=== PATIENT | female | born 1955 | race Caucasian/White ===

== ENCOUNTER 2016-11-02 17:33 | Emergency (ER) | payer MEDICARE, OTHER ==
[2016-11-02 17:46] VITALS: BP 154/72
[2016-11-02] MEDS ORDERED: Fluorescein Sodium TOPICAL* 1 MG TEST ONE (17:49)
[2016-11-02] MEDS ORDERED: BSS OPTH.SOL* BTL ONE (17:50)
[2016-11-02] MEDS ORDERED: Proparacaine 0.5% OPHTH.SOL* 15 ML BTL ONE (17:50)
--- NOTE | 2016-11-02 18:05 | UC ---
Eye Complaint HPI - HPI Summary HPI Summary: patient rolled out of bed and hit her nightstand with left eye and nose. nose bledd profusely at the time. eye pain started throughout the day. increased in blurred vision and pain. - History of Current Complaint Chief Complaint: UCHeadInjury Stated Complaint: LEFT EYE/FACIAL INJURY Time Seen by Provider: 11/02/16 18:00 Hx Obtained From: Patient Hx Last Menstrual Period: n/a ?: No Onset/Duration: Sudden Onset, Lasting Hours Timing: Constant Severity Initially: Moderate Severity Currently: Moderate Pain Intensity: 6 Pain Scale Used: 0-10 Numeric Location of Injury: Eye Lid (lower), Eye Lid (upper), Periorbital, Sclera Character: Dull Aggravating Factor(s): Nothing Alleviating Factor(s): Nothing Associated Signs And Symptoms: Positive: Vision Impairment Left Related History: Trauma - Risk Factors Penetrating Injury Risk Factor: Negative, Hammering Acute Glaucoma Risk Factors: Negative Optic Artery Occlusion Risk Factors: Negative - Allergies/Home Medications Allergies/Adverse Reactions: Allergies Allergy/AdvReac Type Severity Reaction Status Date / Time Buspirone [From Buspar] Allergy Unknown Verified 11/02/16 17:46 Reaction Details Cephalexin [From Keflex] Allergy Unknown Verified 11/02/16 17:46 Reaction Details Lidocaine Allergy Unknown Verified 11/02/16 17:46 Reaction Details Tetanus Toxoid Allergy Swelling Verified 11/02/16 17:46 Procaine [From Novocain] AdvReac Intermediate Shortness Verified 11/02/16 17:46 of Breath Epinephrine AdvReac Shortness Verified 11/02/16 17:46 of Breath antihistamines Allergy See Comment Uncoded 11/02/16 17:46 PMH/Surg Hx/FS Hx/Imm Hx Previously Healthy: Yes Endocrine History Of: Reports: Thyroid Disease - hypothyroid Denies: Diabetes Cardiovascular History Of: Reports: Hypertension - stable now without medications Denies: Cardiac Disorders Respiratory History Of: Denies: COPD, Asthma GI/ History Of: Reports: Ulcer - Surgical History Surgical History: Yes Surgery Procedure, Year, and Place: LENORE KNEE REPLACEMENT, TONSILLECTOMY. D&C. L carpal tunnel surgery. cataracts - Family History Known Family History: Positive: Cardiac Disease, Hypertension - Social History Alcohol Use: None Substance Use Type: None Smoking Status (MU): Former Smoker Type: Cigarettes, Cigars Amount Used/How Often: 1 PPD Length of Time of Smoking/Using Tobacco: 35+ years Have You Smoked in the Last Year: Yes Household Exposure Type: Cigarettes - Immunization History Most Recent Influenza Vaccination: 2012 Review of Systems Constitutional: Negative Skin: Other - bruising and abrasions Eyes: Blurred Vision ENT: Negative Respiratory: Negative Cardiovascular: Negative Gastrointestinal: Negative Genitourinary: Negative Motor: Negative Neurovascular: Negative Musculoskeletal: Negative Neurological: Negative Psychological: Negative All Other Systems Reviewed And Are Negative: Yes Physical Exam Triage Information Reviewed: Yes Appearance: Well-Appearing, Well-Nourished, Pain Distress Vital Signs: Initial Vital Signs Temp 96.0 F 11/02/16 17:44 Pulse 74 11/02/16 17:44 Resp 14 11/02/16 17:44 BP 154/72 11/02/16 17:44 Pulse Ox 99 11/02/16 17:44 Vital Signs Reviewed: Yes Eye Exam: Normal Eyes: Positive: Conjunctiva Clear, Other: - a line of brusing over both eyelids , abraision under the left eye. flurescene revealed no corneal abraisions blurred vision continues EMOI, PERRLA, denies double vision, peripheral vision intact, can differentiate colors. no conjunctival hemmorage or hyphema ENT Exam: Normal ENT: Positive: Hearing grossly normal, Pharyngeal erythema, TMs normal Dental Exam: Normal Neck exam: Normal Neck: Positive: Supple, Nontender, No Lymphadenopathy Respiratory Exam: Normal Respiratory: Positive: Chest non-tender, Lungs clear, Normal breath sounds Cardiovascular Exam: Normal Cardiovascular: Positive: RRR, No Murmur, Pulses Normal Abdominal Exam: Normal Abdomen Description: Positive: Nontender, No Organomegaly, Soft Bowel Sounds: Positive: Present Musculoskeletal Exam: Normal Musculoskeletal: Positive: Strength Intact, ROM Intact, No Edema Neurological Exam: Normal Neurological: Positive: Alert, Muscle Tone Normal Psychological Exam: Normal Skin Exam: Normal Eye Complaint Course/Dx - Course Course Of Treatment: history obtianed, medications reviewed, exam performed, Eye sxam performed no medications given, referred to Dr Johnson, to follow up friday. - Differential Dx/Diagnosis Differential Diagnosis/HQI/PQRI: Conjunctivitis, Corneal Abrasion, Detached Retina, Foreign Body, Hyphema, Penetrating Injury, Periorbital Cellulitis, Orbital Cellulitis, Other - orbital fracture Provider Diagnoses: blurred vision. bruise over left eye, from blunt trauma. abraision to nose and face Discharge - Discharge Plan Condition: Stable Disposition: HOME Patient Education Materials: Blurred Vision (ED) Additional Instructions: Continue to ice the nose and eye, Ibuprofen or tylenol for pain relief. Follow up with Dr Johnson on Friday, if vision changes get worse, pain increases follow up in ER immediately
== END 2016-11-02 18:12 | disposition home or self-care (01) ==
LOC: UCCORT 17:33
DX: S00.31XA Abrasion of nose, initial encounter (principal); S00.212A Abrasion of left eyelid and periocular area, initial encounter; W01.190A Fall on same level from slipping, tripping and stumbling with subsequent striking against furniture, initial encounter; H53.8 Other visual disturbances; E03.9 Hypothyroidism, unspecified; K28.9 Gastrojejunal ulcer, unspecified as acute or chronic, without hemorrhage or perforation; F17.210 Nicotine dependence, cigarettes, uncomplicated; Z77.22 Contact with and (suspected) exposure to environmental tobacco smoke (acute) (chronic); Z57.31 Occupational exposure to environmental tobacco smoke; Z96.653 Presence of artificial knee joint, bilateral; Z88.7 Allergy status to serum and vaccine; Z88.8 Allergy status to other drugs, medicaments and biological substances; Z88.1 Allergy status to other antibiotic agents; Z88.4 Allergy status to anesthetic agent
CPT/HCPCS: 99212; A9270-GY; G0463

== ENCOUNTER 2017-06-06 14:21 | Emergency (ER) | payer MEDICARE, OTHER ==
[2017-06-06 14:40] VITALS: BP 133/80
--- NOTE | 2017-06-06 14:56 | UC ---
Skin Complaint HPI - HPI Summary HPI Summary: itching in a patch in the center of her back---has tried some topical benadryl and topical cortaid with out relief cool compress seem to help - History of Current Complaint Chief Complaint: UCSkin Time Seen by Provider: 06/06/17 14:47 Stated Complaint: LOWER NECK/LEFT SHOULDER PAIN ITCHING Hx Obtained From: Patient Hx Last Menstrual Period: n/a ?: No Onset/Duration: Gradual Onset, Lasting Weeks - 1, Still Present Timing: Constant Onset Severity: Mild Current Severity: Mild Location: Discrete - 15 cm by 15 cm raised patch of erythema on center of back Character: Redness - itching, Raised Aggravating: Nothing Alleviating: Nothing Associated Signs & Symptoms: Positive: Negative, Rash - Allergy/Home Medications Allergies/Adverse Reactions: Allergies Allergy/AdvReac Type Severity Reaction Status Date / Time Buspirone [From Buspar] Allergy Unknown Verified 06/06/17 14:41 Reaction Details Cephalexin [From Keflex] Allergy Unknown Verified 06/06/17 14:41 Reaction Details Lidocaine Allergy Unknown Verified 06/06/17 14:41 Reaction Details Tetanus Toxoid Allergy Swelling Verified 06/06/17 14:41 Procaine [From Novocain] AdvReac Intermediate Shortness Verified 06/06/17 14:41 of Breath Epinephrine AdvReac Shortness Verified 06/06/17 14:41 of Breath antihistamines Allergy See Comment Uncoded 06/06/17 14:41 Review of Systems Constitutional: Negative Skin: Rash, Other - itchy Eyes: Negative ENT: Negative Respiratory: Negative Cardiovascular: Negative Gastrointestinal: Negative Genitourinary: Negative Motor: Negative Neurovascular: Negative Musculoskeletal: Negative Neurological: Negative Psychological: Negative All Other Systems Reviewed And Are Negative: Yes PMH/Surg Hx/FS Hx/Imm Hx Previously Healthy: No Endocrine History: Hypothyroidism, Dyslipidemia Cardiovascular History: Hypertension GI/ History: Gastroesophageal Reflux Psychological History: Bipolar Disorder - Surgical History Surgical History: Yes Surgery Procedure, Year, and Place: LENORE KNEE REPLACEMENT, TONSILLECTOMY. D&C. L carpal tunnel surgery. cataracts - Family History Known Family History: Positive: Cardiac Disease, Hypertension - Social History Occupation: Unemployed Lives: With Family Alcohol Use: None Substance Use Type: None Smoking Status (MU): Former Smoker Type: Cigarettes, Cigars Amount Used/How Often: 1 PPD Length of Time of Smoking/Using Tobacco: 35+ years Have You Smoked in the Last Year: Yes Household Exposure Type: Cigarettes Cessation Counseling: Patient Advised to Stop - Immunization History Most Recent Influenza Vaccination: 2012 Physical Exam Triage Information Reviewed: Yes Appearance: Well-Appearing, No Pain Distress, Obese Vital Signs: Initial Vital Signs Temp 98.4 F 06/06/17 14:34 Pulse 74 06/06/17 14:34 Resp 14 06/06/17 14:34 BP 133/80 06/06/17 14:34 Pulse Ox 98 06/06/17 14:34 Vital Signs Reviewed: Yes Eye Exam: Normal Eyes: Positive: Conjunctiva Clear ENT Exam: Normal ENT: Positive: Normal ENT inspection, Hearing grossly normal, TMs normal. Negative: Nasal congestion, Nasal drainage, Trismus Dental Exam: Normal Neck exam: Normal Neck: Positive: Supple, Nontender Respiratory Exam: Normal Respiratory: Positive: Chest non-tender, Lungs clear, Normal breath sounds, No respiratory distress, No accessory muscle use Cardiovascular Exam: Normal Cardiovascular: Positive: RRR, No Murmur, Pulses Normal, Brisk Capillary Refill Musculoskeletal Exam: Normal Musculoskeletal: Positive: Strength Intact, ROM Intact Neurological Exam: Normal Neurological: Positive: Alert, Muscle Tone Normal Psychological Exam: Normal Psychological: Positive: Normal Response To Family Skin Exam: Other Skin: Positive: rashes - red slight raised itchy patch Course/Dx - Course Course Of Treatment: prednisone , (no Benadryl pt, states she cannot vale the med ) cool compress follow with pcp - Differential Diagnoses - Skin Complaint Differential Diagnoses: Contact Dermatitis, Impetigo, Local Allergic Reaction, Scabies - Diagnoses Provider Diagnoses: contact dermatitis Discharge - Discharge Plan Condition: Stable Disposition: HOME Prescriptions: predniSONE TAB* [Deltasone TAB*] 10 mg PO DAILY #20 tab Patient Education Materials: Contact Dermatitis (ED), Cold Compress or Soak (ED ) Referrals: Shruthi Zimmerman MD [Primary Care Provider] - 1 Week
== END 2017-06-06 15:10 | disposition home or self-care (01) ==
LOC: UCCORT 14:21
DX: L25.9 Unspecified contact dermatitis, unspecified cause (principal); Z72.0 Tobacco use
CPT/HCPCS: 99212; G0463

== ENCOUNTER 2017-09-10 14:22 | Emergency (ER) | payer MEDICARE, OTHER ==
--- NOTE | 2017-09-10 15:23 | UC ---
Complaint Female HPI - HPI Summary HPI Summary: 62 year old female presents with severe llq pain. - History Of Current Complaint Chief Complaint: UCGeneralIllness Stated Complaint: NAUSEA,HIP,STOMACH Time Seen by Provider: 09/10/17 15:21 Hx Obtained From: Patient Hx Last Menstrual Period: n/a Onset/Duration: Sudden Onset Severity Initially: Moderate Severity Currently: Moderate - Allergies/Home Medications Allergies/Adverse Reactions: Allergies Allergy/AdvReac Type Severity Reaction Status Date / Time Buspirone [From Buspar] Allergy Unknown Verified 09/10/17 15:24 Reaction Details Cephalexin [From Keflex] Allergy Unknown Verified 09/10/17 15:24 Reaction Details Lidocaine Allergy Unknown Verified 09/10/17 15:24 Reaction Details Tetanus Toxoid Allergy Swelling Verified 09/10/17 15:24 Procaine [From Novocain] AdvReac Intermediate Shortness Verified 09/10/17 15:24 of Breath Epinephrine AdvReac Shortness Verified 09/10/17 15:24 of Breath antihistamines Allergy See Comment Uncoded 09/10/17 15:24 Home Medications: Home Medications Sucralfate TAB* [Carafate*] 1 gm QID 09/10/17 [History Confirmed 09/10/17] PMH/Surg Hx/FS Hx/Imm Hx Previously Healthy: Yes - Surgical History Surgical History: Yes Surgery Procedure, Year, and Place: LENORE KNEE REPLACEMENT, TONSILLECTOMY. D&C. L carpal tunnel surgery. cataracts - Family History Known Family History: Positive: Cardiac Disease, Hypertension - Social History Alcohol Use: None Substance Use Type: None Smoking Status (MU): Former Smoker Type: Cigarettes, Cigars Amount Used/How Often: 1 PPD Length of Time of Smoking/Using Tobacco: 35+ years Have You Smoked in the Last Year: Yes Household Exposure Type: Cigarettes - Immunization History Most Recent Influenza Vaccination: 2012 Review of Systems Constitutional: Negative Skin: Negative Eyes: Negative ENT: Negative Respiratory: Negative Cardiovascular: Negative Gastrointestinal: Abdominal Pain - llq pain Genitourinary: Negative Motor: Negative Neurovascular: Negative Musculoskeletal: Negative Neurological: Negative Psychological: Negative All Other Systems Reviewed And Are Negative: Yes Physical Exam Triage Information Reviewed: Yes Vital Signs Reviewed: Yes Eye Exam: Normal ENT Exam: Normal Dental Exam: Normal Neck exam: Normal Neck: Positive: 1 Respiratory Exam: Normal Cardiovascular Exam: Normal Abdominal Exam: Normal Musculoskeletal Exam: Normal Neurological Exam: Normal Psychological Exam: Normal Skin Exam: Normal Complaint Female Dx - Differential Dx/Diagnosis Provider Diagnoses: left lower quadrant pain Discharge - Discharge Plan Condition: Stable Disposition: OTHER Discharge Disposition Comment: patient suggested to go to the er. Patient Education Materials: Diverticulitis (ED) Referrals: Shruthi Zimmerman MD [Primary Care Provider] - Additional Instructions: patient suggested to go to the er for severe rlq pain.
[2017-09-10 15:34] VITALS: BP 132/75
== END 2017-09-10 16:12 ==
LOC: UCCORT 14:22
DX: R10.32 Left lower quadrant pain (principal); Z96.653 Presence of artificial knee joint, bilateral; Z98.49 Cataract extraction status, unspecified eye; Z88.4 Allergy status to anesthetic agent; Z88.1 Allergy status to other antibiotic agents; Z88.7 Allergy status to serum and vaccine; Z87.891 Personal history of nicotine dependence
CPT/HCPCS: 99212; G0463

== ENCOUNTER 2017-10-01 20:22 | Emergency (ER) | payer MEDICARE, OTHER ==
[2017-10-01 21:42] VITALS: BP 149/74
[2017-10-01] MEDS ORDERED: Sulfamethox/Trimethoprim DS 800/160* TAB PO ONE (22:04)
--- NOTE | 2017-10-01 22:11 | ED ---
Skin Complaint - HPI Summary HPI Summary: 62 yr old female with the compalint of cut left hand on a clean steak knife a week ago. She has localized redness over the cut with some pain, 4/10. No pain up arm. No fever or chills No other complaints. - History of Current Complaint Chief Complaint: UCUpperExtremity Time Seen by Provider: 10/01/17 21:43 Stated Complaint: LEFT HAND INJURY Hx Last Menstrual Period: n/a - Allergy/Home Medications Allergies/Adverse Reactions: Allergies Allergy/AdvReac Type Severity Reaction Status Date / Time Buspirone [From Buspar] Allergy Unknown Verified 10/01/17 21:43 Reaction Details Cephalexin [From Keflex] Allergy Unknown Verified 10/01/17 21:43 Reaction Details Lidocaine Allergy Unknown Verified 10/01/17 21:43 Reaction Details Tetanus Toxoid Allergy Swelling Verified 10/01/17 21:43 Procaine [From Novocain] AdvReac Intermediate Shortness Verified 10/01/17 21:43 of Breath Epinephrine AdvReac Shortness Verified 10/01/17 21:43 of Breath antihistamines Allergy See Comment Uncoded 10/01/17 21:43 Home Medications: Home Medications Ondansetron TAB* [Zofran 4 MG Tab*] 4 mg PO Q8H PRN 10/01/17 [History Confirmed 10/01/17] PMH/Surg Hx/FS Hx/Imm Hx Endocrine/Hematology History: Reports: Hx Thyroid Disease - hypothyroid Denies: Hx Diabetes Cardiovascular History: Reports: Hx Hypertension Respiratory History: Denies: Hx Asthma, Hx Chronic Obstructive Pulmonary Disease (COPD) GI History: Reports: Hx Ulcer - Surgical History Surgery Procedure, Year, and Place: LENORE KNEE REPLACEMENT, TONSILLECTOMY. D&C. L carpal tunnel surgery. cataracts Infectious Disease History: No Infectious Disease History: Denies: Hx Clostridium Difficile, Hx Hepatitis, Hx Human Immunodeficiency Virus (HIV), Hx of Known/Suspected MRSA, Hx Shingles, Hx Tuberculosis, Hx Known/ Suspected VRE, Hx Known/Suspected VRSA, History Other Infectious Disease, Traveled Outside the [place] in Last 30 Days - Family History Known Family History: Positive: Cardiac Disease, Hypertension - Social History Alcohol Use: None Substance Use Type: Reports: None Smoking Status (MU): Former Smoker Type: Cigarettes, Cigars Amount Used/How Often: 1 PPD Length of Time of Smoking/Using Tobacco: 35+ years Have You Smoked in the Last Year: Yes Review of Systems Positive: Other - redness left hand over cut from week ago. All Other Systems Reviewed And Are Negative: Yes Physical Exam Triage Information Reviewed: Yes Vital Signs On Initial Exam: Initial Vitals Temp Pulse Resp BP Pulse Ox 96.7 F 69 17 149/74 100 10/01/17 21:38 10/01/17 21:38 10/01/17 21:38 10/01/17 21:38 10/01/17 21:38 Vital Signs Reviewed: Yes Appearance: Positive: Well-Appearing, No Pain Distress Skin: Positive: Other - redness to the left hand 2 cm in diameter over a 1 cm cut that is well approximated. No abscess and no drainage or fluctuance. no tenosynovitis. Location is over the 1st metacarpal area. no joint involvement. Eyes: Positive: EOMI ENT: Positive: Normal ENT inspection Respiratory/Lung Sounds: Positive: Clear to Auscultation, Breath Sounds Present Cardiovascular: Positive: RRR. Negative: Murmur Abdomen Description: Positive: Nontender Musculoskeletal: Positive: Strength/ROM Intact Neurological: Positive: Sensory/Motor Intact, Alert, Oriented to Person Place, Time, CN Intact II-III - Johnathon Coma Scale Best Eye Response: 4 - Spontaneous Best Motor Response: 6 - Obeys Commands Best Verbal Response: 5 - Oriented Diagnostics - Vital Signs Vital Signs Temp Pulse Resp BP Pulse Ox 10/01/17 21:38 96.7 F 69 17 149/74 100 - Laboratory Lab Statement: Any lab studies that have been ordered have been reviewed, and results considered in the medical decision making process. Course/Dx - Course Course Of Treatment: 62 yr old female who cannot get tetanus shots due to severe allergies. She has a one week old cut with localized cellulitis and plan to DC home on bactrim DS. FU with PMD - Diagnoses Provider Diagnoses: Laceration of hand with infection, Hypertension Discharge - Discharge Plan Condition: Good Disposition: HOME Prescriptions: Sulfamethox/Trimethoprim DS* [Bactrim DS 800/160 TAB*] 1 tab PO BID #20 tab Patient Education Materials: Cellulitis (ED), Hypertension (ED) Referrals: Shruthi Zimmerman MD [Primary Care Provider] - 2 Days
== END 2017-10-01 22:27 | disposition home or self-care (01) ==
LOC: UCCORT 20:22
DX: S61.412A Laceration without foreign body of left hand, initial encounter (principal); L08.9 Local infection of the skin and subcutaneous tissue, unspecified; W26.0XXA Contact with knife, initial encounter; Y93.9 Activity, unspecified; Y92.9 Unspecified place or not applicable; I10 Essential (primary) hypertension; E03.9 Hypothyroidism, unspecified; Z96.653 Presence of artificial knee joint, bilateral; Z88.4 Allergy status to anesthetic agent; Z88.1 Allergy status to other antibiotic agents; Z88.7 Allergy status to serum and vaccine; Z88.8 Allergy status to other drugs, medicaments and biological substances; Z87.891 Personal history of nicotine dependence
CPT/HCPCS: 99212; A9270-GY; G0463

== ENCOUNTER 2017-10-03 20:17 | Emergency (ER) | payer MEDICARE, OTHER ==
--- NOTE | 2017-10-03 20:25 | UC ---
Hand/Wrist HPI - HPI Summary HPI Summary: 62 year old female presents with complains of worsening left hand erythema/ swelling after puncture wound secondary to a steak knife. Patient was placed on Bactrim/Bactroban from the previous visit. - History Of Current Complaint Stated Complaint: RE-CK LEFT HAND COMPLAINT Time Seen by Provider: 10/03/17 20:25 Hx Obtained From: Patient Hx Last Menstrual Period: n/a Onset/Duration: Lasting Days Severity Initially: Moderate Severity Currently: Moderate - Allergies/Home Medications Allergies/Adverse Reactions: Allergies Allergy/AdvReac Type Severity Reaction Status Date / Time Buspirone [From Buspar] Allergy Unknown Verified 10/03/17 20:31 Reaction Details Cephalexin [From Keflex] Allergy Unknown Verified 10/03/17 20:31 Reaction Details Lidocaine Allergy Unknown Verified 10/03/17 20:31 Reaction Details Tetanus Toxoid Allergy Swelling Verified 10/03/17 20:31 Procaine [From Novocain] AdvReac Intermediate Shortness Verified 10/03/17 20:31 of Breath Epinephrine AdvReac Shortness Verified 10/03/17 20:31 of Breath antihistamines Allergy See Comment Uncoded 10/03/17 20:31 PMH/Surg Hx/FS Hx/Imm Hx Previously Healthy: Yes - Surgical History Surgical History: Yes Surgery Procedure, Year, and Place: LENORE KNEE REPLACEMENT, TONSILLECTOMY. D&C. L carpal tunnel surgery. cataracts - Family History Known Family History: Positive: Cardiac Disease, Hypertension - Social History Alcohol Use: None Substance Use Type: None Smoking Status (MU): Former Smoker Type: Cigarettes, Cigars Amount Used/How Often: 1 PPD Length of Time of Smoking/Using Tobacco: 35+ years Have You Smoked in the Last Year: Yes Household Exposure Type: Cigarettes - Immunization History Most Recent Influenza Vaccination: 2012 Review of Systems Constitutional: Negative Skin: Other - left hand abscess Eyes: Negative ENT: Negative Respiratory: Negative Cardiovascular: Negative Gastrointestinal: Negative Genitourinary: Negative Motor: Negative Neurovascular: Negative Musculoskeletal: Negative Neurological: Negative Psychological: Negative All Other Systems Reviewed And Are Negative: Yes Physical Exam Triage Information Reviewed: Yes Vital Signs Reviewed: Yes Eye Exam: Normal ENT Exam: Normal Dental Exam: Normal Neck exam: Normal Neck: Positive: 1 Respiratory Exam: Normal Cardiovascular Exam: Normal Abdominal Exam: Normal Musculoskeletal Exam: Normal Neurological Exam: Normal Psychological Exam: Normal Skin: Positive: Other - left hand abscess Procedures - Incision and Drainage Site: base of left thumb Anesthesia: Local, Lidocaine Instrument(s): Scalpel Packing: Other - no packing, steri strips , telfa and kerlix Hand/Wrist Course/Dx - Differential Dx/Diagnosis Provider Diagnoses: left hand abscess Discharge - Discharge Plan Condition: Stable Disposition: HOME Prescriptions: Amoxicillin/Clavulanate TAB* [Augmentin TAB 875*] 875 mg PO BID #20 tab Metronidazole [Flagyl 500 MG TAB] 500 mg PO BID #14 tab Patient Education Materials: Abscess Follow-up (ED) Referrals: Shruthi Zimmerman MD [Primary Care Provider] -
[2017-10-03 20:31] VITALS: BP 124/44
[2017-10-03] MEDS ORDERED: Lidocaine 1% MPF* 2 ML VIAL INJ ONE (20:54)
--- NOTE | 2017-10-03 20:55 | RAD ---
INDICATION: Left hand foreign body COMPARISON: September 07, 2010 TECHNIQUE: AP, lateral, and oblique views were obtained. FINDINGS: There is no acute bony change. 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 There is a corticated ossific density near the trapezium consistent with post traumatic or degenerative change. A small ossific or calcific fragment was also described previously. There is mild soft tissue swelling base of the thumb IMPRESSION: NO ACUTE FRACTURE OR FOREIGN BODY. SOFT TISSUE SWELLING AT THE BASE OF THE THUMB.
[2017-10-03] MEDS ORDERED: metroNIDAZOLE TAB* 250 MG PO ONE (21:24)
[2017-10-03] MEDS ORDERED: Amoxicillin/Clavulanate TAB* 875 MG PO ONE (21:24)
== END 2017-10-03 21:31 | disposition home or self-care (01) ==
LOC: UCCORT 20:17
DX: L02.512 Cutaneous abscess of left hand (principal); Z88.4 Allergy status to anesthetic agent; Z88.3 Allergy status to other anti-infective agents; Z87.891 Personal history of nicotine dependence; Z96.653 Presence of artificial knee joint, bilateral
CPT/HCPCS: 10060; 87070; 87205; 99212; A9270-GY; G0463

== ENCOUNTER 2017-10-04 15:29 | Emergency (ER) | payer MEDICARE, OTHER ==
--- NOTE | 2017-10-04 15:47 | UC ---
HPI Wound/Suture Re-check - HPI Summary HPI Summary: 62 year old female presents for right hand wound recheck. - History Of Current Complaint Stated Complaint: RECHECK LEFT HAND WOUND Time Seen by Provider: 10/04/17 15:47 Hx Obtained From: Patient Hx Last Menstrual Period: n/a Onset/Duration: Lasting Days Severity: Moderate - Allergies/Home Medications Allergies/Adverse Reactions: Allergies Allergy/AdvReac Type Severity Reaction Status Date / Time Buspirone [From Buspar] Allergy Unknown Verified 10/03/17 20:31 Reaction Details Cephalexin [From Keflex] Allergy Unknown Verified 10/03/17 20:31 Reaction Details Lidocaine Allergy Unknown Verified 10/03/17 20:31 Reaction Details Tetanus Toxoid Allergy Swelling Verified 10/03/17 20:31 Procaine [From Novocain] AdvReac Intermediate Shortness Verified 10/03/17 20:31 of Breath Epinephrine AdvReac Shortness Verified 10/03/17 20:31 of Breath antihistamines Allergy See Comment Uncoded 10/03/17 20:31 PMH/Surg Hx/FS Hx/Imm Hx Previously Healthy: Yes - Surgical History Surgical History: Yes Surgery Procedure, Year, and Place: LENORE KNEE REPLACEMENT, TONSILLECTOMY. D&C. L carpal tunnel surgery. cataracts - Family History Known Family History: Positive: Cardiac Disease, Hypertension - Social History Alcohol Use: None Substance Use Type: None Smoking Status (MU): Former Smoker Type: Cigarettes, Cigars Amount Used/How Often: 1 PPD Length of Time of Smoking/Using Tobacco: 35+ years Have You Smoked in the Last Year: Yes Household Exposure Type: Cigarettes - Immunization History Most Recent Influenza Vaccination: 2012 Review of Systems Constitutional: Negative Skin: Negative Eyes: Negative ENT: Negative Respiratory: Negative Cardiovascular: Negative Gastrointestinal: Negative Genitourinary: Negative Motor: Negative Neurovascular: Negative Musculoskeletal: Other: - right hand wound recheck Neurological: Negative Psychological: Negative All Other Systems Reviewed And Are Negative: Yes Physical Exam Triage Information Reviewed: Yes Vital Signs Reviewed: Yes Eye Exam: Normal ENT Exam: Normal Dental Exam: Normal Neck exam: Normal Neck: Positive: 1 Respiratory Exam: Normal Cardiovascular Exam: Normal Abdominal Exam: Normal Musculoskeletal Exam: Normal Neurological Exam: Normal Psychological Exam: Normal Skin: Positive: Other - right hand wound check decreased erythema/swelling Course/Dx - Differential Dx - Laceration/Wound Provider Diagnoses: right base of thumb wound recheck post I/D 10/03/17 Discharge - Discharge Plan Condition: Stable Disposition: HOME Patient Education Materials: Acute Wound Care (ED) Referrals: Shruthi Zimmerman MD [Primary Care Provider] -
[2017-10-04 15:54] VITALS: BP 133/79
== END 2017-10-04 16:09 | disposition home or self-care (01) ==
LOC: UCCORT 15:29
DX: Z48.00 Encounter for change or removal of nonsurgical wound dressing (principal); Z87.891 Personal history of nicotine dependence
CPT/HCPCS: 99212; G0463

== ENCOUNTER 2017-10-05 14:20 | Emergency (ER) | payer MEDICARE, OTHER ==
--- NOTE | 2017-10-05 14:31 | UC ---
HPI Wound/Suture Re-check - HPI Summary HPI Summary: 62 year old female presents with left hand wound check. - History Of Current Complaint Stated Complaint: LFT HAND-RECHECK Time Seen by Provider: 10/05/17 14:31 Hx Obtained From: Patient Hx Last Menstrual Period: n/a Onset/Duration: Sudden Onset Severity: Moderate Pain Scale Used: 0-10 Numeric - 0 - Allergies/Home Medications Allergies/Adverse Reactions: Allergies Allergy/AdvReac Type Severity Reaction Status Date / Time Buspirone [From Buspar] Allergy Unknown Verified 10/05/17 14:54 Reaction Details Cephalexin [From Keflex] Allergy Unknown Verified 10/05/17 14:54 Reaction Details Tetanus Toxoid Allergy Swelling Verified 10/05/17 14:54 Procaine [From Novocain] AdvReac Intermediate Shortness Verified 10/05/17 14:54 of Breath Epinephrine AdvReac Shortness Verified 10/05/17 14:54 of Breath antihistamines Allergy See Comment Uncoded 10/05/17 14:54 Home Medications: Home Medications Pantoprazole Sodium [Protonix] 20 mg PO DAILY 10/05/17 [History Confirmed ] PMH/Surg Hx/FS Hx/Imm Hx Previously Healthy: Yes - Surgical History Surgical History: Yes Surgery Procedure, Year, and Place: LENORE KNEE REPLACEMENT, TONSILLECTOMY. D&C. L carpal tunnel surgery. cataracts - Family History Known Family History: Positive: Cardiac Disease, Hypertension - Social History Alcohol Use: None Substance Use Type: None Smoking Status (MU): Former Smoker Type: Cigarettes, Cigars Amount Used/How Often: 1 PPD Length of Time of Smoking/Using Tobacco: 35+ years Have You Smoked in the Last Year: Yes Household Exposure Type: Cigarettes - Immunization History Most Recent Influenza Vaccination: 2012 Review of Systems Constitutional: Negative Skin: Other - left hand wound check Eyes: Negative ENT: Negative Respiratory: Negative Cardiovascular: Negative Gastrointestinal: Negative Genitourinary: Negative Motor: Negative Neurovascular: Negative Musculoskeletal: Negative Neurological: Negative Psychological: Negative All Other Systems Reviewed And Are Negative: Yes Physical Exam Triage Information Reviewed: Yes Appearance: Well-Appearing Vital Signs Reviewed: Yes Eye Exam: Normal ENT Exam: Normal Dental Exam: Normal Neck exam: Normal Neck: Positive: 1 Respiratory Exam: Normal Cardiovascular Exam: Normal Abdominal Exam: Normal Musculoskeletal Exam: Normal Neurological Exam: Normal Psychological Exam: Normal Skin: Positive: Other - left hand wound recheck (healing, < erythema, < pain) Course/Dx - Differential Dx - Laceration/Wound Provider Diagnoses: left hand wound recheck Discharge - Discharge Plan Condition: Stable Disposition: HOME Patient Education Materials: Acute Wound Care (ED) Referrals: Shruthi Zimmerman MD [Primary Care Provider] -
[2017-10-05 15:05] VITALS: BP 132/56
== END 2017-10-05 15:19 | disposition home or self-care (01) ==
LOC: UCCORT 14:20
DX: Z48.00 Encounter for change or removal of nonsurgical wound dressing (principal); Z87.891 Personal history of nicotine dependence
CPT/HCPCS: 99212; G0463

== ENCOUNTER 2018-01-11 14:08 | Emergency (ER) | payer MEDICARE, OTHER ==
--- NOTE | 2018-01-11 14:23 | UC ---
Skin Complaint HPI - HPI Summary HPI Summary: Pt presents with redness and swelling in left axilla that began 3 days ago. Pt says that she gets skin abscesses often and this feels the same. Gets them often under her arms. Denies fever, chills, or recent illness. - History of Current Complaint Hx Obtained From: Patient Hx Last Menstrual Period: n/a Onset/Duration: Gradual Onset Skin Exposure Onset/Duration: Days Ago Timing: Constant Onset Severity: Moderate Current Severity: Moderate Pain Intensity: 7 Pain Scale Used: 0-10 Numeric <Alexis Robert - Last Filed: 01/11/18 15:04> <Autumn Urena - Last Filed: 01/12/18 08:31> - History of Current Complaint Time Seen by Provider: 01/11/18 14:22 Stated Complaint: ABCESS UNDER LEFT ARM - Allergy/Home Medications Allergies/Adverse Reactions: Allergies Allergy/AdvReac Type Severity Reaction Status Date / Time buspirone [From BuSpar] Allergy Unknown Verified 01/11/18 14:30 Reaction Details cephalexin Allergy Unknown Verified 01/11/18 14:30 Reaction Details epinephrine Allergy Shortness Verified 01/11/18 14:30 of Breath procaine Allergy Shortness Verified 01/11/18 14:30 of Breath Tetanus Vaccines and Toxoid Allergy Swelling Verified 01/11/18 14:30 antihistamines Allergy See Comment Uncoded 01/11/18 14:30 Home Medications: Home Medications Aspirin [Aspir-Low] 81 mg PO DAILY 01/11/18 [History Confirmed 01/11/18] Gabapentin 300 mg PO SEE INSTRUCTIONS 01/11/18 [History Confirmed 01/11/18] Krill Oil 500 mg PO DAILY 01/11/18 [History Confirmed 01/11/18] Rosuvastatin Calcium [Crestor] 20 mg PO QPM 01/11/18 [History Confirmed 01/11/18 ] clonazePAM TAB(*) [KlonoPIN TAB(*)] 1 mg PO TID PRN 01/11/18 [History Confirmed 01/11/18] Review of Systems Constitutional: Negative Skin: Other - Skin abscess left axilla Respiratory: Negative Cardiovascular: Negative Neurovascular: Negative Musculoskeletal: Negative Neurological: Negative Psychological: Negative All Other Systems Reviewed And Are Negative: Yes <Alexis Robert - Last Filed: 01/11/18 15:04> PMH/Surg Hx/FS Hx/Imm Hx Endocrine History: Dyslipidemia Cardiovascular History: Hypertension GI/ History: Gastroesophageal Reflux Psychological History: Anxiety, Depression, Bipolar Disorder - Surgical History Surgical History: Yes Surgery Procedure, Year, and Place: LENORE KNEE REPLACEMENT, TONSILLECTOMY. D&C. L carpal tunnel surgery. cataracts - Family History Known Family History: Positive: Cardiac Disease, Hypertension - Social History Lives: With Family Alcohol Use: None Substance Use Type: None Smoking Status (MU): Former Smoker Type: Cigarettes, Cigars Amount Used/How Often: 1 PPD Length of Time of Smoking/Using Tobacco: 35+ years Have You Smoked in the Last Year: Yes Household Exposure Type: Cigarettes - Immunization History Most Recent Influenza Vaccination: 2012 Most Recent Tetanus Shot: ALLERGIC <Alexis Robert - Last Filed: 01/11/18 15:04> Physical Exam - Summary Physical Exam Summary: GENERAL: NAD. WDWN. No pain distress. SKIN: Left axilla: 1.5cm area of erythema, tenderness, and induration. No discharge, bleeding, or streaking. NECK: Supple. Nontender. No lymphadenopathy. CHEST: CTAB. No r/r/w. No accessory muscle use. Breathing comfortably and in no distress. CV: RRR. Without m/r/g. Pulses intact. Brisk cap refill. NEURO: Alert. CN II-XII grossly intact. PSYCH: Age appropriate behavior. Triage Information Reviewed: Yes <Alexis Robert - Last Filed: 01/11/18 15:04> Vital Signs: Initial Vital Signs Temp 98.5 F 01/11/18 14:45 Pulse 79 01/11/18 14:45 Resp 20 01/11/18 14:45 BP 129/62 01/11/18 14:45 Pulse Ox 97 01/11/18 14:45 <Autumn Urena - Last Filed: 01/12/18 08:31> Course/Dx - Course Course Of Treatment: A time out was performed, witnessed, and signed. 2mL of 2% lidocaine without epi was administered and good anesthetization was achieved. The abscess was lanced with a #11 blade. Copious purulent material was able to be expressed. Scant bleeding stopped with direct pressure. Pt tolerated procedure well. - Diagnoses Provider Diagnoses: Left axillary abscess <Alexis Robert - Last Filed: 01/11/18 15:04> Discharge - Sign-Out/Discharge Documenting (check all that apply): Discharge - Billing Disposition and Condition Condition: STABLE Disposition: HOME <Alexis Robert - Last Filed: 01/11/18 15:04> - Billing Disposition and Condition Condition: STABLE Disposition: HOME <Autumn Urena - Last Filed: 01/12/18 08:31> - Discharge Plan Condition: Stable Disposition: HOME Prescriptions: Sulfamethox/Trimethoprim DS* [Bactrim DS 800/160 TAB*] 1 tab PO BID #14 tab Patient Education Materials: Abscess (ED) Referrals: Shruthi Zimmerman MD [Primary Care Provider] - Additional Instructions: If you develop a fever, shortness of breath, chest pain, new or worsening symptoms - please call your PCP or go to the ED. Attestation Statement User Type: Provider - I was available for consult. This patient was seen by the [facility]. The patient was not presented to, seen by, or examined by me. -Eladia <Autumn Urena - Last Filed: 01/12/18 08:31>
[2018-01-11] MEDS ORDERED: Lidocaine 2% PF * 5 ML VIAL INJ ONE (14:26)
[2018-01-11 14:49] VITALS: BP 129/62
== END 2018-01-11 15:08 | disposition home or self-care (01) ==
LOC: UCCORT 14:08
DX: L02.412 Cutaneous abscess of left axilla (principal); F17.210 Nicotine dependence, cigarettes, uncomplicated; F17.290 Nicotine dependence, other tobacco product, uncomplicated; Z88.3 Allergy status to other anti-infective agents; Z88.8 Allergy status to other drugs, medicaments and biological substances; Z88.4 Allergy status to anesthetic agent; Z88.7 Allergy status to serum and vaccine
CPT/HCPCS: 10060; 99212; G0463

== ENCOUNTER 2018-10-01 10:24 | Emergency (ER) | payer MEDICARE, OTHER ==
--- OUTSIDE RECORDS SUMMARY | 2018-10-01 10:48 | XMS REPORT | Continuity of Care Document ---
:1955 External Reference #:[id number] Author Name Kristi Alaniz Care Team Providers Name Role Phone Shruthi Zimmerman M.D. Care Team Information Notary Public Unavailable Shruthi Zimmerman M.D. Primary Care Physician Unavailable Payers Type Date Identification Numbers Payment Provider Subscriber Policy Number: [id number] Medicare Marbella Fraga PayID: [id number] [address] [place] [address] Effective: 2016 Policy Number: [id number] Lifetime Benefits Eddie Fraga Group Number: [id number] [address] [address] [facility]: [facility] [place] [id number] Advance Directives Description No Information Available Problems Date Description Provider Status Onset: 12/15/2013 Microscopic hematuria Brandee Lau NP/PA Active Onset: 08/31/2018 Delay when starting to pass urine Andrew Robertson MD Active Onset: 06/22/2018 Urgent desire to urinate Andrew Robertson MD Active Onset: 12/18/2017 [place] hematuria Andrew Robertson MD Active Family History Date Family Member(s) Problem(s) Comments Father due to Heart Disease () Mother Alzheimer's Disease Mother Parkinson's Disease Mother Charcot david tooth disease First Brother due to Heart Disease () First Sister Kidney Disease First Sister Celiac Social History Type Date Description Comments Sex Unknown Marital Status Patient is Occupation Disabled Cigarette Use 08/30/2018 Patient smokes E-Cigarettes Tobacco Use Start: Unknown End: Unknown Former Cigarette Smoker Smoking Status Reviewed: 09/24/18 Former Cigarette Smoker Tobacco Use Start: Unknown Never Smoked Cigars Tobacco Use Start: Unknown Never Smoked A Pipe ETOH Use Patient denies alcohol use Allergies, Adverse Reactions, Alerts Date Description Reaction Status Severity Comments 12/10/2013 Epinephrine Urticaria Active Moderate 12/10/2013 Antihistamines unknown Active Severe Medications Medication Date Status Form Strength Qnty SIG Indications Ordering Provider Clonazepam Active Tablets 1mg Lamotrigine Active Tablets 100mg Cymbalta Active Caps DR 30mg 30cap 1 po qd Part s [place] Carbonate Active Tablets 300mg Hydrochlorothiazide Active Tablets 25mg 30tab 1 po qd s Gabapentin Active Capsules 300mg Omeprazole Active Capsules 40mg DR Levothyroxine Sodium Active Tablets 125mcg Aspirin Active Tablets 81mg daily Probiotic Active Capsules 1 x a day Krill Oil Active Capsules 300mg Potassium Citrate ER Active Tablets 10Meq ER (1080 mg) Primidone Active Tablets 50mg 1 by mouth daily Rosuvastatin Calcium Active Tablets 20mg Take One Tablet By Mouth Daily Sucralfate Active Tablets 1gm Take One Tablet By Mouth Four Times Daily Before Meals And Nightly Pyridium / Hx Tablets 100mg 10tab 1 by Andrew Robertson MD - twice a Pyridium / Hx Tablets 100mg 10tab 1 by Andrew Vyas Paul Robertson MD - twice a Macrobid 06/22 Hx Capsules 100mg 10cap 1 by Andrew Vyas Paul Robertson MD - twice a Ciprofloxacin HCL 11/27 Hx Tablets 500mg 6tabs 1 by Andrew Vyas Paul Robertson MD - twice a Ciprofloxacin HCL 03/27 Hx Tablets 500mg 6tabs 1 po bid Deepthi Og Matthews M.D. 03/30 Irbesartan Hx Tablets 300mg 1 po qd - 10/29 Immunizations Description No Information Available Vital Signs Date Vital Result Comment 09/24/2018 10:55am Post Void Residual ml 208 08/31/2018 2:26pm Height 67 inches 5'7" Weight 210.00 lb Weight 95.256 kg BMI (Body Mass Index) 32.9 kg/m2 Post Void Residual ml 15 ml 06/22/2018 11:14am Height 67 inches 5'7" Weight 213.00 lb Weight 96.617 kg BMI (Body Mass Index) 33.4 kg/m2 Post Void Residual ml 118 bladder scanner 11/27/2017 11:03am Height 67 inches 5'7" Weight 211.00 lb Weight 95.710 kg BMI (Body Mass Index) 33.0 kg/m2 BP Systolic 142 mmHg BP Diastolic 80 mmHg Heart Rate 76 /min Respiratory Rate 20 /min 10/30/2017 2:24pm Height 67 inches 5'7" Weight 211.00 lb Weight 95.710 kg BMI (Body Mass Index) 33.0 kg/m2 BP Systolic 150 mmHg BP Diastolic 82 mmHg Heart Rate 76 /min 03/18/2017 10:28am Height 67 inches 5'7" Weight 218.00 lb Weight 98.885 kg BMI (Body Mass Index) 34.1 kg/m2 BP Systolic 166 mmHg BP Diastolic 82 mmHg Heart Rate 79 /min Respiratory Rate 20 /min Body Temperature 98.8 F 12/10/2013 9:52am Height 66 inches 5'6" Weight 225.00 lb Weight 102.060 kg BMI (Body Mass Index) 36.3 kg/m2 BP Systolic 117 mmHg left wrist audio BP Diastolic 73 mmHg left wrist audio Heart Rate 79 /min Body Temperature 98.3 F Results Test Date Facility Test Result H/L Range Note Urine Microscopy 09/01/2018 [facility] Urine WBC 6- 10 /HPF + 0 - 5 [address] [place] [address] [phone] Urine RBC 3-5 /HPF + 0-2 Bacteria RARE /HPF Neg Crystals NEG /HPF Neg Epithelial Cells 2+ /HPF Neg Sperm NEG /HPF Neg Yeast NEG /HPF Neg UACast NEG /LPF Neg Urine Culture 09/01/2018 [facility] Urine Culture URETHRAL CIPRIANO [address] [place] [address] [phone] Quantity 10,000 - 50,000 <SEE NOTE> 2 230 Ua Routine 06/22/2018 [facility] Ua Glucose Negative REF TO DR ADDRESS ON ORDER FOR (742)- - Ua Protein Negative Ua Nitrite Negative Ua Leuko Negative Ua Blood 1+ * Ua Color Yellow Ua Ketones Negative Ua Clarity Clear Ua Specific Lorimor 1.010 1.003-1.030 Ua PH 6.0 5.0-7.5 Ua Bilirubin Negative Ua Urobilinogen 0.2 E.U./dL 0.0-1.0 Urine Cytology 06/22/2018 [facility] History R39.15 N [address] [place] [address] [phone] Specimen Adequacy Satisfactory for <SEE NOTE> N 3 BodySite Voided - Clean C <SEE NOTE> N 4 Gross Description Received in a sp <SEE NOTE> N 5 Microscopic Description None. N Final Diagnosis NEGATIVE FOR HIG <SEE NOTE> N 6 CPTCode 42642 N PDF Report SEE IMAGE Urine Culture 06/22/2018 [facility] Urine Culture NO GROWTH: 7, [address] <[place] [address] NOTE> [phone] Urine Microscopy 06/22/2018 [facility] Urine WBC 3-5 /HPF 0 - [address] [place] [id number] [phone] Urine RBC 3-5 /HPF + 0-2 Bacteria 1+ /HPF Neg Crystals NEG /HPF Neg Epithelial Cells 1+ /HPF Neg Sperm NEG /HPF Neg Yeast NEG /HPF Neg UACast NEG /LPF Neg CBC W/Diff 12/11/2017 Outside Facility Hemoglobin 14.1 (315)- - Hematocrit 40.8 BMP 12/11/2017 Outside Facility BUN - Urea Nitrogen 10 (315)- - Creatinine 1.1 Calcium 9.5 Potassium 3.8 230 Ua Routine 11/27/2017 [facility] Ua Glucose Negative REF TO DR ADDRESS ON ORDER FOR (245)- - Ua Protein Negative Ua Nitrite Negative Ua Leuko 1+ * Ua Blood 1+ * Ua Color Yellow Ua Ketones Negative Ua Clarity Clear Ua Specific Lorimor 1.015 1.003-1.030 Ua PH 6.0 5.0-7.5 Ua Bilirubin Negative Ua Urobilinogen 0.2 E.U./dL 0.0-1.0 Basic Metabolic 10/30/2017 [facility] Creatinine 1.09 mg/dL 0.57-1.[address] [place] [address] [phone] Glucose 111.0 mg/dL Abnormal 70.0-99.0 Co2 28.0 mmol/L 22.0-31.0 Calcium 10.1 mg/dL 8.4-10.2 BUN 12.0 mg/dL 7.0-24.0 BUN/Creat Ratio 11.0 Na 142.0 mmol/L 136.0-145.0 K 3.6 mmol/L 3.6-5.2 Cl 104.0 mmol/L 98.0-108.0 Anion Gap 13.6 eGFR - Descent 60.3 >60.0 eGFR -- Non- Descent 49.7 Low >60.0 230 Ua Routine 10/30/2017 [facility] Ua Glucose Negative REF TO DR ADDRESS ON ORDER FOR (440)- - Ua Protein Negative Ua Nitrite Negative Ua Leuko 1+ * Ua Blood 2+ * Ua Color Yellow Ua Ketones Negative Ua Clarity Clear Ua Specific Lorimor 1.015 1.003-1.030 Ua PH 7.5 5.0-7.5 Ua Bilirubin Negative Ua Urobilinogen 0.2 E.U./dL 0.0-1.0 Urine Microscopy 10/30/2017 [facility] Urine WBC 6- 10 /HPF + 0 - 5 [address] [place] [address] [phone] Urine RBC 3-5 /HPF + 0-2 Bacteria RARE /HPF Neg Crystals NEG /HPF Neg Epithelial Cells 2+ /HPF Neg Sperm NEG /HPF Neg Yeast NEG /HPF Neg UACast NEG /LPF Neg Urine Culture 10/30/2017 [facility] Urine Culture NO GROWTH: 9, [address] [place] [address] NOTE> [phone] Urine Cytology 10/30/2017 [facility] R31.29 N [address] [place] [address] [phone] Specimen Adequacy Satisfactory for <SEE NOTE> N 11 BodySite Voided - Clean C <SEE NOTE> N 12 Gross Description Received in a sp <SEE NOTE> N 13 Microscopic Description Rare neutrophils <SEE NOTE> N 14 Final Diagnosis NEGATIVE FOR HIG <SEE NOTE> N 15 CPTCode 68446 N PDF Report SEE IMAGE 230 Ua Routine 03/18/2017 [facility] Ua Glucose Negative REF TO DR ADDRESS ON ORDER FOR (315)- - Ua Protein Trace * Ua Nitrite Negative Ua Leuko 3+ * Ua Blood 1+ * Ua Color yellow Ua Ketones Negative Ua Clarity clear Ua Specifici Lorimor 1.010 1.003-1.030 Ua PH 6.0 5.0-7.5 Ua Bilirubin Negative Ua Urobilinogen 0.2 E.U./dL 0.0-1.0 Urine Cytology 03/18/2017 [facility] Clinical History R31.29 [address] [place], [place] [id number] [phone] Specimen Adequacy Satisfactory for <SEE NOTE> N 16 BodySite Voided - Clean C <SEE NOTE> N 17 Gross Description Received in a sp <SEE NOTE> N 18 Microscopic Description None. N Final Diagnosis NEGATIVE FOR HIG <SEE NOTE> N 19 CPTCode 67912 N PDF Report SEE IMAGE Laboratory test finding 12/26/2016 Outside Facility Urine Culture No Growth (315)- - Ua Glucose Neg Neg Ua Bilirubin Neg Neg Ua Specific Lorimor 1.005 1.005-1.030 Ua Blood Small High Neg Ua PH 6.5 5.0-8.0 Ua Protein Neg Neg Ua Urobilinogen 0.2 0.2-1.0 Ua Nitrite Neg Neg Ua Leuko Moderate High Neg Laboratory test 05/23/2016 Outside Facility Urine Culture No Growth finding (315)- - BUN & Creatinine 02/16/2014 [facility] BUN - Urea 17 5-23 ([facility]) [address] [place] [address] [phone] Creatinine Serum 1.1 0.5-1.4 #Ua Routine 02/10/2014 [facility] Ua Glucose Negative REF TO DR ADDRESS ON ORDER FOR (315)- - Ua Protein Negative Ua Nitrite Negative Ua Leuko Negative Ua Blood 1+ * Ua Color yellow Ua Ketones Negative Ua Clarity clear Ua Specific Lorimor 1.010 1.003-1.030 Ua PH 6.0 5.0-7.5 Ua Bilirubin Negative Ua Urobilinogen 0.2 E.U./dL 0.2-1 Urine Microscopic 12/10/2013 [facility] Urine WBC 0- 2 /HPF 0 - 5 [address] [place] [address] [phone] Urine RBC 0-2 /HPF 0-5 Bacteria NEG /HPF Neg Crystals NEG /HPF Neg Epithelial Cells 2+ /HPF Neg Sperm NEG /HPF Neg Yeast NEG /HPF Neg #Ua Routine 12/10/2013 [facility] Ua Glucose Negative REF TO DR ADDRESS ON ORDER FOR (315)- - Ua Protein Negative Ua Nitrite Negative Ua Leuko Negative Ua Blood Trace-lysed * Ua Color yellow Ua Ketones Negative Ua Clarity clear Ua Specific Lorimor 1.010 1.003-1.030 Ua PH 7.0 5.0-7.5 Ua Bilirubin Negative Ua Urobilinogen 0.2 E.U./dL 0.2-1 BUN & Creatinine 06/25/2013 Outside Facility BUN - Urea Nitrogen 15 7- 17 ([facility]) (315)- - Creatinine Serum 1.0 0.6-1.3 1 R39.15 R39.11 2 10,000 - 50,000 CFU/mL 3 Satisfactory for evaluation. 4 Voided - Clean Catch 5 Received in a specimen container, labeled with the patients name and , is Clear Yellow fluid consistent with urine, measuring approximately 60 ml. 6 NEGATIVE FOR HIGH-GRADE UROTHELIAL CARCINOMA. 7 R39.15 8 NO GROWTH: FINAL REPORT 9 R31.29 10 NO GROWTH: FINAL REPORT 11 Satisfactory for evaluation. 12 Voided - Clean Catch 13 Received in a specimen container, labeled with the patients name and , is Clear Yellow fluid consistent with urine, measuring approximately 60 ml. 14 Rare neutrophils present. 15 NEGATIVE FOR HIGH-GRADE UROTHELIAL CARCINOMA. 16 Satisfactory for evaluation. 17 Voided - Clean Catch 18 Received in a specimen container, labeled with the patients name and , is Cloudy Yellow fluid consistent with urine, measuring approximately 40 ml. 19 NEGATIVE FOR HIGH-GRADE UROTHELIAL CARCINOMA. Procedures Date Code Description Status 09/24/2018 47812 Bladder Scan, Post Voiding Residual Urine Completed 08/31/2018 52753 Bladder Scan, Post Voiding Residual Urine Completed 06/22/2018 43974 Catheterization, Single Spec Collection - Medicare Only Completed 12/12/2017 71344 Cystourethroscopy, With Biopsy Completed 12/11/2017 [id number] Colonoscopy Completed 11/27/2017 20112 Cystourethroscopy, Separate Procedure Completed 03/27/2017 97461 Cystourethroscopy, Separate Procedure Completed 10/13/2016 [id number] Mammogram Completed 12/27/2013 38961 Ultrasound Pelvic With Image Documentation Completed Encounters Type Date Location Provider Dx Diagnosis Office Visit 09/24/2018 [facility] Nic Thompson MD N39.41 Urge incontinence 11:00a [place] R35.1 Nocturia R33.9 Retention of urine, unspecified M62.838 Other muscle spasm N81.11 Cystocele, midline Office Visit 08/31/2018 2:15p [place]/[facility]ela.M.Kathi Morales P R39.15 [facility] MD Marcelo urination R39.11 Hesitancy of micturition Office Visit 06/22/2018 [place]/Marcela.MTabithaPTabitha Morales P R39.15 U[facility]ency of 11:05a Marcus Robertson MD urination Office Visit 12/18/2017 [place]/MikiMJoey Morales P R31.0 Gross hematuria 4:10p Marcus Robertson MD Office Visit 10/30/2017 [place]/Sarahi Vyas R31.29 Other microscopic 2:00p Marcus Robertson MD hematuria Office Visit 03/18/2017 [place]/MikiMJoey Lacey, R31.29 Other microscopic 10:00a Urology Betsey Del Rosario M.D. hematuria R93.41 Abn radlgc find on dx imaging renal pelv, ureter, or blddr R39.11 Hesitancy of micturition Office Visit 05/26/2014 [place]/Betsey Ge 599.72 Microscopic 11:50a Marcus Del Rosario M.D. Hematuria 591 Hydronephrosis Office Visit 02/10/2014 [facility]/Betsey Ge 599.72 Microscopic 11:20a Marcus Del Rosario M.D. Hematuria 591 Hydronephrosis Office Visit 12/10/2013 [facility]/Brandee Mejia, 599.72 Microscopic 9:30a Urology [employer]CHITECT/PA Hematuria Plan of Treatment Future Appointment(s):03/26/2019 1:15 pm - Nic Thompson MD at [facility] Gyctsbt08/13/2018 - Nic Thompson MDN39.41 Urge eadyyvxnstksX69.1 AytifxbjE69.9 Retention of urine, jejgmfdidasI46.838 Other muscle etypiO34.11 Cystocele, midlineAllComments:Marbella is intermittently straining to empty, which I suspect is due to pelvic floor dysfunction. It might also be due to her cystocele, although she denies any sensation of a vaginal bulge. I would favor treating her pelvic floor dysfunction rather than subjecting her to surgery. We could also trial a pessary and see if this improves her emptying. She would like to try physical therapy if she is able to afford it. We will refer to [facility] for physical therapy to start in the spring when the weather improves.I did not demonstrate any leakage on exam. If she wished to proceed with a sling, I would needto perform urodynamics first.Approximately 25 minutes were spent in rklj-vb-[id number] time, greater than 50 % counseling and coordinating careFollow up:Refer to [facility] PT, start in December or January Follow-up with me in 6 months
[2018-10-01 11:18] VITALS: BP 116/65
--- NOTE | 2018-10-01 12:05 | UC ---
Complaint Female HPI - HPI Summary HPI Summary: 63-year-old female presents with onset of dysuria, frequency, and urgency this morning. Denies fever, chills, abdominal pain, back or flank pain, nausea, vomiting, or hematuria. - History Of Current Complaint Chief Complaint: UCGU Stated Complaint: URINARY Time Seen by Provider: 10/01/18 11:31 Hx Obtained From: Patient Hx Last Menstrual Period: n/a Pain Intensity: 8 - Allergies/Home Medications Allergies/Adverse Reactions: Allergies Allergy/AdvReac Type Severity Reaction Status Date / Time buspirone [From BuSpar] Allergy Unknown Verified 10/01/18 11:10 Reaction Details cephalexin Allergy Unknown Verified 10/01/18 11:10 Reaction Details epinephrine Allergy Shortness Verified 10/01/18 11:10 of Breath procaine Allergy Shortness Verified 10/01/18 11:10 of Breath Tetanus Vaccines and Toxoid Allergy Swelling Verified 10/01/18 11:10 antihistamines Allergy See Comment Uncoded 10/01/18 11:10 Home Medications: Home Medications Potassium 99 mg PO DAILY 10/01/18 [History Confirmed 10/01/18] Primidone TAB(*) [Mysoline TAB(*)] 50 mg PO BEDTIME 10/01/18 [History Confirmed 10/01/18] PMH/Surg Hx/FS Hx/Imm Hx Previously Healthy: Yes Endocrine History: Hypothyroidism Cardiovascular History: Hypertension Psychological History: Anxiety, Bipolar Disorder - Surgical History Surgical History: Yes Surgery Procedure, Year, and Place: LENORE KNEE REPLACEMENT, TONSILLECTOMY. D&C. L carpal tunnel surgery. cataracts - Family History Known Family History: Positive: Cardiac Disease, Hypertension - Social History Occupation: Works From/At Home Lives: With Family Alcohol Use: None Substance Use Type: None Smoking Status (MU): Current Every Day Smoker Type: eCigarettes Amount Used/How Often: daily Length of Time of Smoking/Using Tobacco: 35+ years Have You Smoked in the Last Year: Yes Household Exposure Type: Cigarettes - Immunization History Most Recent Influenza Vaccination: 2012 Most Recent Tetanus Shot: ALLERGIC Review of Systems All Other Systems Reviewed And Are Negative: Yes Constitutional: Negative: Fever, Chills Gastrointestinal: Negative: Abdominal Pain, Vomiting, Nausea Genitourinary: Positive: Dysuria, Frequency, Urgency. Negative: Hematuria Is Patient Immunocompromised?: No Physical Exam - Summary Physical Exam Summary: GENERAL APPEARANCE: Well developed, well nourished, alert and cooperative, and appears to be in no acute distress. CARDIAC: Normal S1 and S2. No S3, S4 or murmurs. Rhythm is regular. There is no peripheral edema, cyanosis or pallor. Extremities are warm and well perfused. Capillary refill is less than 2 seconds. LUNGS: Clear to auscultation and percussion without rales, rhonchi, wheezing or diminished breath sounds. ABDOMEN: Positive bowel sounds. Soft, nondistended. Mild suprapubic tenderness without guarding or rebound. No masses or hepatosplenomegally. No CVA tenderness. MUSKULOSKELETAL: ROM intact to all extremities. No joint erythema or tenderness. Normal muscular development. Normal gait. SKIN: Skin normal color, texture and turgor with no lesions or eruptions. Triage Information Reviewed: Yes Vital Signs: Initial Vital Signs Temp 98.7 F 10/01/18 11:14 Pulse 64 10/01/18 11:14 Resp 18 10/01/18 11:14 BP 116/65 10/01/18 11:14 Pulse Ox 98 10/01/18 11:14 Vital Signs Reviewed: Yes Diagnostics - Laboratory Diagnostic Studies Completed/Ordered: POC UA 1+ protein, 2+ blood, positive nitrite, 3+ leukocyte esterase. Complaint Female Dx - Course Course Of Treatment: 63-year-old female presents with onset of dysuria, frequency, and urgency this morning. Denies fever, chills, abdominal pain, back or flank pain, nausea, vomiting, or hematuria. Afebrile. Vital signs stable. Exam unremarkable except for some mild suprapubic tenderness. POC UA showed 1+ protein, 2+ blood, positive nitrite, and 3+ leukocyte esterase. Will treat for acute urinary tract infection with Macrobid twice a day 5 days as well as Pyridium 1 tab every 8 hours for the next 2 days for discomfort. She is to follow-up with her primary care provider in 3 days if symptoms persist. Warning symptoms were reviewed with the patient. Verbalizes understanding and agrees with plan of care. - Differential Dx/Diagnosis Provider Diagnosis: UTI (urinary tract infection) Discharge - Sign-Out/Discharge Documenting (check all that apply): Patient Departure All imaging exams completed and their final reports reviewed: No Studies - Discharge Plan Condition: Stable Disposition: HOME Prescriptions: Nitrofurantoin Monohyd/M-Cryst [Macrobid 100 mg Capsule] 100 mg PO BID #10 cap Phenazopyridine TAB* [Pyridium 100 mg TAB*] 100 mg PO TID #6 tab Patient Education Materials: Urinary Tract Infection in Women (ED) Referrals: Shruthi Zimmerman MD [Primary Care Provider] - 3 Days (If no improvement in symptoms.) Additional Instructions: Your urine test in the clinic today was suggestive of a urinary tract infection. We will send the urine for culture to see what bacteria grow out and to make sure that the antibiotic you were prescribed is effective against the bacteria. It typically takes 48-72 hours to get these results. Start Macrobid 1 tab twice a day for 5 days. Take Pyridium 1 tablet every 8 hours for the next 2 days to help with the discomfort. Be aware that this medication will cause her urine to turn and orange color. Make sure you're drinking plenty of fluids. Make sure you are using the bathroom frequently and emptying her bladder completely each time. Wipe from front to back to avoid introducing bacteria into the urinary tract. Follow-up with your primary care provider in 3 days if your symptoms persist. Seek immediate medical attention in the emergency room if you develop a fever greater than 100.5 F, have severe abdominal pain, persistent vomiting, or any worsening of symptoms. - Billing Disposition and Condition Condition: STABLE Disposition: Home
--- NOTE | 2018-10-04 07:34 | UC ---
- Progress Note Progress Note: RN to call pt. Cx + E. Coli, details in [facility]. Encourage f/u PCP in the next couple weeks to ensure sx resolved and hematuria resolved. Seek medical attention for worse or new problems in the meantime. Course/Dx - Diagnoses Provider Diagnoses: UTI (urinary tract infection) Discharge - Sign-Out/Discharge Documenting (check all that apply): Post-Discharge Follow Up All imaging exams completed and their final reports reviewed: No Studies - Discharge Plan Condition: Stable Disposition: HOME Prescriptions: Nitrofurantoin Monohyd/M-Cryst [Macrobid 100 mg Capsule] 100 mg PO BID #10 cap Phenazopyridine TAB* [Pyridium 100 mg TAB*] 100 mg PO TID #6 tab Patient Education Materials: Urinary Tract Infection in Women (ED) Referrals: Shruthi Zimmerman MD [Primary Care Provider] - 3 Days (If no improvement in symptoms.) Additional Instructions: Your urine test in the clinic today was suggestive of a urinary tract infection. We will send the urine for culture to see what bacteria grow out and to make sure that the antibiotic you were prescribed is effective against the bacteria. It typically takes 48-72 hours to get these results. Start Macrobid 1 tab twice a day for 5 days. Take Pyridium 1 tablet every 8 hours for the next 2 days to help with the discomfort. Be aware that this medication will cause her urine to turn and orange color. Make sure you're drinking plenty of fluids. Make sure you are using the bathroom frequently and emptying her bladder completely each time. Wipe from front to back to avoid introducing bacteria into the urinary tract. Follow-up with your primary care provider in 3 days if your symptoms persist. Seek immediate medical attention in the emergency room if you develop a fever greater than 100.5 F, have severe abdominal pain, persistent vomiting, or any worsening of symptoms. - Billing Disposition and Condition Condition: STABLE Disposition: Home
== END 2018-10-01 12:15 | disposition home or self-care (01) ==
LOC: UCCORT 10:24
DX: N39.0 Urinary tract infection, site not specified (principal); B96.20 Unspecified Escherichia coli [E. coli] as the cause of diseases classified elsewhere; Z88.1 Allergy status to other antibiotic agents; Z88.8 Allergy status to other drugs, medicaments and biological substances; Z88.7 Allergy status to serum and vaccine; I10 Essential (primary) hypertension; F17.210 Nicotine dependence, cigarettes, uncomplicated
CPT/HCPCS: 81003; 87077; 87086; 87186; 99212; G0463

== ENCOUNTER 2019-02-04 14:08 | Emergency (ER) | payer MEDICARE, OTHER ==
--- OUTSIDE RECORDS SUMMARY | 2019-02-04 14:21 | XMS REPORT | Continuity of Care Document ---
:1955 External Reference #:[id number] Author Name Zaira Mike Care Team Providers Name Role Phone Corrie Johnson M.D. Care Team Information Rn Telephonic Unavailable Shruthi Zimmerman MD Primary Care Physician Unavailable Payers Date Identification Numbers Payment Provider Subscriber Policy Number: [id number] Medicare Marbella Fraga PayID: [id number] [address] [place] [address] Policy Number: [id number] Lifetime Benefits [facility] Eddie Fraga PayID: [id number] [address] [address] [place] [address] Advance Directives Description No Information Available Problems Description No Information Family History Date Family Member(s) Observation Comments Father Heart Disease Mother Alzheimer's Disease First Brother Heart Disease Social History Type Date Description Comments Sex Female Cigarette Use E-Cigarette ETOH Use Denies alcohol use Recreational Drug Use Denies Drug Use Allergies, Adverse Reactions, Alerts Date Description Reaction Status Severity Comments 04/25/2016 Epinephrine Active 04/25/2016 Antihistamines Active Medications Medication Date Status Form Strength Qnty SIG Indications Ordering Provider Clonazepam 00/00/ Active Tablets Unknown 0000 Lamictal / Active Tablets Unknown 0000 Cymbalta / Active Caps DR by mouth Unknown 0000 Part twice a day [place] 00/00/ Active Capsules Unknown Carbonate 0000 Omeprazole 0000/ Active Capsules 40mg [address] mouth every day Gabapentin 00/00/ Active Capsules 1 by Unknown 0000 mouth three times a day Krill Oil 00/00/ Active Capsules Unknown 0000 Aspirin 00/00/ Active Tablets DR 81mg 1 by Unknown 0000 mouth every day Multivitamins 00/00/ Active Capsules Unknown 0000 Crestor 00/ Active Tablets 1 by Unknown 0000 mouth every day Nortriptyline 00/ Active Capsules Unknown HCL 0000 Primidone / Active Tablets Unknown 0000 Rosuvastatin / Active Tablets 20mg every Unknown Calcium 0000 evening Sucralfate / Active Tablets 1gm Unknown 0000 Azithromycin 10/17/ Hx Tablets 250mg 6tabs 2 pills x [place], 2017 - 1 day [place], 11/03/ 1 M.D. 2019 every day for 4 days Immunizations Description No Information Available Vital Signs Date Vital Result Comment 01/05/2019 2:35pm Weight 208.00 lb Height 66.5 inches 5'6.50" BMI (Body Mass Index) 33.1 kg/m2 BP Systolic 132 mmHg BP Diastolic 79 mmHg Heart Rate 83 /min O2 % BldC Oximetry 98 % Body Temperature 97.9 F Pain Level 0 11/03/2018 2:03pm Weight 214.00 lb Height 66.5 inches 5'6.50" BMI (Body Mass Index) 34.0 kg/m2 BP Systolic 110 mmHg BP Diastolic 73 mmHg Heart Rate 73 /min O2 % BldC Oximetry 97 % Body Temperature 98.0 F [place] Score 18 Neck Circumference in inches 16 Pain Level 0 10/17/2016 11:39am Weight 220.00 lb Height 66.5 inches 5'6.50" BMI (Body Mass Index) 35.0 kg/m2 BP Systolic 138 mmHg BP Diastolic 80 mmHg Heart Rate 84 /min O2 % BldC Oximetry 97 % Body Temperature 97.3 F [place] Score 12 Pain Level 0 05/28/2016 10:45am Weight 216.00 lb Height 66.5 inches 5'6.50" BMI (Body Mass Index) 34.3 kg/m2 Body Temperature 96.3 F 04/25/2016 5:30pm Weight 217.00 lb Height 66.5 inches 5'6.50" BMI (Body Mass Index) 34.5 kg/m2 BP Systolic 150 mmHg BP Diastolic 88 mmHg Heart Rate 81 /min O2 % BldC Oximetry 94 % Body Temperature 98.3 F Neck Circumference in inches 16 Results Description No Information Available Procedures Date Code Description Status 06/30/2016 72561 Sleep Stage 4 Or More Cpap Titra Completed 05/12/2016 22657 Sleep Staging 4Or More Para Completed 04/25/2016 82687 Fiberoptic Laryngoscopy,Diag. Completed Encounters Type Date Location Provider Dx Diagnosis Office Visit 11/03/2018 Main Office Bev Garnett G47.33 Obstructive sleep 2:00p [employer] apnea (adult) (pediatric) R06.83 Snoring G47.9 Sleep disorder, unspecified Office Visit 10/17/2016 11:30a Main Office Bev Medrano G47.33 Obstructive sleep LUIS FELIPE Garnett apnea (adult) (pediatric) J01.90 Acute sinusitis, unspecified Office Visit 05/28/2016 10:45a Main Office [place] G47.33 Obstructive sleep M.D. apnea (adult) (pediatric) K21.9 Gastro-esophageal reflux disease without esophagitis E66.9 Obesity, unspecified Office Visit 04/25/2016 5:15p Main Office [place], K21.9 Gastro- esophageal reflux M.D. disease without esophagitis J34.2 Deviated nasal septum E66.9 Obesity, unspecified R06.83 Snoring G47.9 Sleep disorder, unspecified R51 Headache Plan of Treatment No Information Available
--- OUTSIDE RECORDS SUMMARY | 2019-02-04 14:21 | XMS REPORT | Continuity of Care Document ---
:1955 External Reference #:[id number] Author Name Bev Garnett NP Address [address] [place] [address] Care Team Providers Name Role Phone Corrie Johnson M.D. Care Team Information Hub Cutter Unavailable Shruthi Zimmerman MD Primary Care Physician Unavailable Payers Date Identification Numbers Payment Provider Subscriber Policy Number: [id number] Medicare Marbella Fraga PayID: [id number] [address] [place] [address] Policy Number: [id number] Lifetime Benefits [place] Eddie Fraga PayID: [id number] [address] [address] [place] [address] Advance Directives Description No Information Available Problems [...] Strength Qnty SIG Indications Ordering Provider Clonazepam / Active Tablets Unknown 0000 Lamictal / Active Tablets Unknown 0000 Cymbalta / Active Caps DR by mouth Unknown 0000 Part twice a day [place] / Active Capsules Unknown Carbonate 0000 Omeprazole / Active Capsules 40mg [address] mouth every day Gabapentin 00/00/ Active Capsules 1 by Unknown 0000 mouth three times a day Krill Oil / Active Capsules Unknown 0000 Aspirin / Active Tablets DR 81mg 1 by Unknown 0000 mouth every day Multivitamins 00/00/ Active Capsules Unknown 0000 Crestor 0000/ Active Tablets 1 by Unknown 0000 mouth every day Nortriptyline 0000/ Active Capsules Unknown HCL 0000 Primidone 00/ Active Tablets Unknown 0000 Rosuvastatin 00/ Active Tablets 20mg every Unknown Calcium 0000 evening Sucralfate 0000/ Active Tablets 1gm Unknown 0000 Azithromycin 10/17/ [...] Oximetry 97 % Body Temperature 98.0 F [place] Score 18 Neck Circumference in inches 16 Pain Level 0 10/17/2016 11:39am Weight 220.00 lb Height 66.5 inches 5'6.50" BMI (Body Mass Index) 35.0 kg/m2 BP Systolic 138 mmHg BP Diastolic 80 mmHg Heart Rate 84 /min O2 % BldC Oximetry 97 % Body Temperature 97.3 F [place] Score 12 Pain Level 0 05/28/2016 10:45am [...] Information Available Procedures Date Code Description Status 01/05/2019 38008 Nasal Endoscopy, Diag. Completed 12/20/2018 74686 Sleep Staging 4Or More Para Completed 06/30/2016 50299 Sleep Stage 4 Or More Cpap Titra Completed 05/12/2016 96561 Sleep Staging 4Or More Para Completed 04/25/2016 23553 Fiberoptic Laryngoscopy,Diag. Completed Encounters Type Date Location Provider Dx Diagnosis Office Visit 01/05/2019 Main Office Bev Garnett G47.33 Obstructive sleep 2:30p [employer] apnea (adult) (pediatric) Office Visit 11/03/2018 Main Office Bev Garnett G47.33 Obstructive sleep 2:00p [employer] apnea (adult) (pediatric) R06.83 Snoring G47.9 Sleep [...] disorder, unspecified R51 Headache Plan of Treatment Future Appointment(s):01/17/2019 7:45 pm - Sleep Lab - Marcio Gilman MD at [facility]11/03/2018 - Bev Garnett NPG47.33 Obstructive sleep apnea (adult ) (pediatric)R06.83 SvghfacN93.9 Sleep disorder, unspecified
--- OUTSIDE RECORDS SUMMARY | 2019-02-04 14:21 | XMS REPORT | Continuity of Care Document ---
:1955 External Reference #:[id number] Author Name Waqar Prieto M.D., [facility] Address [address] [place] [address] Care Team Providers Name Role Phone Shruthi Zimmerman MD Care Team Information Internet Marketing Strategist Unavailable Shruthi Zimmerman MD Primary Care Physician Unavailable Payers Date Identification Numbers Payment Provider Subscriber Policy Number: [id number] Medicare Marbella Fraga PayID: [id number] [address] [place] [address] Policy Number: [id number] Lifetime Benefit Solution Eddie Fraga PayID: [id number] [address] [address] [place] [address] Advance Directives Description No Information Available Problems Date Description Provider Status Onset: 12/29/2013 Mixed hyperlipidemia Gisselle White, [facility] Active Family History Date Family Member(s) Observation Comments General Heart Disease General Kidney Disease General Fibromyalgia General Cancer General Parkinson's Disease Onset: (age 61 Years) Father CAD Mother Pacemaker First Sister Atrial Fibrillation Onset: (age 69 Years) First Sister Heart Attack Social History Type Date Description Comments Sex Unknown Lives With Diet Patient follows no dietary restrictions Occupation Disabled ADL's/IADL's Independent with all ADL's Tobacco Use Start: Unknown End: Quit but uses the E cig Unknown Smoking Status Reviewed: 11/24/18 Quit but uses the E cig ETOH Use Denies alcohol use Recreational Drug Use Denies Drug Use Allergies, Adverse Reactions, Alerts Date Description Reaction Status Severity Comments 12/29/2013 Epinephrine Active sob, feeling of impending doom Medications Medication Date Status Form Strength Qnty SIG Indications Ordering Provider Gabapentin Active Capsules 300mg 42cap 1 in am , Unknown 00 s 1 in afternoon and 2 at night Levothyroxine Active Tablets 125mcg 1 po qd Unknown Sodium 00 Hydrochlorothiazi Active Tablets 12.5mg 90tab 1 po qd Unknown de 00 s Omeprazole Active Capsules 40mg 90cap 1 po in Unknown 00 DR s am , 1po in pm Lamotrigine Active Tablets 100mg 2 po qd Unknown [address] 30mg 2 po qd Unknown 00 Part [place] Carbonate Active Capsules 300mg 1 po in Unknown 00 am , 1 po in pm Clonazepam Active Tablets 1mg 1 in am , Unknown 00 1 in pm Aspir-Low Active Tablets 81mg daily Unknown 00 DR Primidone Active Tablets 50mg 1 by Unknown 00 mouth every day Potassium Active Tablets 20Meq 1 by Unknown Chloride Simi ER 00 ER mouth every day Sucralfate Active Tablets 1gm 4 times Unknown 00 daily Rosuvastatin Active Tablets 10mg take 1 Unknown Calcium 00 tablet by mouth every evening Tramadol HCL 06/30/20 Hx Tablets 50mg 40tab 1- tablet [place], 14 - s q hrs Eddie Santana, Unknown prn for LASHAWN NESBITT pain Baclofen 06/30/20 Hx Tablets 10mg 30tab 1 po q 8 [place], 14 - s hrs as Eddie Santana, Unknown needed LASHAWN NESBITT muscle spasms Meloxicam 12/30/19 Hx Tablets 15mg 30tab 1 po q [place], 14 - s day c Eddie Santana, 12/30/19 food LASHAWN NESBITT 14 Nabumetone 12/30/19 Hx Tablets 750mg 60tab take 1 [place], 14 - s tablet by Eddie Santana, Unknown mouth 2 , LASHAWN times a day with food Tramadol HCL 12/30/19 Hx Tablets 50mg 50tab 1-2 [place], 14 - s tablets q Eddie Santana, 06/29/20 4 hrs prn LASHAWN NESBITT 14 for pain Baclofen 12/30/19 Hx Tablets 10mg 30tab 1 po q 8 [place], 14 - s hrs as Eddie Santana, 06/29/20 needed , FACS 14 muscle spasms Ibuprofen Hx Tablets 200mg 50tab prn Unknown 00 - s 12/30/19 14 Calcium 600 + D Hx Tablets 600-400mg daily Unknown 00 - -Unit Unknown Medications Administered in Office Medication Date Status Form Strength Qnty SIG Indications Ordering Provider Methylprednisolone 02/14 Administered Injection Cindy Gisselle (Depomedrol) 80mg S., RPA injection Immunizations Description No Information Available Vital Signs Date Vital Result Comment 01/13/2019 1:56pm BP Systolic Sitting Left Arm 118 mmHg BP Diastolic Sitting Left Arm 76 mmHg Heart Rate 69 /min Respiratory Rate 18 /min Height 66 inches 5'6" Weight 211.00 lb BMI (Body Mass Index) 34.1 kg/m2 BSA (Body Surface Area) 2.05 m2 [place] body weight in kilograms 59 kg O2 % BldC Oximetry 98 % [place] 11/24/2018 10:00am BP Systolic Sitting Left Arm 130 mmHg BP Diastolic Sitting Left Arm 76 mmHg Heart Rate 67 /min Respiratory Rate 16 /min Height 66 inches 5'6" Weight 207.00 lb BMI (Body Mass Index) 33.4 kg/m2 BSA (Body Surface Area) 2.03 m2 [place] body weight in kilograms 59 kg O2 Saturation Level with Exercise 95 % 12/29/2013 1:32pm BP Systolic Sitting Right Arm 124 mmHg BP Diastolic Sitting Right Arm 80 mmHg Height 66 inches 5'6" Weight 230.00 lb BMI (Body Mass Index) 37.1 kg/m2 BSA (Body Surface Area) 2.12 m2 Results Test Date Facility Test Result H/L Range Note Estimated N2N/CCD Import Estimated 49 >60 glomerular 019 glomerular filtration rate filtration rate (GFR) non-Afr (GFR) non- GFR/Bsa pred.black N2N/CCD Import GFR/Bsa pred.black 59 >60 SerPl MDRD-ArVRat 019 SerPl MDRD-ArVRat Hct VFr Bld Auto N2N/CCD Import Hct VFr Bld Auto 33.2 #L 36.0- 46.1 019 Serum or plasma N2N/CCD Import Serum or plasma 6 Low 8-16 anion gap 019 anion gap Serum or plasma N2N/CCD Import Serum or plasma 8.6 8.5-10.1 calcium measurement 019 calcium (mass/volume) measurement (mass/volume) Serum or plasma N2N/CCD Import Serum or plasma 107 98-107 chloride 019 chloride measurement measurement Serum or plasma N2N/CCD Import Serum or plasma 1.2 0.6-1.3 creatinine 019 creatinine measurement measurement (mass/volum (mass/volume) Serum or plasma N2N/CCD Import Serum or plasma 0.74 Low 0.76- 1.46 free thyroxine 019 free thyroxine (FT4) measurement ( (FT4) measurement (mass/volume) Serum or plasma N2N/CCD Import Serum or plasma 1.66 Low 2.18- 3.98 free 019 free triiodothyronine triiodothyronine (T3) measure (T3) measurement (mass/volume) Serum or plasma N2N/CCD Import Serum or plasma 101 74-106 glucose measurement 019 glucose (mass/volume) measurement (mass/volume) Serum or plasma N2N/CCD Import Serum or plasma 3.4 Low 3.5-5.1 potassium 019 potassium measurement measurement Serum or plasma N2N/CCD Import Serum or plasma 8.94 High 0.30- 4.20 thyrotropin 019 thyrotropin measurement measurement (units/vol (units/volume) Serum or plasma N2N/CCD Import Serum or plasma 12 7-18 urea nitrogen 019 urea nitrogen measurement measurement (mass/vo (mass/volume) Serum or plasma N2N/CCD Import Serum or plasma 10.0 urea 019 urea nitrogen/creatinine nitrogen/creatinin mass rati e mass ratio Sodium SerPl-sCnc N2N/CCD Import Sodium SerPl-sCnc 141 136-145 019 Absolute neutrophil N2N/CCD Import Absolute 3.26 1.8-7.0 count 019 neutrophil count Automated basophil N2N/CCD Import Automated basophil 1.1 0.0- 1.1 % 019 % Automated blood N2N/CCD Import Automated blood 0.09 0.0-0.1 basophil count 019 basophil count (number/volume) (number/volume) Automated blood N2N/CCD Import Automated blood 0.37 0.0-0.5 eosinophil count 019 eosinophil count Automated blood N2N/CCD Import Automated blood 8.0 3.1-10.7 leukocyte count 019 leukocyte count (number/volume) (number/volume) Automated blood N2N/CCD Import Automated blood 3.65 1.0-4.0 lymphocyte count 019 lymphocyte count (number/volume) (number/volume) Automated blood N2N/CCD Import Automated blood 45.7 High 20.0- 42.0 lymphocytes/100 019 lymphocytes/100 leukocytes leukocytes Automated blood N2N/CCD Import Automated blood 41.0 40.4-72.8 neutrophils/100 019 neutrophils/100 leukocytes leukocytes Automated blood N2N/CCD Import Automated blood 288 155-360 platelet count 019 platelet count Automated blood N2N/CCD Import Automated blood 10.1 8.9-12.4 platelet mean 019 platelet mean volume measurement volume measurement Co2 SerPl-sCnc N2N/CCD Import Co2 SerPl-sCnc 28 21-32 019 Blood monocytes N2N/CCD Import Blood monocytes 0.61 0.3-0.9 automated count 019 automated count (number/volume) (number/volume) Blood hemoglobin N2N/CCD Import Blood hemoglobin 11.1 Low 11.6- 15.8 measurement 019 measurement (mass/volume) (mass/volume) Blood erythrocytes N2N/CCD Import Blood erythrocytes 3.71 Low 3.90-5.40 automated count 019 automated count (number/volume) (number/volume) Automated monocyte N2N/CCD Import Automated monocyte 7.6 4.3- 13.2 % 019 % Automated N2N/CCD Import Automated 4.6 0.0-6.6 eosinophil % 019 eosinophil % Automated N2N/CCD Import Automated 41.6 36-47 erythrocyte 019 erythrocyte distribution width distribution width Automated N2N/CCD Import Automated 13.1 11.7-14.4 erythrocyte 019 erythrocyte distribution width distribution width ratio ratio Automated N2N/CCD Import Automated 29.9 25.9-32.7 erythrocyte mean 019 erythrocyte mean corpuscular corpuscular hemoglobin hemoglobin (mass per erythrocyte) Automated N2N/CCD Import Automated 33.4 30.8-34.3 erythrocyte mean 019 erythrocyte mean corpuscular corpuscular hemoglobin hemoglobin concentration measurement (mass/volume) Automated N2N/CCD Import Automated 89.5 80.9-99.0 erythrocyte mean 019 erythrocyte mean corpuscular volume corpuscular volume (MCV (MCV) measurement Bacteria detection N2N/CCD Import Bacteria detection Very Few None Seen in urine sediment 019 in urine sediment by light micr by light microscopy Epithelial cells N2N/CCD Import Epithelial cells Moderate None Seen detection in urine 019 detection in urine sediment by li sediment by light microscopy Specific gravity of N2N/CCD Import Specific gravity 1.010 1.010- 1.03 Urine by Automated 019 of Urine by 0 test strip Automated test strip Urine appearance N2N/CCD Import Urine appearance Clear Clear determination 019 determination Unloinc N2N/CCD Import Unloinc Diff 019 Ordered Serum or plasma N2N/CCD Import Serum or plasma 0.65 0.60-1.20 lithium measurement 019 lithium (moles/volume) measurement (moles/volume) Manual blood N2N/CCD Import Manual blood 76 High 33-73 segmented 019 segmented neutrophils/100 neutrophils/100 leukocytes leukocytes Manual blood N2N/CCD Import Manual blood 4 0-10 monocytes/100 019 monocytes/100 leukocytes leukocytes Manual blood N2N/CCD Import Manual blood 15 Low 20-42 lymphocytes/100 019 lymphocytes/100 leukocytes leukocytes Manual blood band N2N/CCD Import Manual blood band 4 0-8 neutrophils 019 neutrophils form/100 leukocytes form/100 leukocytes Eosinophil % N2N/CCD Import Eosinophil % 1 0-5 019 Urine color N2N/CCD Import Urine color Yellow Yellow determination 019 determination Urine glucose N2N/CCD Import Urine glucose Negative Negative measurement by 019 measurement by automated test automated test strip strip (mass/volume) Urine hemoglobin N2N/CCD Import Urine hemoglobin Small High Negative detection by 019 detection by automated test automated test strip strip Urine ketones N2N/CCD Import Urine ketones Negative Negative measurement by 019 measurement by automated test automated test strip strip (mass/volume) Urine leukocyte N2N/CCD Import Urine leukocyte Small High Negative esterase detection 019 esterase detection by automated te by automated test strip Urine nitrite N2N/CCD Import Urine nitrite Negative Negative detection by 019 detection by automated test automated test strip strip Urine pH N2N/CCD Import Urine pH 7.0 6.5-7.5 measurement by 019 measurement by automated test automated test strip strip Urine protein N2N/CCD Import Urine protein Negative Negative measurement by 019 measurement by automated test automated test strip strip (mass/volume) Urine total N2N/CCD Import Urine total Negative Negative bilirubin detection 019 bilirubin by automated test detection by automated test strip Urine urobilinogen N2N/CCD Import Urine urobilinogen 0.2 0.2- 1.0 measurement 019 measurement (units/volume) by t (units/volume) by test strip * Miscellaneous N2N/CCD Import * Miscellaneous Test(s) studies (set) 019 studies (set) added Blood platelet N2N/CCD Import Blood platelet Normal adequacy detection 019 adequacy detection by light microsc by light microscopy Blood total cell N2N/CCD Import Blood total cell 100 count 019 count Serum or plasma N2N/CCD Import Serum or plasma 5.9 Low 30.0- 100.0 25-hydroxyvitamin D 019 25-hydroxyvitamin measurement (m D measurement (mass/volume) Serum or plasma N2N/CCD Import Serum or plasma 65 15-65 intact parathyroid 019 intact parathyroid hormone measure hormone measurement (mass/volume) Serum or plasma N2N/CCD Import Serum or plasma 5.4 4.5-5.6 ionized calcium 019 ionized calcium measurement by ion measurement by ion-selective membrane electrode ([place]) (mass/volume) Bacterial urine N2N/CCD Import Bacterial urine Organism: culture 018 culture Urethral Adenike Procedures Date Code Description Status 01/01/2019 98318 Event Monitor Inter/Review Only Completed 12/08/2018 64500 Stress Test Interpre And Report Only Completed 12/08/2018 34504 Stress Test Physician Super Only Completed 12/08/2018 88134 Myocardial Imaging Tomographic Multiple Study AT Rest Or Completed Stress 11/24/2018 68530 EKG-Tracing And Report Completed 11/09/2018 43226 Echocardiogram Complete Completed 02/14/2014 60469 Radiology, Shoulder: Two Views (Sso) Completed 02/14/2014 93104 Radiology, Shoulder: Two Views (Sso) Completed 02/14/2014 77044 xray spine cervical min 4 views Completed 02/14/2014 55899 xray spine cervical min 4 views Completed 02/14/2014 86004 Asp./Injection major joint Completed 12/29/2013 33472 Radiology, L-S Spine Complete Completed 12/29/2013 02832 Radiology, L-S Spine Complete Completed Encounters Type Date Location Provider Dx Diagnosis Office Visit 01/13/2019 Cardiology Office Marium Foley R06.02 Shortness of 2:00p B., PA breath R94.31 Abnormal electrocardiogram [ECG] [EKG] R55 Syncope and collapse E78.5 Hyperlipidemia, unspecified Office Visit 11/24/2018 10:00a Cardiology Office Marium Foley R55 Syncope and B., PA collapse R94.31 Abnormal electrocardiogram [ECG] [EKG] R06.02 Shortness of breath E78.5 Hyperlipidemia, unspecified Office Visit 02/27/2015 [place], 578.9 Hemorrhage 11:35a Buck Gandhi M.D. [facility] Tract Unspec 569.3 Hemorrhage Rectum & Anus Office Visit 08/10/2014 9:15a Orthopaedic Office Gisselle White 719.41 Pain Joint S., RPAC Shoulder Region 726.10 Bursae & Tendon Disorders Shoulder Region Unspec 723.1 Cervicalgia Office Visit 06/30/2014 9:00a Orthopaedic Office Gisselle White 719.41 Pain Joint S., RPAC Shoulder Region 726.10 Bursae & Tendon Disorders Shoulder Region Unspec 723.1 Cervicalgia Office Visit 03/23/2014 10:45a Orthopaedic Office Gisselle White 719.41 Pain Joint S., RPAC Shoulder Region 726.10 Bursae & Tendon Disorders Shoulder Region Unspec 723.1 Cervicalgia Office Visit 02/14/2014 10:15a Orthopaedic Office Gisselle White 719.41 Pain Joint S., RPAC Shoulder Region 726.10 Bursae & Tendon Disorders Shoulder Region Unspec 723.1 Cervicalgia Office Visit 02/03/2014 10:30a Orthopaedic Office Gisselle White 719.45 Pain Joint S., RPAC Pelvic Region & Thigh 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 Recommend regular physical activity and gradual weight loss.R94.31 Abnormal electrocardiogram [ECG] [EKG]Comments:Monitor.R55 Syncope and collapseComments:No further cardiac testing indicated at this time. She will call with reoccurrence of symptoms.E78.5 Hyperlipidemia, unspecifiedComments:Followed by PCP.AllFollow up:6 months
[2019-02-04] MEDS ORDERED: Tetan/Diph/Pertus SYR(Tdap)* 0.5 ML SYR(BOOSTRIX) use SYR IM ONE (14:50)
--- NOTE | 2019-02-04 14:56 | UC ---
Skin Complaint HPI - HPI Summary HPI Summary: patient stepped on a nail. small puncture to the right great toe, not deep. - History of Current Complaint Chief Complaint: UCLowerExtremity Time Seen by Provider: 02/04/19 14:35 Stated Complaint: STEPPED ON NAIL Hx Obtained From: Patient Hx Last Menstrual Period: n/a ?: No Onset/Duration: Sudden Onset, Lasting Hours Skin Exposure Onset/Duration: Hours Ago Timing: Constant Onset Severity: Mild Current Severity: None Pain Intensity: 0 Location: Discrete - Allergy/Home Medications Allergies/Adverse Reactions: Allergies Allergy/AdvReac Type Severity Reaction Status Date / Time buspirone [From BuSpar] Allergy Unknown Verified 11/16/18 13:06 Reaction Details cephalexin Allergy Unknown Verified 11/16/18 13:06 Reaction Details epinephrine Allergy Shortness Verified 11/16/18 13:06 of Breath procaine Allergy Shortness Verified 11/16/18 13:06 of Breath Tetanus Vaccines and Toxoid AdvReac Intermediate localized Verified 02/04/19 14: 29 swelling and redness of injection site antihistamines Allergy See Comment Uncoded 11/16/18 13:06 PMH/Surg Hx/FS Hx/Imm Hx Previously Healthy: Yes - Surgical History Surgical History: Yes Surgery Procedure, Year, and Place: LENORE KNEE REPLACEMENT, TONSILLECTOMY. D&C. L carpal tunnel surgery. cataracts - Family History Known Family History: Positive: Cardiac Disease, Hypertension - Social History Alcohol Use: None Substance Use Type: None Smoking Status (MU): Current Every Day Smoker Type: eCigarettes Amount Used/How Often: daily Length of Time of Smoking/Using Tobacco: 35+ years Have You Smoked in the Last Year: Yes Household Exposure Type: Cigarettes - Immunization History Most Recent Influenza Vaccination: 2012 Most Recent Tetanus Shot: ALLERGIC- SEE COMENT IN ALLERGIES Review of Systems All Other Systems Reviewed And Are Negative: Yes Skin: Positive: Other - small puncture Is Patient Immunocompromised?: No Physical Exam Triage Information Reviewed: Yes Appearance: Well-Appearing, Well-Nourished, Pain Distress Vital Signs: Initial Vital Signs Temp 97.6 F 02/04/19 14:33 Pulse 72 02/04/19 14:33 Resp 17 02/04/19 14:33 BP 124/65 02/04/19 14:33 Pulse Ox 99 02/04/19 14:33 Vital Signs Reviewed: Yes Eye Exam: Normal ENT Exam: Normal Dental Exam: Normal Neck exam: Normal Respiratory Exam: Normal Cardiovascular Exam: Normal Abdominal Exam: Normal Bowel Sounds: Positive: Present Musculoskeletal Exam: Normal Neurological Exam: Normal Psychological Exam: Normal Skin: Positive: Other - small superficial puncture of the bottom of great toe Course/Dx - Course Course Of Treatment: hx obtained, exam performed, meds reviewed, given boostrix, aware of localized reaction last time she received one, states it was many years ago. no further treatment - Differential Diagnoses - Skin Complaint Differential Diagnoses: Other - puncture wound - Diagnoses Provider Diagnosis: Puncture wound Discharge - Sign-Out/Discharge Documenting (check all that apply): Patient Departure All imaging exams completed and their final reports reviewed: No Studies - Discharge Plan Condition: Stable Disposition: HOME Patient Education Materials: Puncture Wound (DC) Referrals: Shruthi Zimmerman MD [Primary Care Provider] - Additional Instructions: 1. you were givena Tdap today 2. Soak foot in warm epsom salt water for a few days. 3. Follow up as needed. - Billing Disposition and Condition Condition: STABLE Disposition: Home
[2019-02-04 15:17] VITALS: BP 122/65
== END 2019-02-04 15:17 | disposition home or self-care (01) ==
LOC: UCCORT 14:08
DX: S91.131A Puncture wound without foreign body of right great toe without damage to nail, initial encounter (principal); F17.290 Nicotine dependence, other tobacco product, uncomplicated; Z88.8 Allergy status to other drugs, medicaments and biological substances; Z88.1 Allergy status to other antibiotic agents; Z88.7 Allergy status to serum and vaccine; W45.0XXA Nail entering through skin, initial encounter; Y92.9 Unspecified place or not applicable
CPT/HCPCS: 90471; 90715; 99211; G0463

== ENCOUNTER 2019-03-23 12:54 | Emergency (ER) | payer MEDICARE, OTHER ==
[2019-03-23] MEDS ORDERED: NS 0.9% 1000 ML** 1,000 ML IV ONE (13:20)
[2019-03-23] MEDS ORDERED: Meclizine TAB* 12.5 MG PO ONE (13:20)
--- NOTE | 2019-03-23 13:22 | ED ---
Dizziness - HPI Summary HPI Summary: This pt is a 63 y/o female presenting to [facility] c/o dizziness since 4 days ago. Pt reports she sustained a severe concussion in October 2018 when she fell in her house. Pt had an MRI in 2018. She notes that since then she has felt intermittent dizziness but this became more constant 4 days ago. Pt states Friday night (4 days ago) she was in bed when she turned her head to the left and felt like she "was in a tornado" subsequently falling out of her bed. Denies associated nausea and vomiting with dizziness. She reports that 3 days ago she also had dizziness. 2 days ago pt went to the ED in [place] and was prescribed Meclizine, which seemed to help. Yesterday she started to feel well until the night when her dizziness began again. This morning pt felt dizzy again and went straight to Dr. Daniel's office. Per , pt was off balanced and had an unsteady gait. Additionally notes pt had "no attention span" and was drowsy "falling asleep" when speaking with the doctor. Pt denies fever, chills, chest pain, SOB, nausea, vomiting. Pt is followed up by Dr. Daniel, neurologist, for tremors and recurrent falls s /p concussion. Pt has an upcoming shoulder surgery on 03/31/19 and was advised to follow up with Dr. Daniel before surgery. She has a follow up appointment tomorrow at Dr. Daniel's office for her dizziness. 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 Negative: Nausea, Vomiting, Chest Pain, SOB, Fever, Chills - Allergies/Home Medications Allergies/Adverse Reactions: Allergies Allergy/AdvReac Type Severity Reaction Status Date / Time buspirone [From BuSpar] Allergy Unknown Verified 03/23/19 13:05 Reaction Details cephalexin Allergy Unknown Verified 03/23/19 13:05 Reaction Details epinephrine Allergy Shortness Verified 03/23/19 13:05 of Breath antihistamines Allergy See Comment Uncoded 11/16/18 13:06 Home Medications: Home Medications Acetaminophen TAB* [Tylenol TAB*] 650 mg PO Q4H PRN 03/23/19 [History Confirmed 03/23/19] Aspirin EC TAB* [Ecotrin EC Low Dose 81 MG*] 81 mg PO DAILY 03/23/19 [History Confirmed 03/23/19] Gabapentin CAP(*) [Neurontin 300 CAP(*)] 300 mg PO BID 03/23/19 [History Confirmed 03/23/19] Gabapentin CAP(*) [Neurontin 300 CAP(*)] 900 mg PO BEDTIME 03/23/19 [History Confirmed 03/23/19] Hydrocortisone 2.5% CREAM(NF) 1 applic TOPICAL BID 03/23/19 [History Confirmed 03/23/19] L. Rhamnosus GG/Inulin [Culturelle Probiotics Capsule] 1 cap PO DAILY 03/23/19 [ History Confirmed 03/23/19] Levothyroxine TAB* [Synthroid TAB*] 125 mcg PO QAM 03/23/19 [History Confirmed 03/23/19] Meclizine TAB* [Antivert 12.5 TAB*] 25 mg PO TID PRN 03/23/19 [History Confirmed 03/23/19] Omeprazole (Nf) [Prilosec (NF)] 40 mg PO BID 03/23/19 [History Confirmed ] Potassium Chlor TAB* [Klor Con ER TAB*] 20 meq PO DAILY 03/23/19 [History Confirmed 03/23/19] Primidone TAB(*) [Mysoline TAB(*)] 50 mg PO BEDTIME 03/23/19 [History Confirmed 03/23/19] Rosuvastatin (NF) [Crestor] 20 mg PO DAILY 03/23/19 [History Confirmed 03/23/19] Sucralfate TAB* [Carafate*] 1 gm PO ACHS 03/23/19 [History Confirmed 03/23/19] lamoTRIgine TAB(*) [LaMICtal TAB(*)] 200 mg PO DAILY 03/23/19 [History Confirmed 03/23/19] oxyCODONE/Acetamin 5/325 MG* [Percocet 5/325 TAB*] 1 tab PO Q4H PRN 03/23/19 [ History Confirmed 03/23/19] PMH/Surg Hx/FS Hx/Imm Hx Endocrine/Hematology History: Reports: Hx Thyroid Disease Denies: Hx Diabetes Cardiovascular History: Reports: Hx Hypertension - MEDICATION Denies: Hx Pacemaker/ICD Respiratory History: Denies: Hx Asthma, Hx Chronic Obstructive Pulmonary Disease (COPD) GI History: Reports: Hx Ulcer History: Denies: Hx Renal Disease Sensory History: Denies: Hx Hearing Aid Psychiatric History: Denies: Hx Panic Disorder - Surgical History Surgery Procedure, Year, and Place: [facility] KNEE REPLACEMENT, TONSILLECTOMY. D&C. L carpal tunnel surgery. cataracts Infectious Disease History: No Infectious Disease History: Denies: Hx Clostridium Difficile, Hx Hepatitis, Hx Human Immunodeficiency Virus (HIV), Hx of Known/Suspected MRSA, Hx Shingles, Hx Tuberculosis, Hx Known/ Suspected VRE, Hx Known/Suspected VRSA, History Other Infectious Disease, Traveled Outside the [place] in Last 30 Days - Family History Known Family History: Positive: Cardiac Disease, Hypertension - Social History Alcohol Use: None Substance Use Type: Reports: None Smoking Status (MU): Current Every Day Smoker Type: eCigarettes Amount Used/How Often: daily Length of Time of Smoking/Using Tobacco: 35+ years Have You Smoked in the Last Year: Yes Review of Systems Negative: Fever Negative: Chest Pain Negative: Shortness Of Breath Negative: Vomiting, Nausea Neurological: Other - POSITIVE: dizziness, drowsy All Other Systems Reviewed And Are Negative: Yes Physical Exam - Summary Physical Exam Summary: VITAL SIGNS: Reviewed. GENERAL: Patient is a well-developed and nourished female who is lying comfortable in the stretcher. Patient is not in any acute respiratory distress. HEAD AND FACE: No signs of trauma. No ecchymosis, hematomas or skull depressions. No sinus tenderness. EYES: PERRLA, EOMI x 2, No injected conjunctiva, no nystagmus. No photophobia. EARS: Hearing grossly intact. Ear canals and tympanic membranes are within normal limits. MOUTH: Oropharynx within normal limits. NECK: Supple, trachea is midline, no adenopathy, no JVD, no carotid bruit, no c- spine tenderness, neck with full ROM. No meningeal signs, no Kernig's or brudzinskis signs. CHEST: Symmetric, no tenderness at palpation LUNGS: Clear to auscultation bilaterally. No wheezing or crackles. CVS: Regular rate and rhythm, S1 and S2 present, no murmurs or gallops appreciated. ABDOMEN: Soft, non-tender. No signs of distention. No rebound no guarding, and no masses palpated. Bowel sounds are normal. EXTREMITIES: FROM in all major joints, no edema, no cyanosis or clubbing. NEURO: Alert and oriented x 3. No acute neurological deficits. Speech is normal and follows commands. SKIN: Dry and warm. GCS: 15 Triage Information Reviewed: Yes Vital Signs On Initial Exam: Initial Vitals Temp Pulse Resp BP Pulse Ox 97.6 F 74 16 135/87 97 03/23/19 12:57 03/23/19 12:57 03/23/19 12:57 03/23/19 12:57 03/23/19 12:57 Vital Signs Reviewed: Yes Diagnostics - Vital Signs Vital Signs Temp Pulse Resp BP Pulse Ox 03/23/19 12:57 97.6 F 74 16 135/87 97 - Laboratory Result Diagrams: 03/23/19 13:58 03/23/19 13:58 Lab Statement: Any lab studies that have been ordered have been reviewed, and results considered in the medical decision making process. - Radiology Chest XR Radiology Interpretation Completed By: Radiologist Summary of Radiographic Findings: IMPRESSION: Findings suggestive of COPD, no evidence for acute finding. Dr. Kenyon has reviewed this report. - CT Brain CT CT Interpretation Completed By: Radiologist Summary of CT Findings: IMPRESSION: No acute intracranial pathology. Dr. Kenyon has reviewed this report. - EKG 13:33 Cardiac Rate: NL - at 64 BPM EKG Rhythm: Sinus Rhythm Summary of EKG Findings: No ST elevations. Diffuse ST abnormalities. Re-Evaluation - Re-Evaluation First Eval Re-Evaluation Time: 16:15 Change: Improved Comment: Reviewed results with pt. Pt reports feeling better. She will be discharged home with follow up from Dr. Daniel as scheduled tomorrow. Dizzy Course/Dx - Course Assessment/Plan: This pt is a 63 y/o female presenting to [facility] c/o dizziness since 4 days ago. Pt reports she sustained a severe concussion in October 2018 when she fell in her house. Pt had an MRI in 2018. She notes that since then she has felt intermittent dizziness but this became more constant 4 days ago. Pt states Friday night (4 days ago) she was in bed when she turned her head to the left and felt like she "was in a tornado" subsequently falling out of her bed. Denies associated nausea and vomiting with dizziness. She reports that 3 days ago she also had dizziness. 2 days ago pt went to the ED in [place] and was prescribed Meclizine, which seemed to help. Yesterday she started to feel well until the night when her dizziness began again. This morning pt felt dizzy again and went straight to Dr. Daniel's office. Per , pt was off balanced and had an unsteady gait. Additionally notes pt had "no attention span" and was drowsy "falling asleep" when speaking with the doctor. Pt denies fever, chills, chest pain, SOB, nausea, vomiting. Pt is followed up by Dr. Daniel, neurologist, for tremors and recurrent falls s /p concussion. Pt has an upcoming shoulder surgery on 03/31/19 and was advised to follow up with Dr. Daniel before surgery. She has a follow up appointment tomorrow at Dr. Daniel's office for her dizziness. Brain CT shows no acute intracranial pathology. Chest x-ray impression: Findings suggestive of COPD, no evidence for acute findings. Blood work without any significant abnormality except for potassium level of 3.3, creatinine 1.1, glucose of 113 and phenobarbital is less than 5. In the ED course the patient was given IV fluids , the patient was given meclizine for her symptoms and they have improved. I discussed my physical exam and findings with Dr. Daniel from neurology and he recommends for the patient to be discharged home and she will follow-up with him in his office tomorrow. Patient is hemodynamically stable, alert and oriented 3. - Diagnoses Provider Diagnoses: Vertigo - Provider Notifications Discussed Care Of Patient With: Eddie Daniel Time Discussed With Above Provider: 13:38 Instructed by Provider To: Other - Discussed with Dr. Daniel, neurologist, who reports he is worried because pt was very lethargic at his office and with hx of falls he does not know if she had a fall. He recommends a brain CT and levels of phenobarbital, clonazepam, and primidone. If normal pt can be discharge home. Discharge - Sign-Out/Discharge Documenting (check all that apply): Patient Departure - Discharge home Patient Received Moderate/Deep Sedation with Procedure: No - Discharge Plan Condition: Stable Disposition: HOME Patient Education Materials: Vertigo (ED) Referrals: Eddie Daniel MD [Medical Doctor] - Shruthi Zimmerman MD [Primary Care Provider] - Additional Instructions: Follow up with Dr. Daniel, neurologist, as scheduled tomorrow. FOLLOW UP WITH YOUR PRIMARY CARE PROVIDER IN 2-3 DAYS. RETURN TO THE EMERGENCY DEPARTMENT FOR ANY WORSENING OR NEW SYMPTOMS. - Billing Disposition and Condition Condition: STABLE Disposition: Home - Attestation Statements Document Initiated by Luis: Yes Documenting Scribe: Anayeli Barakat Provider For Whom Luis is Documenting (Include Credential): Jm Kenyon MD Scribe Attestation: Anayeli Lal, scribed for Jm Kenyon MD on 03/23/19 at 2106. Scribe Documentation Reviewed: Yes Provider Attestation: The documentation as recorded by the Anayeli roman accurately reflects the service I personally performed and the decisions made by me, Jm Kenyon MD Status of Scribe Document: Viewed
[2019-03-23 14:11] LABS: ABS Basophils 0.1 10^3/ul (0-0.2); ABS Eosinophils 0.4 10^3/ul (0-0.6); ABS Lymphocytes 2.5 10^3/ul (1.0-4.8); ABS Monocytes 0.6 10^3/ul (0-0.8); Eosinophil % 4.5 %; Hematocrit 41 % (35-47); Hemoglobin 13.9 g/dL (12.0-16.0); Lymphocyte % 28.8 %; Mean Corpuscular HGB Conc 34 g/dL (31-36); Mean Corpuscular Hemoglobin 29 pg (27-31); Mean Corpuscular Volume 87 fL (80-97); Mean Platelet Volume 8.2 fL (7.4-10.4); Nucleated Red Blood Cells % 0.1; Platelet Count 326 10^3/uL (150-450); Red Blood Count 4.73 10^6 /uL (3.70-4.87); Red Cell Distribution Width 14 % (10-15); White Blood Count 8.6 10^3/uL (3.5-10.8)
[2019-03-23 14:26] LABS: Albumin 4.3 g/dL (3.2-5.2); Albumin/Globulin Ratio 1.7 (1-3); BUN/Creatinine Ratio 11.6 (8-20); C Reactive Protein 3.54 mg/L (<8.01); Calcium 9.8 mg/dL (8.6-10.3); EGFR African American 59.8 (>60); EGFR Non-African American 49.5 (>60); Globulin 2.5 g/dL (2-4); Magnesium 2.2 mg/dL (1.9-2.7); Potassium 3.3 mmol/L (3.5-5.0); Total Bilirubin 0.4 mg/dL (0.2-1.0); Total Protein 6.8 g/dL (6.4-8.9)
[2019-03-23 14:59] LABS: TSH (Thyroid Stimulating Horm) 3.73 mcIU/mL (0.34-5.60)
[2019-03-23] MEDS ORDERED: Potassium Chlor TAB* 20 MEQ TAB.ER PO ONE (16:11)
[2019-03-23 16:27] VITALS: BP 127/77
[2019-03-24 17:55] LABS: Primidone <2.5 mcg/mL (5.0 - 12.0)
[2019-03-25 08:48] LABS: 7-Aminoclonazepam 14.4 ng/mL; Clonazepam 12.6 ng/mL
== END 2019-03-23 16:26 | disposition home or self-care (01) ==
LOC: ED 12:54
DX: R42 Dizziness and giddiness (principal); I10 Essential (primary) hypertension; E07.9 Disorder of thyroid, unspecified; F17.290 Nicotine dependence, other tobacco product, uncomplicated; Z79.82 Long term (current) use of aspirin; Z79.899 Other long term (current) drug therapy; Z79.891 Long term (current) use of opiate analgesic
CPT/HCPCS: 36415; 70450; 71046; 80053; 80184; 80188; 80346; 83605; 83735; 84443; 84484; 85025; 86140; 93005; 96360; 96361; 99284; A9270-GY; G0480

== ENCOUNTER 2019-07-01 16:16 | Emergency (ER) | payer MEDICARE, OTHER ==
--- OUTSIDE RECORDS SUMMARY | 2019-07-01 16:52 | XMS REPORT | Summary of Care ---
:1955 Author Organization [facility] Address [address] [address] Care Team Providers Name Role Phone Shruthi Zimmerman MD Primary Care Provider Reason for Referral Refer to Department Only (Routine) Status Reason Specialty Diagnoses / Referred By Referred To Procedures Contact Contact Pending Review Physical Therapy Diagnoses Acute pain of right shoulder Latrice Baldwin, RPA-C [address] [place] [address] Reason for Visit Reason Comments Surgical Followup POST OP RT RCR 05/12/2019. Patient is doing well. Encounter Details Date Type Department Care Team Description 05/25/2019 Office Visit [facility] - Latrice Baldwin, Acute pain of right [place] RPA-C shoulder (Primary Dx) [address] [place], [place] [id number] [place] [address] [phone] Allergies Active Allergy Reactions Severity Noted Date Comments Becca 10/21/2007 "all antihistimines cause hyperactivity" Antihistamines, DIRECTOR OF [employer]VENUE Reaction 02/29/2008 Diphenhydramine-Type Buspirone 10/21/2007 "buspar" Epinephrine Cardiac Reaction 03/19/2019 Morphine Dermatologic Reaction 06/13/2015 Rash and hives documented as of this encounter (statuses as of 05/25/2019) Medications Medication Sig Dispensed Refills Start End Date Status Date lamotrigine (LAMICTAL) Take 150 mg 0 Active 100 MG Oral by mouth TabIndications: taking DAILY. 150mg Indications: taking 150mg lithium 300 MG Oral Tab Take 1 Tab 10 Tab 0 Active by mouth 0 TWICE DAILY. Aspirin 81 MG Oral Tab Take 81 mg 0 Active by mouth. Lactobacillus Take 1 Cap 0 Active Rhamnosus, GG, by mouth (CULTURELLE) Oral Cap DAILY. clonazePAM (KLONOPIN) 2 Take 1 mg by 90 Tab 0 Active MG Oral Tab mouth TWICE 5 DAILY. duloxetine (CYMBALTA) Take 3 Caps 60 Cap 0 Active 30 MG Oral CAPSULE by mouth 5 ENTERIC COATED DAILY. PARTICLES acetaminophen (TYLENOL) Take 650 mg 0 Active 325 MG Oral Tab by mouth EVERY FOUR HOURS NEEDED for Pain. ondansetron (ZOFRAN Take 1 Tab 60 Tab 0 Active ODT) 8 MG Oral TABLET by mouth 7 DISPERSIBLEIndications: EVERY EIGHT Nausea HOURS NEEDED for nausea. hydrocortisone (HYTONE) 1 Appl by 1 Tube 0 Active 2.5 % Apply externally Topical 8 Cream route TWICE DAILY. sucralfate (CARAFATE) 1 TAKE ONE 120 Tab 5 Active GM Oral TabIndications: TABLET BY 8 Gastroesophageal reflux MOUTH FOUR disease, esophagitis TIMES DAILY presence not specified BEFORE MEALS AND NIGHTLY primidone (MYSOLINE) 50 Take 50 mg 0 Active MG Oral Tab by mouth EVERY BEDTIME. Omeprazole 40 MG Oral Take 1 Cap 180 Cap 1 Active CAPSULE DELAYED RELEASE by mouth 9 TWICE DAILY. hydrochlorothiazide TAKE ONE 90 Tab 1 Active (HCTZ, ORETIC) 25 MG TABLET BY 9 Oral Tab MOUTH DAILY meclizine (ANTIVERT) 25 Take 25 mg 0 Active MG Oral Tab by mouth THREE TIMES DAILY NEEDED for dizziness/ve rtigo. levothyroxine Take 1 Tab 90 Tab 0 Active (SYNTHROID) 125 MCG by mouth 9 Oral Tab BEFORE BREAKFAST. potassium chloride Take 1 Tab 90 Tab 1 Active (K-DUR) 20 MEQ Oral Tab by mouth 9 CR DAILY. gabapentin (NEURONTIN) TAKE 1 450 Cap 1 Active 300 MG Oral Cap CAPSULE 9 EVERY MORNING, 1 MIDDAY AND 3 AT BEDTIME MAXIMUM DAILY DOSE = 5 CAPSULES Rosuvastatin Calcium TAKE ONE 90 Tab 1 Active (CRESTOR) 20 MG Oral TABLET BY 9 TabIndications: High MOUTH DAILY triglycerides levothyroxine Take 1 Tab 30 Tab 3 Active (SYNTHROID) 137 MCG by mouth 9 Oral Tab BEFORE BREAKFAST. OXYcodone-acetaminophen Take 1 Tab 42 Tab 0 05/25/20 Discontinued (PERCOCET) 5-325 MG by mouth 9 19 (No longer Oral Tab EVERY FOUR clinically HOURS indicated) NEEDED (pain). Max Daily Amount: 6 Tabs. documented as of this encounter (statuses as of 05/25/2019) Active Problems Problem Noted Date Acute pain of right shoulder 05/25/2019 Traumatic complete tear of right rotator cuff 03/19/2019 Tear of right rotator cuff 02/24/2019 Overview: Added automatically from request for surgery [id number] Bipolar affective disorder 01/28/2019 Bursitis of left hip 01/21/2018 Right hip pain 01/07/2017 Trochanteric bursitis, right hip 09/16/2016 Spinal stenosis of lumbar region with radiculopathy 09/16/2016 Hypothyroidism 11/23/2010 Bipolar Disorder 01/04/2008 Tobacco use disorder 08/27/2007 Degenerative disc disease 08/27/2007 Cervical dysplasia Overview: cryo- in 80s DJD (degenerative joint disease) GERD (gastroesophageal reflux disease) Fatty liver Hypertension BMI 36.0-36.9,adult Ulcerative colitis Overview: history of, resolved documented as of this encounter (statuses as of 05/25/2019) Resolved Problems Problem Noted Date Resolved Date Pain in beck left 07/23/2012 12/09/2013 Ulcerative colitis 01/04/2008 03/13/2009 Overview: Reports that this was actually infectious colitis documented as of this encounter (statuses as of 05/25/2019) Immunizations Name Administration Dates Next Due Depo Medrol (80mg) 09/16/2016 Influenza (IM) Preservative Free 06/19/2018, 08/12/2017, 06/18/2016, 08/17/2015, 08/16/2014, 08/19/2013, 10/27/2012, 08/17/2010, 08/02/2008 Influenza Vaccine Whole 08/09/2009, 08/18/2007, 07/23/2006, 08/12/2005, 08/02/2003 documented as of this encounter Social History Tobacco Use Types Packs/Day Years Used Date Former Smoker 0 29 Quit: 01/12/2016 Smokeless Tobacco: Never Used Comments: smokes E-Cig now Alcohol Use Drinks/Week oz/Week Comments No 0 Standard drinks or equivalent 0.0 Sex Assigned at Date Recorded Not on file Job Start Date Occupation Industry Not on file Not on file Not on file Travel History Travel Start Travel End No recent travel history available. documented as of this encounter Last Filed Vital Signs Vital Sign Reading Time Taken Comments Blood Pressure 135/84 05/25/2019 1:45 PM EDT Pulse 83 05/25/2019 1:45 PM EDT Temperature - - Respiratory Rate - - Oxygen Saturation - - Inhaled Oxygen Concentration - - Weight 91.2 kg (201 lb) 05/25/2019 1:45 PM EDT Height 170.2 cm (5' 7") 05/25/2019 1:45 PM EDT Body Mass Index 31.48 05/25/2019 1:45 PM EDT documented in this encounter Progress Notes Latrice Baldwin RPA-C - 05/25/2019 2:00 PM EDT Patient: Marbella Fraga : 1955 Date of Service: 05/25/2019 Chief Complaint Patient presents with Surgical Followup POST OP RT RCR 05/12/2019. Patient is doing well. HPI: Marbella Fraga is a 64-y.o. female who is here for follow up from Her right shoulder open decompression 05/12/19. The patient reports that she is mobilizing with pain rated as 4/10 in the Shoulder . Denies fever, chills, constitutional symptoms. States feeling better Physical Exam: Shoulder: Elbow and wrist range of motion are full and pain free. Incision is healing well. [place] were removed And steri strips were applied. Neurological: Sensation is intact to the hand. Vascular: Radial pulse is present. Hand swelling of the right absent. Skin condition to the rightupper extremity is unremarkable and intact. Impression: ICD-9-CM ICD-10-CM 1. Acute pain of right shoulder 719.41 M25.511 REFER TO PHYSICAL THERAPY / REHAB Plan: The diagnosis was discussed with the patient. Will refer to pt. Recheck in 4 weeks. Author: EMILIANA Palacios 05/25/2019 14:21 documented in this encounter Plan of Treatment Date Type Specialty Care Team Description 06/22/2019 Office Visit Orthopedics Nathanael Malagon MD [address] [place] [address] [phone] Name Type Priority Associated Diagnoses Order Schedule REFER TO PHYSICAL Referral Routine Acute pain of right 99 Occurrences starting THERAPY / REHAB shoulder 05/25/2019 until 05/25/2020 Health Maintenance Due Date Last Done Comments ZOSTER IMMUNIZATION SERIES 2007 (1 of 2) INFLUENZA VACCINE (#1) 2019 06/19/2018, 08/12/2017, 06/18/2016, Additional history exists MEDICARE ANNUAL WELLNESS 06/19/2019 06/19/2018 VISIT MAMMOGRAM (SCREENING) 09/17/2019 09/17/2018, 09/08/2017, 09/03/2016, Additional history exists DEPRESSION SCREENING 03/17/2020 03/17/2019, 03/17/2019 LIPID DISORDER SCREENING 04/23/2020 04/23/2019, 09/03/2016, 01/16/2016, Additional history exists DIABETES SCREENING 04/28/2020 04/28/2019, 03/17/2019, 08/19/2018, Additional history exists COLONOSCOPY SCREENING 01/01/2021 01/01/2018, 01/01/2018, 2015, Additional history exists PAP SMEAR 06/19/2021 06/19/2018, 06/13/2015, 06/13/2015, Additional history exists HPV IMMUNIZATION SERIES Aged Out No longer eligible based on patient's age to complete this topic MENINGOCOCCAL VACCINE IMM Aged Out No longer eligible based on patient's age to complete this topic PNEUMOCOCCAL 0-64 YRS Aged Out No longer eligible based on patient's age to complete this topic documented as of this encounter Goals Goal Patient Goal Associated Recent Patient-Stated? Author Type Problems Progress Blood Pressure Blood Pressure Hypertension 135/84 No Erasmo, < 140/90 (05/25/2019 Shruthi, 1:45 PM EDT) Note: Hypertension Care Plan Based on the patient's clinical history and according to JNC 8 guidelines target blood pressure goal is less than 140/90. Based on the patient's last blood pressure of BP: 130/82 mmHg the patient is at at goal. As your provider, it is important that I advise you regarding: your current medications and help you with any challenges you may face taking your medications as directed (ex. instructions, cost, side effects, and interactions). Important lifestyle changes: weight reduction your clinical goals and how you can achieve success: weight reduction and smoking cessation medication management: adjusted medications as appropriate patient education/self-management tools provided: Yes To successfully manage my Hypertension I will: monitor my blood pressure daily, understanding that my goal is less than 140/ 90 per my healthcare provider's recommendation. I will schedule an appointment with my provider if consistent abnormal readings greater than 160/100. take medications every day as prescribed by my healthcare provider and if unable to take them I will discuss with my provider. monitor for symptoms of chest pain, chest tightness/pressure, irregular heartbeat, persistent dizziness, radiating arm pain, and neck or jaw pain. If any of these symptoms are noticed I will seek medical attention immediately by calling 911 follow a diet rich in fruits, vegetables, and low-fat dairy products with reduced content of saturated & total fat. I will reduce my sodium intake daily. An example is the DASH diet. To obtain more information please refer to the DASH Eating Plan listed in Educational Resources. record my blood pressure results. [employer] is safe and secure way for you to do this in your medical record online. limit alcohol consumption. For men two drinks per day and women one drink per day. if currently smoking, will discuss how to quit smoking with my healthcare provider and work towards quitting. Educational Resources: National Heart, Lung, & Blood [place] http://nhlbi.nih.gov/hbp/index.html The DASH Diet Eating Plan http://www.nhlbi.nih.gov/health/health-topics/ topics/dash/ Academy of Nutrition & DIetetics http://eatright.org National Smoking Cessation Site http://smokefree.gov Blood Pressure < Blood Pressure 135/84 (05/25/2019 No Shruthi Zimmerman, 140/90 1:45 PM EDT) Note: This is an individualized treatment (blood pressure) goal for Marbella Fraga: Displayed above (on the left) is your goal for blood pressure control. Your most recent blood pressure is also shown above, on the right. You should try to achieve blood pressures that are lower than your goal listed above (on the left). Depression screen Depression 10 (03/17/2019 3:38 PM No Shruthi Zimmerman, (PHQ-9) total score < 5 EDT) Note: This is an individualized treatment (depression) goal for Marbellaugo Fraga: Displayed above is your goal for a depression screening (PHQ-9) score that would indicate good control of your depression. Lifestyle - Current Lifestyle Tobacco use disorder Shruthi Robles MD Smoker Note: Smoking Cessation Plan Discussed smoking cessation with patient. Patient readiness to quit:no Discussed smoking cessation plan according to AHRQ guidelines:counseled patient on the risks of tobacco use and advised patient to quit and offered support My Quit Plan: My quit date is set for Notify my friends, family, and co-workers about decision to quit. Will ask for their support and understanding Remove tobacco products from my environment. I will ask people not to smoke around me or in my home. I will anticipate challenges at the beginning and will try not to be discouraged. To remember the benefits of quitting such as improved health, feeling better about myself, saving money, etc. Reducing stressors and avoiding triggers are essential keys to my success Finding ways to distract myself when I have the urge to smoke such as taking a walk, reading, playing a board game, putting together a puzzle, etc. Taking medications as my healthcare provider has advised to help alleviate the urge to smoke. If I am unable to take the medication, I will discuss further with my healthcare provider. Recognize reasons for relapse in my past attempts. What did and did not work for me Consider connecting with group, individual, or telephone counseling Weight loss vs. 18 mo Lifestyle 30.6 (05/25/2019 1:45 PM No Shruthi Zimmerman MD max (lbs) >= 10 EDT) Note: This is an individualized lifestyle goal for Marbella Fraga: Your body mass index (BMI) is more than 30. You should lose weight. A reasonable starting goal is to lose 10 pounds. Displayed above is how many pounds you have lost thus far towards your 10 pound weight loss goal. Keep a regular sleep schedule Lifestyle Shruthi Robles MD Note: This is an individualized lifestyle goal for Marbella Del Rosario Fraga: Please maintain a regular sleep schedule. This may help with some symptoms of depression. Take all prescribed medications as Self-management No Shruthi Zimmerman MD directed Note: This is an individualized self-management goal for Marbella Fraga: Please take all prescribed medications as directed. 1. Do not skip doses. If you cannot afford your medications, talk with your doctor. 2. Use a pill reminder system such as a pill box if needed. Your pharmacist can help you with this. 3. Contact your Pharmacy 5 days before your medication runs out. If you cannot take your medications for any reasons, talk with your doctor. 4. Please bring all of your medication bottles and inhalers (or a list of all your medications/inhalers) with you to every visit. Potential barriers to meeting all of your care plan goals will continue to be addressed on an ongoing basis. documented as of this encounter Results Not on filedocumented in this encounter Visit Diagnoses Diagnosis Acute pain of right shoulder - Primary documented in this encounter Insurance Payer Benefit Plan / Subscriber ID Effective Dates Phone Address Type Group MEDICARE MEDICARE PART A xxxxxxxxxxx 2008-Present Medicare & B LIFETIME LIFETIME BENEFIT xxxxxxxxxxxx 2015-[facility] [phone] [id number] (Work) documented as of this encounter
--- OUTSIDE RECORDS SUMMARY | 2019-07-01 16:52 | XMS REPORT | Summary of Care ---
:1955 Author Organization [facility] Address [address] [address] Care Team Providers Name Role Phone Shruthi Zimmerman MD Primary Care Provider Reason for Referral Refer to Department Only (Routine) Status Reason Specialty Diagnoses / Referred By Referred To Procedures Contact Contact Authorized PAIN CLINIC / Diagnoses Chronic bilateral low back pain, with sciatica presence unspecified Nathanael Malagon, Pain Clinic MD [address] [place] [address] [place] [address] Scheduling Instructions To refer a patient to the Interventional Pain Clinic please call Please have the following ready: -Symptoms of the patient being referred -Recent films if available, NOT REQUIRED! -Known prior treatments Please be aware that we do not do medical management. Reason for Visit Reason Comments Follow Up RT RCR 05/12/2019. Patient states that she has good and bad days, but is still having arm pain. Encounter Details Date Type Department Care Team Description 06/22/2019 Office Visit [facility] - Nathanael Malagon MD Chronic bilateral low [place] [facility] back pain, with 10 [facility] [address] [place] [address] [place] [address] unspecified ([place] [address] Dx) [phone] Allergies Active Allergy Reactions Severity Noted Date Comments Becca 10/21/2007 "all antihistimines cause hyperactivity" Antihistamines, YARD INSPECTOR Reaction 02/29/2008 Diphenhydramine-Type Buspirone 10/21/2007 "buspar" Epinephrine Cardiac Reaction 03/19/2019 Morphine Dermatologic Reaction 06/13/2015 Rash and hives documented as of this encounter (statuses as of 06/22/2019) Medications Medication Sig Dispensed Refills Start Date End Date Status lamotrigine (LAMICTAL) 100 Take 150 mg by 0 Active MG Oral TabIndications: mouth DAILY. taking 150mg Indications: taking 150mg lithium 300 MG Oral Tab Take 1 Tab by 10 Tab 0 05/22/2010 Active mouth TWICE DAILY. Aspirin 81 MG Oral Tab Take 81 mg by 0 Active mouth. Lactobacillus Rhamnosus, Take 1 Cap by 0 Active GG, (CULTURELLE) Oral Cap mouth DAILY. clonazePAM (KLONOPIN) 2 MG Take 1 mg by 90 Tab 0 05/30/2015 Active Oral Tab mouth TWICE DAILY. duloxetine (CYMBALTA) 30 Take 60 mg by 60 Cap 0 05/30/2015 Active MG Oral CAPSULE ENTERIC mouth DAILY. COATED PARTICLES acetaminophen (TYLENOL) Take 650 mg by 0 Active 325 MG Oral Tab mouth EVERY FOUR HOURS NEEDED for Pain. ondansetron (ZOFRAN ODT) 8 Take 1 Tab by 60 Tab 0 09/30/2017 Active MG Oral TABLET mouth EVERY DISPERSIBLEIndications: EIGHT HOURS Nausea NEEDED for nausea. hydrocortisone (HYTONE) 1 Appl by 1 Tube 0 05/22/2018 Active 2.5 % Apply externally Topical route Cream TWICE DAILY. sucralfate (CARAFATE) 1 GM TAKE ONE 120 Tab 5 07/02/2018 Active Oral TabIndications: TABLET BY Gastroesophageal reflux MOUTH FOUR disease, esophagitis TIMES DAILY presence not specified BEFORE MEALS AND NIGHTLY primidone (MYSOLINE) 50 MG Take 50 mg by 0 Active Oral Tab mouth EVERY BEDTIME. hydrochlorothiazide (HCTZ, TAKE ONE 90 Tab 1 01/27/2019 Active ORETIC) 25 MG Oral Tab TABLET BY MOUTH DAILY meclizine (ANTIVERT) 25 MG Take 25 mg by 0 Active Oral Tab mouth THREE TIMES DAILY NEEDED for dizziness/vert igo. potassium chloride (K-DUR) Take 1 Tab by 90 Tab 1 04/09/2019 Active 20 MEQ Oral Tab CR mouth DAILY. gabapentin (NEURONTIN) 300 TAKE 1 CAPSULE 450 Cap 1 04/23/2019 Active MG Oral Cap EVERY MORNING, 1 MIDDAY AND 3 AT BEDTIME MAXIMUM DAILY DOSE = 5 CAPSULES Additional information Patient taking differently: Indications: one in am / 1 midday and now 2 pills at HS, Reported on 06/17/2019 1:07 PM Rosuvastatin Calcium (CRESTOR) TAKE ONE TABLET BY 90 Tab 1 04/23/2019 Active 20 MG Oral TabIndications: High MOUTH DAILY triglycerides levothyroxine (SYNTHROID) 137 Take 1 Tab by mouth 30 Tab 3 05/03/2019 Active MCG Oral Tab BEFORE BREAKFAST. Omeprazole 40 MG Oral CAPSULE Take 1 Cap by mouth 180 Cap 1 06/22/2019 Active DELAYED RELEASE TWICE DAILY. documented as of this encounter (statuses as of 06/22/2019) Active Problems Problem Noted Date Acute pain of right shoulder 05/25/2019 Traumatic complete tear of right rotator cuff 03/19/2019 Tear of right rotator cuff 02/24/2019 Overview: Added automatically from request for surgery [id number] Bipolar affective disorder 01/28/2019 Bursitis of left [...] as of this encounter (statuses as of 06/22/2019) Resolved Problems Problem Noted Date Resolved Date Pain in beck left 07/23/2012 12/09/2013 Ulcerative colitis 01/04/2008 03/13/2009 Overview: Reports that this was actually infectious colitis documented as of this encounter (statuses as of 06/22/2019) Immunizations Name Administration Dates Next Due Depo Medrol (80mg) 09/16/2016 Influenza (IM) Preservative Free 06/17/2019, 06/19/2018, 08/12/2017, 06/18/2016, 08/17/2015, 08/16/2014, 08/19/2013, 10/27/2012, [...] Sign Reading Time Taken Comments Blood Pressure 139/79 06/22/2019 1:12 PM EDT Pulse 64 06/22/2019 1:12 PM EDT Temperature - - Respiratory Rate - - Oxygen Saturation - - Inhaled Oxygen Concentration - - Weight 94.3 kg (208 lb) 06/22/2019 1:12 PM EDT Height 170.2 cm (5' 7") 06/22/2019 1:12 PM EDT Body Mass Index 32.58 06/22/2019 1:12 PM EDT documented in this encounter Progress Notes Nathanael Malagon MD - 06/22/2019 1:15 PM EDT Name: Marbella Fraga : 1955 Date of Service: 06/22/2019 Chief Complaint Patient presents with Follow Up RT RCR 05/12/2019. Patient states that she has good and bad days, but is still having arm pain. History of Present Illness: Marbella Fraga is a 64-y.o. female. The above is noted. Is in today for follow- up status post rightshoulder decompression performed on 05/12/2019. Overall she is doing fairly well however she states that she has been having pain during her physical therapy. The patient states her physical therapiststates she is doing well Physical Examination: BP 139/79 | Pulse 64 | Ht 5' 7" (1.702 m) | Wt 208 lb (94.3 kg) | BMI 32.58 kg/m Well-developed well-nourished female in minimal discomfort at rest patient has forward elevation to 180 degrees involving her right upper extremity she has abduction to 100 degrees. She is neurovascularly intact. Impression: That is post right shoulder decompression. Improving slowly. Also complains of low back pain and she states her low back pain has not been relieved by treatmentswith Dr. Ureña. Plan: Up with VIO[facility]TA or Maya Baldwin in 4 weeks and will refer patient for an evaluation by Dr. Ceballos. Regarding her low back discomfort. All questions were answered. There are no Patient Instructions on file for this visit. Author: Nathanael Malagon MD 06/22/2019 13:21 documented in this encounter Plan of Treatment Date Type Specialty Care Team Description 07/20/2019 Office Visit Orthopedics Nathanael Malagon MD [address] [place] [address] [phone] Name Type Priority Associated Diagnoses Order Schedule REFER TO PAIN CLINIC Referral Routine Chronic bilateral low Expected: 06/22, back pain, with sciatica Expires: 06/22/2020 presence unspecified Health Maintenance Due Date Last Done Comments ZOSTER IMMUNIZATION SERIES 2007 (1 of 2) MEDICARE ANNUAL WELLNESS 06/19/2019 06/19/2018 VISIT MAMMOGRAM (SCREENING) 09/17/2019 09/17/2018, 09/08/2017, 09/03/2016, Additional history exists DEPRESSION SCREENING 03/17/2020 03/17/2019, 03/17/2019 LIPID DISORDER SCREENING 04/23/2020 04/23/2019, 09/03/2016, 01/16/2016, Additional history exists DIABETES SCREENING 06/17/2020 06/17/2019, 04/28/2019, 03/17/2019, Additional history exists COLONOSCOPY SCREENING 01/01/2021 01/01/2018, 01/01/2018, 2015, Additional history exists PAP SMEAR 06/19/2021 06/19/2018, 06/13/2015, 06/13/2015, Additional history exists INFLUENZA VACCINE Completed 06/17/2019, 06/19/2018, 08/12/2017, Additional history exists HPV IMMUNIZATION SERIES Aged [...] Problems Progress Blood Pressure Blood Pressure Hypertension 139/79 No Erasmo, < 140/90 (06/22/2019 Shruthi, 1:12 PM EDT) Note: Hypertension Care Plan Based [...] Educational Resources. record my blood pressure results. Arunae is safe and secure way for you to do this in your medical record online. limit alcohol consumption. For men two drinks per day and women one drink per day. if currently smoking, will discuss how to quit smoking with my healthcare provider and work towards quitting. Educational Resources: National Heart, Lung, & Blood [place] http://nhlbi.nih.gov/hbp/index.html The DASH Diet Eating Plan http://www.nhlbi.nih.gov/health/health-topics/ topics/dash/ Academy of Nutrition & DIetetics http://eatright.org National Smoking Cessation Site http://smokefree.gov Blood Pressure < Blood Pressure 139/79 (06/22/2019 No Shruthi Zimmerman, 140/90 1:12 PM EDT) Note: This is an individualized [...] is an individualized treatment (depression) goal for Marbella Del Rosario Flakito: Displayed above is your goal for a depression screening (PHQ-9) score that would indicate good control of your depression. Lifestyle - Current Lifestyle Tobacco use disorder No Shruthi Zimmerman MD Smoker Note: Smoking Cessation Plan Discussed [...] counseling Weight loss vs. 18 mo Lifestyle 23.6 (06/22/2019 1:12 PM Shruthi Robles MD max (lbs) >= 10 EDT) Note: This is an individualized lifestyle goal for Marbella Miguel Ángel Fraga: Your body mass index (BMI) is more than 30. You should lose weight. A reasonable starting goal is to lose 10 pounds. Displayed above is how many pounds you have lost thus far towards your 10 pound weight loss goal. Keep a regular sleep schedule Lifestyle Shruthi Robles MD Note: This is an individualized lifestyle goal for Marbella Fraga: Please maintain a regular sleep schedule. [...] filedocumented in this encounter Visit Diagnoses Diagnosis Chronic bilateral low back pain, with sciatica presence unspecified - Primary documented in this encounter Insurance Payer Benefit Plan / Subscriber ID Effective Dates Phone Address Type Group MEDICARE MEDICARE PART A xxxxxxxxxxx 2008-Present Medicare & B LIFETIME LIFETIME BENEFIT xxxxxxxxxxxx [facility] [phone] (Work) documented as of this encounter
--- OUTSIDE RECORDS SUMMARY | 2019-07-01 16:52 | XMS REPORT | Summary of Care ---
:1955 Author Organization [facility] Address [address] [address] Care Team Providers Name Role Phone Shruthi Zimmerman MD Primary Care Provider Reason for Visit Reason Comments Follow Up F/U left hip/leg pain. Patient states her left hip/leg pain is worsening, stating that it feels like lightening hitting it. Encounter Details Date Type Department Care Team Description 06/01/2019 Office Visit [facility] - Lino Boyd MD Trochanteric [place] [facility] bursitis, left hip 10 [facility] [address] (Primary Dx) [place] [address] [place] [address] [phone] Allergies Active Allergy Reactions Severity Noted Date Comments Becca 10/21/2007 "all antihistimines cause hyperactivity" Antihistamines, INFORMATICS APPLICATION ANALYST Reaction 02/29/2008 Diphenhydramine-Type Buspirone 10/21/2007 "buspar" Epinephrine Cardiac Reaction 03/19/2019 Morphine Dermatologic Reaction 06/13/2015 Rash and hives documented as of this encounter (statuses as of 06/01/2019) Medications Medication Sig Dispensed Refills Start Date [...] mouth TWICE DAILY. duloxetine (CYMBALTA) 30 Take 3 Caps by 60 Cap 0 05/30/2015 Active MG [...] 0 Active Oral Tab mouth EVERY BEDTIME. Omeprazole 40 MG Oral Take 1 Cap by 180 Cap 1 12/01/2018 Active CAPSULE DELAYED RELEASE mouth TWICE DAILY. hydrochlorothiazide (HCTZ, TAKE ONE 90 Tab 1 01/27/2019 Active ORETIC) 25 MG Oral Tab TABLET BY MOUTH DAILY meclizine (ANTIVERT) 25 MG Take 25 mg by 0 Active Oral Tab mouth THREE TIMES DAILY NEEDED for dizziness/vert igo. levothyroxine (SYNTHROID) Take 1 Tab by 90 Tab 0 04/09/2019 Active 125 MCG Oral Tab mouth BEFORE BREAKFAST. potassium chloride (K-DUR) Take 1 Tab by 90 Tab 1 04/09/2019 Active 20 MEQ Oral Tab CR mouth DAILY. gabapentin (NEURONTIN) 300 TAKE 1 CAPSULE 450 Cap 1 04/23/2019 Active MG Oral Cap EVERY MORNING, 1 MIDDAY AND 3 AT BEDTIME MAXIMUM DAILY DOSE = 5 CAPSULES Rosuvastatin Calcium TAKE ONE 90 Tab 1 04/23/2019 Active (CRESTOR) 20 MG Oral TABLET BY TabIndications: High MOUTH DAILY triglycerides levothyroxine (SYNTHROID) Take 1 Tab by 30 Tab 3 05/03/2019 Active 137 MCG Oral Tab mouth BEFORE BREAKFAST. documented as of this encounter (statuses as of 06/01/2019) Active Problems Problem Noted Date Acute pain of right shoulder 05/25/2019 Traumatic complete tear of right rotator cuff 03/19/2019 Tear of right rotator cuff 02/24/2019 Overview: Added automatically from request for surgery [id number] Bipolar affective disorder 01/28/2019 Bursitis of left [...] as of this encounter (statuses as of 06/01/2019) Resolved Problems Problem Noted Date Resolved Date Pain in beck left 07/23/2012 12/09/2013 Ulcerative colitis 01/04/2008 03/13/2009 Overview: Reports that this was actually infectious colitis documented as of this encounter (statuses as of 06/01/2019) Immunizations Name Administration Dates Next Due Depo [...] Sign Reading Time Taken Comments Blood Pressure 127/71 06/01/2019 9:41 AM EDT Pulse 69 06/01/2019 9:41 AM EDT Temperature - - Respiratory Rate - - Oxygen Saturation - - Inhaled Oxygen Concentration - - Weight 91.2 kg (201 lb) 06/01/2019 9:41 AM EDT Height 170.2 cm (5' 7") 06/01/2019 9:41 AM EDT Body Mass Index 31.48 06/01/2019 9:41 AM EDT documented in this encounter Progress Notes Lino Boyd MD - 06/01/2019 9:40 AM EDT Name: Marbella Fraga : 1955 Date of Service: 06/01/2019 Chief Complaint Patient presents with Follow Up F/U left hip/leg pain. Patient states her left hip/leg pain is worsening, stating that it feels like lightening hitting it. 64-year-old woman known to me presents with chronic bilateral low back pain but recent exacerbation of left hip pain consistent with trochanteric bursitis. In the past, she has done well with occasional injections for the trochanteric bursitis. No groin pain. Possibly some element of radicular painin the left leg. Physical exam shows a healthy-appearing woman in no acute distress. Alert and oriented. Back nontender. Very tender left hip trochanteric bursa. Hip range of motion is good without pain. Grossly neurovascular status left lower extremity intact. Impression: Lumbar spondylosis. Left greater trochanteric bursitis. Procedure: In a sterile manner, injected the left hip trochanteric bursa with 80 mg of Depo-Medrol and 3 cc of 1% lidocaine. Plan: Return as needed. ICD-9-CM ICD-10-CM 1. Trochanteric bursitis, left hip 726.5 M70.62 Author: Lino Boyd MD 06/01/2019 09:59 This record contains sections created with voice recognition software. It has been electronically signed. A reasonable attempt at proofreading has been made. Please call with any questions or corrections. documented in this encounter Plan of Treatment Date Type Specialty Care Team Description 06/22/2019 Office Visit Orthopedics Nathanael Malagon MD [address] [place] [address] [phone] Health Maintenance Due Date Last Done Comments [...] Problems Progress Blood Pressure Blood Pressure Hypertension 127/71 No Erasmo, < 140/90 (06/01/2019 Shruthi, 9:41 AM EDT) Note: Hypertension Care Plan Based on [...] Educational Resources. record my blood pressure results. [employer]Gjoellee is safe and secure way for you to do this in your medical record online. limit alcohol consumption. For men two drinks per day and women one drink per day. if currently smoking, will discuss how to quit smoking with my healthcare provider and work towards quitting. Educational Resources: National Heart, Lung, & Blood [place] http://nhlbi.nih.gov/hbp/index.html The DASH Diet Eating Plan http://www.nhlbi.nih.gov/health/health-topics/ topics/dash/ Academy of Nutrition & DIetetics http://eatright.org National Smoking Cessation Site http://smokefree.gov Blood Pressure < Blood Pressure 127/71 (06/01/2019 No Shruthi Zimmerman, 140/90 9:41 AM EDT) Note: This is an individualized treatment [...] an individualized treatment (depression) goal for Marbella Fraga: Displayed above is your goal for [...] Weight loss vs. 18 mo Lifestyle 30.6 (06/01/2019 9:41 AM No Shruthi Zimmerman MD max (lbs) >= [...] individualized lifestyle goal for Marbella Del Rosario Flakito: Please maintain a regular sleep schedule. This may help with some symptoms of depression. Take all prescribed medications as Self-management Shruthi Robles MD directed Note: This is an individualized self-management goal for Marbella Del Rosario Flakito: Please take all prescribed medications as directed. [...] filedocumented in this encounter Visit Diagnoses Diagnosis Trochanteric bursitis, left hip - Primary documented in this encounter Insurance Payer Benefit Plan / Subscriber ID Effective Dates Phone Address Type Group MEDICARE MEDICARE PART A xxxxxxxxxxx 2008-Present Medicare & B LIFETIME LIFETIME BENEFIT xxxxxxxxxxxx 2015-[facility] [employer] [phone] (Work) documented as of this encounter
--- OUTSIDE RECORDS SUMMARY | 2019-07-01 16:52 | XMS REPORT | Summary of Care ---
:1955 Author Organization [facility] Address [address] [address] Care Team Providers Name Role Phone Shruthi Zimmerman MD Primary Care Provider Reason for Visit Reason Comments Follow Up F/U left hip. Patient is not any better, Patient has fallen three times recently and has landed on her hips and shoulder. Patient just needs some relief someway or another. Encounter Details Date Type Department Care Team Description 06/07/2019 Office Visit [facility] - Lino Boyd MD Spinal stenosis of lumbar region with radiculopathy (Primary Dx); [place] [facility] Trochanteric bursitis of left hip 10 [facility] [place] [address] [place] [address] [place] [address] [phone] Allergies Active Allergy Reactions Severity Noted Date Comments Becca 10/21/2007 "all antihistimines cause hyperactivity" Antihistamines, CONSULTANT ELECTRONICS Reaction 02/29/2008 Diphenhydramine-Type Buspirone 10/21/2007 "buspar" Epinephrine Cardiac Reaction 03/19/2019 Morphine Dermatologic Reaction 06/13/2015 Rash and hives documented as of this encounter (statuses as of 06/07/2019) Medications Medication Sig Dispensed Refills Start Date [...] as of this encounter (statuses as of 06/07/2019) Active Problems Problem Noted Date Acute pain of right shoulder 05/25/2019 Traumatic complete tear of right rotator cuff 03/19/2019 Tear of right rotator cuff 02/24/2019 Overview: Added automatically from request for surgery [id number] Bipolar affective disorder 01/28/2019 Bursitis of left [...] as of this encounter (statuses as of 06/07/2019) Resolved Problems Problem Noted Date Resolved Date Pain in beck left 07/23/2012 12/09/2013 Ulcerative colitis 01/04/2008 03/13/2009 Overview: Reports that this was actually infectious colitis documented as of this encounter (statuses as of 06/07/2019) Immunizations Name Administration Dates Next Due Depo [...] Sign Reading Time Taken Comments Blood Pressure 127/81 06/07/2019 2:46 PM EDT Pulse 75 06/07/2019 2:46 PM EDT Temperature - - Respiratory Rate - - Oxygen Saturation - - Inhaled Oxygen Concentration - - Weight 91.2 kg (201 lb) 06/07/2019 2:46 PM EDT Height 170.2 cm (5' 7") 06/07/2019 2:46 PM EDT Body Mass Index 31.48 06/07/2019 2:46 PM EDT documented in this encounter Progress Notes Lino Boyd MD - 06/07/2019 2:45 PM EDT Name: Marbella Fraga : 1955 Date of Service: 06/07/2019 Chief Complaint Patient presents with Follow Up F/U left hip. Patient is not any better, Patient has fallen three times recently and has landed onher hips and shoulder. Patient just needs some relief someway or another. Patient reports that she fell several times over the weekend. Was lightheaded 1 of these times. Has been followed for these symptoms and had recent imaging which was negative. She developed return of left hip trochanteric bursitis symptoms as well as persistent left leg radicular symptoms. Fortunately, over the last few days the left hip symptoms have resolved almost completely. Her left radicular symptoms are intermittent and not bad on some days compared to others. She has done well with occasional lumbar epidurals. In addition, she has persistent bilateral lumbar pain which has been felt to be facet mediated. She would like to try another set of bilateral medial branch blocks lower lumbar. I had given her a booklet about possible stimulator and she asked for a second copy because she misplaced her first 1. Physical exam shows a fairly healthy-appearing woman in no acute distress. Alert and oriented. Back nontender. Left trochanteric bursa nontender. Straight leg raising negative. Grossly no focal motor or sensory deficit left lower extremity. Impression: As above. Plan: Bilateral medial branch blocks lower lumbar. ICD-9-CM ICD-10-CM 1. Spinal stenosis of lumbar region with radiculopathy 724.02 M48.061 724.4 M54.16 2. Trochanteric bursitis of left hip 726.5 M70.62 Author: Lino Boyd MD 06/07/2019 15:19 This record contains sections created with voice recognition software. It has been electronically signed. A reasonable attempt at proofreading has been made. Please call with any questions or corrections. documented in this encounter Plan of Treatment Date Type Specialty Care Team Description 06/08/2019 [facility] Lino Boyd MD [address] [place] [address] [phone] 06/22/2019 Office Visit Orthopedics Nathanael Malagon MD 10 [facility] [place] [address] [phone] Health Maintenance Due Date Last Done Comments [...] Problems Progress Blood Pressure Blood Pressure Hypertension 127/81 No Erasmo, < 140/90 (06/07/2019 Shruthi, 2:46 PM EDT) Note: Hypertension Care Plan Based [...] Educational Resources: National Heart, Lung, & Blood [place] http://nhlbi.nih.gov/hbp/index.html The DASH Diet Eating Plan http://www.nhlbi.nih.gov/health/health-topics/ topics/dash/ Academy of Nutrition & DIetetics http://eatright.org National Smoking Cessation Site http://smokefree.gov Blood Pressure < Blood Pressure 127/81 (06/07/2019 Shruthi Robles, 140/90 2:46 PM EDT) Note: This is an individualized [...] Weight loss vs. 18 mo Lifestyle 30.6 (06/07/2019 2:46 PM No Shruthi Zimmerman MD max (lbs) [...] goal. Keep a regular sleep schedule Lifestyle No Shruthi Zimmerman MD Note: This is an individualized lifestyle [...] filedocumented in this encounter Visit Diagnoses Diagnosis Spinal stenosis of lumbar region with radiculopathy - Primary Spinal stenosis, lumbar region, without neurogenic claudication Trochanteric bursitis of left hip Enthesopathy of hip region documented in this encounter Insurance Payer Benefit Plan / Subscriber ID Effective Dates Phone Address Type Group MEDICARE MEDICARE PART A xxxxxxxxxxx 2008-Present Medicare & B LIFETIME LIFETIME BENEFIT xxxxxxxxxxxx 2015-[facility] [employer] [phone] (Work) documented as of this encounter
--- OUTSIDE RECORDS SUMMARY | 2019-07-01 16:52 | XMS REPORT | Continuity of Care Document ---
:1955 External Reference #:[id number] Author Name Nic Thompson MD (transmitted by agent of provider Milena Mccann) Address [address] [place] [id number] Care Team Providers Name Role Phone Shruthi Zimmerman M.D. 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 Medicine Problems Active Problems Provider Date Microscopic hematuria Brandee Lau NP/PA Onset: 12/15/2013 Delay when starting to pass urine Andrew Robertson MD Onset: 08/31/2018 Urgent desire to urinate Andrew Robertson MD Onset: 06/22/2018 Elmer hematuria Andrew Robertson MD Onset: 12/18/2017 Social History Type Date Description Comments Sex Unknown Cigarette Use 08/30/2018 Patient smokes E-Cigarettes Tobacco Use Start: Unknown End: Unknown Former Cigarette Smoker Smoking Status Reviewed: 06/03/19 Former Cigarette Smoker Tobacco Use Start: Unknown Never Smoked Cigars Tobacco Use Start: Unknown Never Smoked A Pipe ETOH Use Patient denies alcohol use Allergies, Adverse Reactions, Alerts Active Allergies Reaction Severity Comments Date Epinephrine Urticaria Moderate 12/10/2013 Antihistamines unknown Severe 12/10/2013 Medications Active Medications SIG Qnty Indications Ordering Date Provider Clonazepam Unknown 1mg Tablets Lamotrigine Unknown 100mg Tablets Cymbalta 1 po qd 30caps Unknown 30mg Caps DR Part [place] Carbonate Unknown 300mg Tablets Hydrochlorothiazide 1 po qd 30tabs Unknown 25mg Tablets Gabapentin Unknown 300mg Capsules Omeprazole Unknown 40mg Capsules DR Levothyroxine Sodium Unknown 125mcg Tablets Probiotic 1 x a day Unknown Capsules Potassium Citrate ER Unknown 10Meq (1080 mg) Tablets ER Primidone 1 by mouth Unknown 50mg Tablets daily Rosuvastatin Calcium Take One Unknown 20mg Tablets Tablet By Mouth Daily Sucralfate Take One Unknown 1gm Tablets Tablet By Mouth Four Times Daily Before Meals And Nightly Ibuprofen Unknown Immunizations Description No Information Available Vital Signs Date Vital Result Comment 06/03/2019 3:03pm Height 67 inches 5'7" Weight 210.00 lb Weight 95.256 kg BMI (Body Mass Index) 32.9 kg/m2 BP Systolic 128 mmHg BP Diastolic 88 mmHg Heart Rate 64 /min Post Void Residual ml 55 Bladder 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, Indication: nocturia 09/24/2018 10:55am Post Void Residual ml 208 Results Test Date Facility Test Result H/L Range Note Laboratory test 06/03/2019 Laboratory [place] Urine Culture <pending> [place] [address] [phone] 230 Ua Routine 06/03/2019 [facility] Ua Glucose Negative REF TO DR ADDRESS ON ORDER FOR (086)- - Ua Protein Negative Ua Nitrite Negative Ua Leuko Moderate Ua Blood Moderate Ua Color Not Entered Ua Ketones Negative Ua Clarity Not Entered Ua Specific Dougherty 1.010 1.003-1.030 Ua PH 5.5 5.0-7.5 Ua Bilirubin Negative Ua Urobilinogen 0.2 E.U./dL 0.0-1.0 Procedures Date Code Description Status 06/03/2019 [id number] Bladder Scan, Post Voiding Residual Urine Completed 12/11/2017 [id number] Colonoscopy Completed 10/13/2016 [id number] Mammogram Completed Medical Devices Description No Information Available Encounters Type Date Location Provider Dx Diagnosis Office Visit 06/03/2019 [facility] Nic Thompson MD N39.41 Urge incontinence 3:[address]/ [facility] R33.9 Retention of urine, unspecified N81.11 Cystocele, midline Assessments Date Code Description Provider 06/03/2019 N39.41 Urge incontinence Nic Thompson MD 06/03/2019 R33.9 Retention of urine, unspecified Nic Thompson MD 06/03/2019 N81.11 Cystocele, midline Nic Thompson MD Plan of Treatment 06/03/2019 - Nic Thompson MDN39.41 Urge incontinenceComments:For whatever reason she is doing much better recently. Would not change her plan of care.R33.9 Retention of urine, unspecifiedComments:Emptying well [id number] Cystocele, midlineComments:She is asymptomatic. I explained to her that I believe her cystocele is helping her-she had stress incontinence before, but since her cystocele has progressed it is slightly kinking her urethra and providing her with continence. I would not operate on her unless she was very bothered by her bulge. Functional Status Description No Information Available Mental Status Description No Information Available Referrals Description No Information Available
--- OUTSIDE RECORDS SUMMARY | 2019-07-01 16:52 | XMS REPORT | Summary of Care ---
:1955 Author Organization [facility] Address [address] [place] [address] Care Team Providers Name Role Phone Shruthi Zimmerman MD Primary Care Provider Reason for Referral Durable Medical Equipment (Routine) Status Reason Specialty Diagnoses / Referred By Referred To Procedures Contact Contact Pending Review Diagnoses Dizziness after extension of neck Shruthi Zimmerman [place] [address] MRI/CAT/PET Scan (Routine) Status Reason Specialty Diagnoses / Referred By Referred To Procedures Contact Contact Authorized Diagnoses Dizziness after extension of neck [place], Procedures MR ANGIO NECK WO CONTRAST MD Shruthi [address] [place] [address] MRI/CAT/PET Scan (Routine) Status Reason Specialty Diagnoses / Referred By Referred To Procedures Contact Contact Authorized Diagnoses Dizziness after extension of neck [place]anova, Procedures MR BRAIN W AND WO CONTRAST MD Shruthi [address] [place] [address] Reason for Visit Reason Comments Other vertico / dizziness since she hit her head when she fell down the steps in 11/09/18- had cardiac tests- stress test , MRI, Xrays / no vomiting/ weak/ off balance - gotten worse in last couple of days Encounter Details Date Type Department Care Team Description 06/17/2019 Office Visit Mona Li Lucyanova, Dizziness after extension of neck (Primary Dx); Practice MD Shruthi Flu vaccine need [address] [place] [address] [place] [address] [phone] Allergies Active Allergy Reactions Severity Noted Date Comments Becca 10/21/2007 "all antihistimines cause hyperactivity" Antihistamines, [employer]ANT Reaction 02/29/2008 Diphenhydramine-Type Buspirone 10/21/2007 "buspar" Epinephrine Cardiac Reaction 03/19/2019 Morphine Dermatologic Reaction 06/13/2015 Rash and hives documented as of this encounter (statuses as of 06/17/2019) Medications Medication Sig Dispensed Refills Start Date [...] Reported on 06/17/2019 1:07 PM Rosuvastatin Calcium TAKE ONE 90 Tab 1 04/23/2019 Active (CRESTOR) 20 MG Oral TABLET BY TabIndications: High MOUTH DAILY triglycerides levothyroxine Take 1 Tab by 30 Tab 3 05/03/2019 Active (SYNTHROID) 137 MCG mouth BEFORE Oral Tab BREAKFAST. levothyroxine Take 1 Tab by 90 Tab 0 04/09/2019 06/17/20 Discontinued ( Dose (SYNTHROID) 125 MCG mouth BEFORE 19 Adjustment) Oral Tab BREAKFAST. documented as of this encounter (statuses as of 06/17/2019) Active Problems Problem Noted Date Acute pain of right shoulder 05/25/2019 Traumatic complete tear of right rotator cuff 03/19/2019 Tear of right rotator cuff 02/24/2019 Overview: Added automatically from request for surgery [id number] Bipolar affective disorder 01/28/2019 Bursitis of left [...] as of this encounter (statuses as of 06/17/2019) Resolved Problems Problem Noted Date Resolved Date Pain in beck left 07/23/2012 12/09/2013 Ulcerative colitis 01/04/2008 03/13/2009 Overview: Reports that this was actually infectious colitis documented as of this encounter (statuses as of 06/17/2019) Immunizations Name Administration Dates Next Due Depo [...] Sign Reading Time Taken Comments Blood Pressure 120/70 06/17/2019 1:01 PM EDT Pulse 65 06/17/2019 1:01 PM EDT Temperature 36.2 06/17/2019 1:01 PM EDT C (97.1 F) Respiratory Rate 20 06/17/2019 1:01 PM EDT Oxygen Saturation 96% 06/17/2019 1:01 PM EDT Inhaled Oxygen Concentration - - Weight 94.3 kg (208 lb) 06/17/2019 1:01 PM EDT Height 170.2 cm (5' 7") 06/17/2019 1:01 PM EDT Body Mass Index 32.58 06/17/2019 1:01 PM EDT documented in this encounter Patient Instructions Patient InstructionsShruthi Zimmerman MD - 06/17/2019 1:00 PM EDT1. Schedule MRI/MRA brain and neck 2. Follow up after the tests documented in this encounter Progress Notes Shruthi Zimmerman MD - 06/17/2019 1:00 PM EDT PATIENT: Marbella Fraga : 1955 DATE OF SERVICE: 06/17/2019 Subjective SUBJECTIVE: Marbella Fraga is a 64-y.o. female who presents follow up of positional dizziness that worsen after her recent fall. Positions that worsen symptoms: Extending neck. Associated ear symptoms: aural pressure, tinnitus Associated central nervous system symptoms: none. Recent infections: none. Head trauma: Multiple falls. Drug ingestion: Takes multiple medications that can cause dizziness including Neurontin, Lamictal, Klonopin, Veguita. Past Medical History: Diagnosis Date Bipolar affective disorder (HCC) BMI 36.0-36.9,adult Cervical dysplasia cryo- in 80s Colon polyp Adenoma DJD (degenerative joint disease) Fatty liver Fibromyalgia GERD (gastroesophageal reflux disease) Hemorrhoid Hypertension Hypothyroidism Ulcerative colitis history of, resolved Family History Problem Relation Age of Onset High Cholesterol Mother Hypertension Mother Arthritis Mother GI Mother Psychiatry Mother Thyroid Mother Heart Father High Cholesterol Father Alcohol/Drug Father Arthritis Father Psychiatry Father Stroke Father Breast Cancer Maternal Aunt Ovarian Cancer Maternal Aunt Psychiatry Sister GI Sister celiac Psychiatry Brother Heart Unknown [place], father, sister Hypertension Unknown mother Stroke Unknown father Asthma Daughter Allergies No family history Blood Disease No family history Cancer No family history Diabetes No family history Genetic No family history Genitourinary () No family history Seizures No family history Respiratory No family history Current Outpatient Medications Medication Sig acetaminophen (TYLENOL) 325 MG Oral Tab Take 650 mg by mouth EVERY FOUR HOURS NEEDED for Pain. Aspirin 81 MG Oral Tab Take 81 mg by mouth. clonazePAM (KLONOPIN) 2 MG Oral Tab Take 1 mg by mouth TWICE DAILY. duloxetine (CYMBALTA) 30 MG Oral CAPSULE ENTERIC COATED PARTICLES Take 60 mg by mouth DAILY. gabapentin (NEURONTIN) 300 MG Oral Cap TAKE 1 CAPSULE EVERY MORNING, 1 MIDDAY AND 3 AT BEDTIME MAXIMUM DAILY DOSE = 5 CAPSULES (Patient taking differently: Indications: one in am / 1 midday and now 2 pills at HS) hydrochlorothiazide (HCTZ, ORETIC) 25 MG Oral Tab TAKE ONE TABLET BY MOUTH DAILY hydrocortisone (HYTONE) 2.5 % Apply externally Cream 1 Appl by Topical route TWICE DAILY. Lactobacillus Rhamnosus, GG, (CULTURELLE) Oral Cap Take 1 Cap by mouth DAILY. lamotrigine (LAMICTAL) 100 MG Oral Tab Take 150 mg by mouth DAILY. Indications: taking 150mg levothyroxine (SYNTHROID) 137 MCG Oral Tab Take 1 Tab by mouth BEFORE BREAKFAST. lithium 300 MG Oral Tab Take 1 Tab by mouth TWICE DAILY. meclizine (ANTIVERT) 25 MG Oral Tab Take 25 mg by mouth THREE TIMES DAILY NEEDED for dizziness/vertigo. Omeprazole 40 MG Oral CAPSULE DELAYED RELEASE Take 1 Cap by mouth TWICE DAILY. ondansetron (ZOFRAN ODT) 8 MG Oral TABLET DISPERSIBLE Take 1 Tab by mouth EVERY EIGHT HOURS NEEDED for nausea. potassium chloride (K-DUR) 20 MEQ Oral Tab CR Take 1 Tab by mouth DAILY. primidone (MYSOLINE) 50 MG Oral Tab Take 50 mg by mouth EVERY BEDTIME. Rosuvastatin Calcium (CRESTOR) 20 MG Oral Tab TAKE ONE TABLET BY MOUTH DAILY sucralfate (CARAFATE) 1 GM Oral Tab TAKE ONE TABLET BY MOUTH FOUR TIMES DAILY BEFORE MEALS AND NIGHTLY No current facility-administered medications for this visit. Allergies Allergen Reactions Becca "all antihistimines cause hyperactivity" Antihistamines, Diphenhydramine-Type F[employer]ANT Reaction Buspirone "buspar" Epinephrine Cardiac Reaction Morphine Dermatologic Reaction Rash and hives Social History Socioeconomic History Marital status: Spouse name: Not on file Number of children: Not on file Years of education: Not on file Highest education level: Not on file Occupational History Not on file Social Needs Financial resource strain: Not on file Food insecurity: Worry: Not on file Inability: Not on file Transportation needs: Medical: Not on file Non-medical: Not on file Tobacco Use Smoking status: Former Smoker Packs/day: 0.00 Years: 29.00 Pack years: 0.00 Last attempt to quit: 01/12/2016 Years since quittin.4 Smokeless tobacco: Never Used Tobacco comment: smokes E-Cig now Substance and Sexual Activity Alcohol use: No Alcohol/week: 0.0 standard drinks Drug use: No Sexual activity: Yes Lifestyle Physical activity: Days per week: Not on file Minutes per session: Not on file Stress: Not on file Relationships Social connections: Talks on phone: Not on file Gets together: Not on file Attends rastafari service: Not on file Active member of club or organization: Not on file Attends meetings of clubs or organizations: Not on file Relationship status: Not on file Intimate partner violence: Fear of current or ex partner: Not on file Emotionally abused: Not on file Physically abused: Not on file Forced sexual activity: Not on file Other Topics Concern Back Care Not Asked Bike Helmet Not Asked Blood Transfusions Not Asked Caffeine Concern Not Asked Exercise Not Asked Hobby Hazards Not Asked International Travel Not Asked Service Not Asked Occupational Exposure Not Asked Seat Belt Not Asked Self-Exams Not Asked Sleep Concern Not Asked Special Diet Not Asked Stress Concern Not Asked Weight Concern Not Asked Social History Narrative Lives in [place] with and daughter. On disability. Dogs and guinea pig in home. Smokes ppd. Objective OBJECTIVE: BP 120/70 (BP Location: Right arm, Patient Position: Sitting) | Pulse 65 | Temp 97.1 F (36.2 C) (Tympanic) | Resp 20 | Ht 5' 7" (1.702 m) | Wt 208 lb (94.3 kg) | SpO2 96% | BMI 32.58 kg/m GENERAL: Alert, anxious. HEAD: normocephalic, atraumatic without lesions or tenderness. EARS: normal appearance, normal tympanic membrane's bilaterally. MOUTH: lips, mucosa, and tongue normal: teeth and gums normal. LUNGS: clear to auscultation bilaterally. HEART: regular rate and rhythm, S1, S2 normal, no murmur, click, rub or gallop. NEUROLOGICAL: WONG cranial nerves intact reflexes normal and symmetric sensation grossly normal finger to nose positive on the R VERTIGO SPECIFIC: Nystagmus: none Standard Romberg test is positive ICD-9-CM ICD-10-CM 1. Dizziness after extension of neck 780.4 R42 MR BRAIN W AND WO CONTRAST Chronic. Worsen after fall with head injury MR ANGIO NECK WO CONTRAST Consider comprehensive audiology evaluation and PT RENAL FUNCTION PANEL DME ERIC (AMB) 2. Flu vaccine need V04.81 Z23 WI FLU VACCINE PRES FREE 6MOS+ Patient Instructions 1. Schedule MRI/MRA brain and neck 2. Follow up after the tests Author: Shruthi Zimmerman MD 06/17/2019 13:44 documented in this encounter Plan of Treatment Date Type Specialty Care Team Description 06/22/2019 Office Visit Orthopedics Nathanael Malagon MD [address] [place] [address] [phone] Name Type Priority Associated Diagnoses Date/Time RENAL FUNCTION PANEL Lab Routine Dizziness after extension 06/17/2019 1: 54 PM EDT of neck Name Type Priority Associated Diagnoses Order Schedule MR BRAIN W AND WO Imaging Routine Dizziness after Expected: 06/17/2019, CONTRAST extension of neck Expires: 06/16/2020 MR ANGIO NECK WO Imaging Routine Dizziness after Expected: 06/17/2019, CONTRAST extension of neck Expires: 06/16/2020 Name Type Priority Associated Diagnoses Order Schedule DME WALKER (AMB) Referral Routine Dizziness after extension of Ordered: 02/2019 neck Health Maintenance Due Date Last Done Comments [...] Problems Progress Blood Pressure Blood Pressure Hypertension 120/70 No Erasmo, < 140/90 (06/17/2019 Shruthi, 1:01 PM EDT) Note: Hypertension Care Plan Based [...] Educational Resources: National Heart, Lung, & Blood [place] http://nhlbi.nih.gov/hbp/index.html The DASH Diet Eating Plan http://www.nhlbi.nih.gov/health/health-topics/ topics/dash/ Academy of Nutrition & DIetetics http://eatright.org National Smoking Cessation Site http://smokefree.gov Blood Pressure < Blood Pressure 120/70 (06/17/2019 No Shruthi Zimmerman, 140/90 1:01 PM EDT) Note: This is an individualized treatment (blood pressure) goal for Marbella Fraga: Displayed above (on the left) is your goal for blood pressure control. Your most recent blood pressure is also shown above, on the right. You should try to achieve blood pressures that are lower than your goal listed above (on the left). Depression screen Depression 10 (03/17/2019 3:38 PM Shruthi Robles, (PHQ-9) total score < 5 EDT) Note: [...] quit:no Discussed smoking cessation plan according to [facility] guidelines:counseled patient on the risks of tobacco [...] Weight loss vs. 18 mo Lifestyle 23.6 (06/17/2019 1:01 PM Shruthi Robles MD max (lbs) >= [...] filedocumented in this encounter Visit Diagnoses Diagnosis Dizziness after extension of neck - Primary Flu vaccine need Need for prophylactic vaccination and inoculation against influenza documented in this encounter Insurance Payer Benefit Plan / Subscriber ID Effective Dates Phone Address Type Group MEDICARE MEDICARE PART A xxxxxxxxxxx 2008-Present Medicare & B LIFETIME LIFETIME BENEFIT xxxxxxxxxxxx 2015-[facility] [employer] [phone] (Work) documented as of this encounter
[2019-07-01 17:39] VITALS: BP 115/55
--- NOTE | 2019-07-01 18:20 | UC ---
Lower Extremity/Ankle HPI - HPI Summary HPI Summary: Left fifth digit of foot injured today at 13:30 when she stubbed it against furniture, avulsing the nail and a flap of skin adjacent. Takes baby aspriin for primary prevention, had difficulty stopping the bleeding. - History of Current Complaint Chief Complaint: UCLowerExtremity Stated Complaint: L LITTLE TOE INJ Time Seen by Provider: 07/01/19 18:09 Hx Obtained From: Patient Hx Last Menstrual Period: n/a Onset/Duration: Sudden Onset, Lasting Hours Severity Initially: Moderate Severity Currently: Moderate Pain Intensity: 7 Aggravating Factor(s): Standing, Ambulation Alleviating Factor(s): Rest, Elevation, Other - pressure dressing. Able to Bear Weight: Yes - Risk Factors Gout Risk Factors: Age Over 40 DVT Risk Factors: Negative Septic Arthritis Risk Factor: Negative - Allergies/Home Medications Allergies/Adverse Reactions: Allergies Allergy/AdvReac Type Severity Reaction Status Date / Time buspirone [From BuSpar] Allergy Unknown Verified 07/01/19 17:28 Reaction Details cephalexin Allergy Unknown Verified 07/01/19 17:28 Reaction Details epinephrine Allergy Shortness Verified 07/01/19 17:28 of Breath antihistamines Allergy See Comment Uncoded 07/01/19 17:28 Home Medications: Home Medications Levothyroxine TAB* [Synthroid TAB*] 137 mcg PO DAILY 07/01/19 [History Confirmed 07/01/19] PMH/Surg Hx/FS Hx/Imm Hx Endocrine History: Hypothyroidism Cardiovascular History: Hypertension GI/ History: Gastroesophageal Reflux Psychological History: Bipolar Disorder - Surgical History Surgical History: Yes Surgery Procedure, Year, and Place: LENORE KNEE REPLACEMENT, TONSILLECTOMY. D&C. L carpal tunnel surgery. cataracts. RIGHT SHOULDER SURGERY - Family History Known Family History: Positive: Cardiac Disease, Hypertension - Social History Occupation: Disabled Lives: With Family Alcohol Use: None Substance Use Type: None Smoking Status (MU): Current Every Day Smoker Type: eCigarettes Amount Used/How Often: daily Length of Time of Smoking/Using Tobacco: 35+ years Have You Smoked in the Last Year: Yes Household Exposure Type: Cigarettes - Immunization History Most Recent Influenza Vaccination: 2012 Most Recent Tetanus Shot: ALLERGIC- SEE COMENT IN ALLERGIES Review of Systems All Other Systems Reviewed And Are Negative: Yes Skin: Positive: Other - nail avulsion Cardiovascular: Positive: Other - takes aspirin, HCTZ, statin Neurovascular: Positive: Negative Musculoskeletal: Positive: Arthralgia Is Patient Immunocompromised?: No Physical Exam Triage Information Reviewed: Yes Appearance: Ill-Appearing, Pain Distress - mild to moderate., Obese Vital Signs: Initial Vital Signs Temp 98.3 F 07/01/19 17:32 Pulse 69 07/01/19 17:32 Resp 15 07/01/19 17:32 BP 115/55 07/01/19 17:32 Pulse Ox 100 07/01/19 17:32 ENT: Positive: Normal ENT inspection Respiratory: Positive: Lungs clear, Normal breath sounds Cardiovascular: Positive: RRR, No Murmur Musculoskeletal: Positive: ROM Limited @ - left fifth PIP joint of foot Skin: Positive: Other - avulsion of left fifth nail of foot, with skin avulsion proximal to the nail fold over 6 x 6 mm area. + ecchymosis of the toe and forefoot. Diagnostics - Radiology No standard instances Radiology Interpretation Completed By: ED Physician Summary of Radiographic Findings: transverse non-displaced fracture of the distal phalanx of the fifth digit left foot. Lower Extremity Course/Dx - Course Course Of Treatment: begin clindamysin for prevention of infection. A non-stick dressing has been applied. Please change the dressing daily, cleanse with soap and water, and redress. Ensure that you use a firm supportive shoe following the use of the surgical shoe. - Differential Dx/Diagnosis Differential Diagnosis/HQI/PQRI: Other - nail avulsion, fracture of toe. Provider Diagnosis: Nail avulsion of toe, Open fracture of fifth toe of left foot Discharge ED - Sign-Out/Discharge Documenting (check all that apply): Patient Departure All imaging exams completed and their final reports reviewed: No - Discharge Plan Condition: Stable Disposition: HOME Prescriptions: Clindamycin Cap(NF) [Clindamycin Cap 300 mg Cap(NF)] 300 mg PO TID #21 cap Patient Education Materials: Nail Avulsion (ED), Toe Fracture (ED) Referrals: Shruthi Zimmerman MD [Primary Care Provider] - Additional Instructions: Ensure that you change the dressing daily and wash the toe with warm water and soap; rinse and apply a non=stick dressing. The radiologist will read the xray tomorrow morning, and if there is a difference in reading you will be informed. Use clindamycin three times daily to decrease the risk of infection following this injury. - Billing Disposition and Condition Condition: STABLE Disposition: Home
--- NOTE | 2019-07-02 08:21 | UC ---
- Progress Note Progress Note: Patient Name: ARVIND GREGORIO Medical Record#: [id number] Ordering Physician: Brandee Houston MD Acct.#: [id number] : 1955 Age: 64 Sex: F Location: URGENT [facility] Exam Date: 07/01/191823 ADM Status: [facility] ER Order Information: TOE LEFT 5TH Accession Number: [id number] CPT: 52983 INDICATION: Left fifth toe injury. TECHNIQUE: 3 views of the left fifth toe were obtained. FINDINGS: There is soft tissue swelling in the left fifth toe. There appears be transverse fracture through the distal aspect of the middle phalanx which appears nondisplaced. IMPRESSION: TRANSVERSE NONDISPLACED FRACTURE OF THE MIDDLE PHALANX. R0 Preliminary Imaging Read R0 <Electronically signed by Nikos Steen MD in OV> 07/02/19707 Dictated By: Nikos Steen MD Dictated Date/Time: 07/02/19705 Transcribed Date/Time: 07/02/19705 Copy to: CC:Brandee Houston MD; Shruthi Zimmerman MD Imaging - [facility] Imaging - [facility] [address] [place] [address] ph ([phone]) ph ([phone]) ph ([phone]) This report is only to be considered final once signed by the Provider(s) as displayed in the "<Electronically Signed by >" field (s). Absence of a signature indicates the report is in a draft status and still needs to be finalized. In the event this document was created by someone other than the signing Provider, the individual initiating the document will be listed in the "Entered by:" or "Dictated by:" turner. 1 of 1 Course/Dx - Diagnoses Provider Diagnoses: Nail avulsion of toe, Open fracture of fifth toe of left foot Discharge ED - Sign-Out/Discharge Documenting (check all that apply): Post-Discharge Follow Up All imaging exams completed and their final reports reviewed: Yes - Discharge Plan Condition: Stable Disposition: HOME Prescriptions: Clindamycin Cap(NF) [Clindamycin Cap 300 mg Cap(NF)] 300 mg PO TID #21 cap Patient Education Materials: Toe Fracture (ED), Nail Avulsion (ED) Referrals: Shruthi Zimmerman MD [Primary Care Provider] - Additional Instructions: Ensure that you change the dressing daily and wash the toe with warm water and soap; rinse and apply a non=stick dressing. The radiologist will read the xray tomorrow morning, and if there is a difference in reading you will be informed. Use clindamycin three times daily to decrease the risk of infection following this injury. - Billing Disposition and Condition Condition: STABLE Disposition: Home
== END 2019-07-01 19:27 | disposition home or self-care (01) ==
LOC: UCCORT 16:16
DX: S91.205A Unspecified open wound of left lesser toe(s) with damage to nail, initial encounter (principal); S92.525A Nondisplaced fracture of middle phalanx of left lesser toe(s), initial encounter for closed fracture; W22.03XA Walked into furniture, initial encounter; Y92.9 Unspecified place or not applicable; I10 Essential (primary) hypertension; E03.9 Hypothyroidism, unspecified; F17.290 Nicotine dependence, other tobacco product, uncomplicated
CPT/HCPCS: 99213; G0463

== ENCOUNTER 2019-07-16 14:04 | Emergency (ER) | payer MEDICARE, OTHER ==
--- OUTSIDE RECORDS SUMMARY | 2019-07-16 14:12 | XMS REPORT | Continuity of Care Document ---
:1955 External Reference #:[id number] Author Name Bessy Gonzalez Care Team Providers Name Role Phone Shruthi Zimmerman MD - Family Care Team Information Associate Programmer [phone] Medicine Problems Active Problems Provider Date Mixed hyperlipidemia Gisselle White, [facility] Onset: 12/29/2013 Social History Type Date Description Comments Sex Unknown Tobacco Use Start: Unknown End: Quit but uses the E cig Unknown Smoking Status Reviewed: 11/24/18 Quit but uses the E cig ETOH Use Denies alcohol use Recreational Drug Use Denies Drug Use Allergies, Adverse Reactions, Alerts Active Allergies Reaction Severity Comments Date Epinephrine sob, feeling of impending doom 12/29/2013 Medications Active Medications SIG Qnty Indications Ordering Date Provider Gabapentin 1 in am , 1 in 42caps Unknown 300mg Capsules afternoon and 2 at night Levothyroxine Sodium 1 po qd Unknown 125mcg Tablets Hydrochlorothiazide 1 po qd 90tabs Unknown 12.5mg Tablets Omeprazole 1 po in am , 1po 90caps Unknown 40mg Capsules DR in pm Lamotrigine 2 po qd Unknown 100mg Tablets Cymbalta 2 po qd Unknown 30mg Caps DR Part [place] Carbonate 1 po in am , 1 Unknown 300mg Capsules po in pm Clonazepam 1 in am , 1 in Unknown 1mg Tablets pm Aspir-Low daily Unknown 81mg Tablets DR Primidone 1 by mouth every Unknown 50mg Tablets day Potassium Chloride Simi ER 1 by mouth every Unknown 20Meq day Tablets ER Sucralfate 4 times daily Unknown 1gm Tablets Rosuvastatin Calcium take 1 tablet by Unknown 10mg Tablets mouth every evening Medications Administered in Office Medication SIG Qnty Indications Ordering Provider Date Methylprednisolone acetate Gisselle White, 02/14/2014 (Depomedrol) 80mg injection RPAC Injection Immunizations Description No Information Available Vital Signs Date Vital Result Comment 01/13/2019 1:56pm BP Systolic Sitting Left Arm 118 mmHg BP Diastolic Sitting Left Arm 76 mmHg Heart Rate 69 /min Respiratory Rate 18 /min Height 66 inches 5'6" Weight 211.00 lb BMI (Body Mass Index) 34.1 kg/m2 BSA (Body Surface Area) 2.05 m2 [place] body weight in kilograms 59 kg O2 % BldC Oximetry 98 % Ora 11/24/2018 10:00am BP Systolic Sitting Left Arm 130 mmHg BP Diastolic Sitting Left Arm 76 mmHg Heart Rate 67 /min Respiratory Rate 16 /min Height 66 inches 5'6" Weight 207.00 lb BMI (Body Mass Index) 33.4 kg/m2 BSA (Body Surface Area) 2.03 m2 [place] body weight in kilograms 59 kg O2 Saturation Level with Exercise 95 % Results Description No Information Available Procedures Description No Information Available Medical Devices Description No Information Available Encounters Description No Information Available Assessments Description No Information Available Plan of Treatment 01/13/2019 - Marium Foley, PAR06.02 Shortness of breathComments:Monitor. Recommend regular physical activity and gradual weight loss.R94.31 Abnormal electrocardiogram [ECG] [EKG]Comments:Monitor.R55 Syncope and collapseComments: No further cardiac testing indicated at this time. She will call with reoccurrence of symptoms.E78.5 Hyperlipidemia, unspecifiedComments:Followed by PCP.AllFollow up:6 months Functional Status Functional Condition Comment Date Status Independent with all ADL's Active Mental Status Description No Information Available Referrals Description No Information Available
--- OUTSIDE RECORDS SUMMARY | 2019-07-16 14:12 | XMS REPORT | Continuity of Care Document ---
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 Medicine Problems Active Problems Provider Date Mixed hyperlipidemia Gisselle White, [facility] Onset: 12/29/2013 Social History Type Date Description [...] 300mg Capsules afternoon and 2 at night Hydrochlorothiazide 1 po qd 90tabs Unknown 12.5mg Tablets Omeprazole 1 po in am , 1po 90caps Unknown 40mg Capsules DR in pm Lamotrigine 2 po qd Unknown 100mg Tablets Cymbalta 2 po qd Unknown 30mg Caps DR Part [place] Carbonate 1 po in am , 1 Unknown 300mg Capsules po in pm Clonazepam 1 in am , 1 in Unknown 1mg Tablets pm Aspir-Low daily Unknown 81mg Tablets DR Primidone 1 by mouth every Unknown 50mg Tablets day Sucralfate 4 times daily Unknown 1gm Tablets Rosuvastatin Calcium take 1 tablet by Unknown 10mg Tablets mouth every evening Levothyroxine Sodium 1 by mouth every Unknown 137mcg day Tablets Potassium Chloride Simi ER 3 by mouth every Unknown 10Meq day Tablets ER Clindamycin HCL Take 1 Capsule Unknown 300mg Capsules By Mouth Three Times Daily Medications Administered in Office Medication SIG Qnty Indications Ordering Provider Date Methylprednisolone acetate Gisselle White, 02/14/2014 (Depomedrol) 80mg injection RPAC Injection Immunizations Description No Information Available Vital Signs Date Vital Result Comment 07/16/2019 11:00am BP Systolic Sitting Left Arm 120 mmHg BP Diastolic Sitting Left Arm 70 mmHg Heart Rate 65 /min Respiratory Rate 18 /min Height 66 inches 5'6" Weight 206.00 lb BMI (Body Mass Index) 33.2 kg/m2 BSA (Body Surface Area) 2.03 m2 [place] body weight in kilograms 59 kg O2 % BldC Oximetry 95 % 01/13/2019 1:56pm BP Systolic Sitting Left Arm 118 mmHg BP Diastolic Sitting Left Arm 76 mmHg Heart Rate 69 /min Respiratory Rate 18 /min Height 66 inches 5'6" Weight 211.00 lb BMI (Body Mass Index) 34.1 kg/m2 BSA (Body Surface Area) 2.05 m2 [place] body weight in kilograms 59 kg O2 % BldC Oximetry 98 % Ora Results Description No Information Available Procedures Description No Information Available Medical Devices Description No Information Available Encounters Type Date Location Provider Dx Diagnosis Office Visit 07/16/2019 Cardiology Office Marium Foley R55 Syncope and 11:00a PAUL Kaur collapse E78.5 Hyperlipidemia, unspecified R42 Dizziness and giddiness I10 Essential (primary) hypertension Assessments Date Code Description Provider 07/16/2019 R55 Syncope and collapse Marium Foley PA 07/16/2019 E78.5 Hyperlipidemia, unspecified Marium Foley PA 07/16/2019 R42 Dizziness and giddiness Marium Foley PA 07/16/2019 I10 Essential (primary) hypertension Marium Foley PA Plan of Treatment 07/16/2019 - Marium Foley, PAR55 Syncope and collapseComments:No further cardiac testing indicated at this time.E78.5 Hyperlipidemia, unspecifiedComments :Followed by PCP.R42 Dizziness and giddinessComments:Monitor.I10 Essential ( primary) hypertensionComments:No changes.AllFollow up:We will see the patient on a PRN basis from this point. We would be happy to see them again as deemed necessary. Functional Status Functional Condition Comment Date Status Independent with all ADL's Active Mental Status Description No Information Available Referrals Description No Information Available
[2019-07-16 14:35] VITALS: BP 121/58
--- NOTE | 2019-07-16 14:42 | UC ---
Skin Complaint HPI - HPI Summary HPI Summary: 64-year-old female who stubbed her left pinky toe on July 01 avulsing the nail. She was found to have a nondisplaced fracture present and was started on clindamycin. Since then she has been soaking the toe. She is here today for a recheck but also it is more swollen. She states it has continued to be mildly erythematous and tender however she states she continues to have pain in the toe because her dogs are very active and continually hit her foot and toe causing her pain. She also stated the postop shoe that was given to her on July 01 was not adequate because it was too big. No red streaking and no fever or chills. She has not followed up with an orthopedist. - History of Current Complaint Chief Complaint: UCLowerExtremity Time Seen by Provider: 07/16/19 14:27 Stated Complaint: LT PINKY TOE RE-CHECK Hx Obtained From: Patient Hx Last Menstrual Period: n/a ?: No Onset/Duration: Gradual Onset Skin Exposure Onset/Duration: Days Ago Timing: Constant Onset Severity: Mild Current Severity: Moderate Pain Intensity: 2 Location: Other - Left fifth toe. Character: Swelling, Redness, Painful Aggravating Factor(s): Touch Alleviating Factor(s): Nothing Associated Signs & Symptoms: Positive: Tenderness Related History: Trauma - Patient stubbed her toe on July 01. - Allergy/Home Medications Allergies/Adverse Reactions: Allergies Allergy/AdvReac Type Severity Reaction Status Date / Time buspirone [From BuSpar] Allergy Unknown Verified 07/01/19 17:28 Reaction Details cephalexin Allergy Unknown Verified 07/01/19 17:28 Reaction Details epinephrine Allergy Shortness Verified 07/01/19 17:28 of Breath antihistamines Allergy See Comment Uncoded 07/01/19 17:28 PMH/Surg Hx/FS Hx/Imm Hx Previously Healthy: Yes Cardiovascular History: Hypertension Psychological History: Bipolar Disorder - Surgical History Surgical History: Yes Surgery Procedure, Year, and Place: [facility] KNEE REPLACEMENT, TONSILLECTOMY. D&C. L carpal tunnel surgery. cataracts. RIGHT SHOULDER SURGERY - Family History Known Family History: Positive: Cardiac Disease, Hypertension - Social History Alcohol Use: None Substance Use Type: None Smoking Status (MU): Current Every Day Smoker Type: eCigarettes Amount Used/How Often: daily Length of Time of Smoking/Using Tobacco: 35+ years Have You Smoked in the Last Year: Yes Household Exposure Type: Cigarettes - Immunization History Most Recent Influenza Vaccination: 2012 Most Recent Tetanus Shot: ALLERGIC- SEE COMENT IN ALLERGIES Review of Systems All Other Systems Reviewed And Are Negative: Yes Skin: Positive: Other - Left fifth toe warm, mildly erythematous, tender and swollen however patient states that has not worsened over the past few days. Pain level has worsened because her dogs continue to hit her toe and foot or she hits it at night when she is in bed. Patient has completed her clindamycin. The nail itself was avulsed on July 01 when she injured it. That area is now scabbed. Motor: Positive: Decreased ROM Musculoskeletal: Positive: Decreased ROM - Decreased range of motion due to swelling, which patient states is the same as it has been Physical Exam Triage Information Reviewed: Yes Appearance: Well-Appearing, No Pain Distress, Well-Nourished Vital Signs: Initial Vital Signs Temp 97.2 F 07/16/19 14:25 Pulse 67 07/16/19 14:25 Resp 18 07/16/19 14:25 BP 121/58 07/16/19 14:25 Pulse Ox 96 07/16/19 14:25 Vital Signs Reviewed: Yes Musculoskeletal: Positive: Strength Intact, ROM Intact, Other: - The left fifth toe has a scab where the nail avulsed on July 01, 2019. There is some mild erythema to the area but no streaking. It is tender on palpation. Good peripheral pulses neuro sensation and capillary refill. Neurological: Positive: Alert, Muscle Tone Normal Psychological Exam: Normal Skin: Positive: Other - See above notes. Area rechecked by Dr. Houston...not felt to be an abscess. Course/Dx - Course Course Of Treatment: The nurse was able to apply a bulky dressing to the patient's foot which the patient was happy about. We tried a cam boot and a postop shoe which she did not like. She had not followed up with an orthopedist and was advised to do so early next week for further care. After consultation with Dr. Houston and Dr. Houston's exam of the toe, it's felt the patient does not need an antibiotic at this point in time. She may continue the warm water soaks. The patient was discharged ambulatory. - Diagnoses Provider Diagnosis: Encounter for wound re-check Discharge ED - Sign-Out/Discharge Documenting (check all that apply): Patient Departure All imaging exams completed and their final reports reviewed: No Studies - Discharge Plan Condition: Fair Disposition: HOME Patient Education Materials: Toe Fracture (ED), Cellulitis (DC) Referrals: Kirit Mays MD [Medical Doctor] - Shruthi Zimmerman MD [Primary Care Provider] - Additional Instructions: Continue the warm water soaks 4-6 times a day. Wear the shoe/boot for comfort. Tylenol for pain. Definite follow-up with the orthopedist early next week for recheck. At this point time he did not need any further antibiotics. Take Tylenol every 4 hours for pain control. Elevate as much as possible. - Billing Disposition and Condition Condition: FAIR Disposition: Home
== END 2019-07-16 15:37 | disposition home or self-care (01) ==
LOC: UCCORT 14:04
DX: S92.505D Nondisplaced unspecified fracture of left lesser toe(s), subsequent encounter for fracture with routine healing (principal); I10 Essential (primary) hypertension; F17.290 Nicotine dependence, other tobacco product, uncomplicated; Z88.8 Allergy status to other drugs, medicaments and biological substances; Z88.1 Allergy status to other antibiotic agents; X58.XXXD Exposure to other specified factors, subsequent encounter
CPT/HCPCS: 99213; G0463

== ENCOUNTER 2019-11-14 08:17 | Emergency (ER) | payer MEDICARE, OTHER ==
--- OUTSIDE RECORDS SUMMARY | 2019-11-14 08:23 | XMS REPORT | Summary of Care ---
:1955 Author Organization [facility] Address [address] [place] [place] [address] Care Team Providers Name Role Phone Shruthi Zimmerman Primary Care Provider Reason for Visit Reason Comments Follow Up acute gastroenteritis , all over gassy and thinks ulcer is acting Encounter Details Date Type Department Care Team Description 10/04/2019 Office Visit [facility] Erasmo, Diarrhea, unspecified type (Primary Dx); Practice MD Shruthi Hypokalemia; [address] Hypothyroidism, unspecified type [place], [place] [id number] [place] [address] [phone] Allergies Active Allergy Reactions Severity Noted Date Comments Becca 10/21/2007 "all antihistimines cause hyperactivity" Antihistamines, FIBRE TECHNOLOGIST Reaction 02/29/2008 Diphenhydramine-Type Buspirone 10/21/2007 "buspar" Epinephrine Cardiac Reaction 03/19/2019 Morphine Dermatologic Reaction 06/13/2015 Rash and hives documented as of this encounter (statuses as of 10/04/2019) Medications Medication Sig Dispensed Refills Start Date End Date Status lamotrigine (LAMICTAL) Take 150 mg by 0 Active 100 MG Oral mouth DAILY. TabIndications: taking Indications: 150mg taking 150mg lithium 300 MG Oral Tab Take 1 Tab by 10 Tab 0 05/22/2010 Active mouth TWICE DAILY. Aspirin 81 MG Oral Tab Take 81 mg by 0 Active mouth. Lactobacillus Take 1 Cap by 0 Active Rhamnosus, GG, mouth DAILY. (CULTURELLE) Oral Cap clonazePAM (KLONOPIN) 2 Take 1 mg by 90 Tab 0 05/30/2015 Active MG Oral Tab mouth TWICE DAILY. duloxetine (CYMBALTA) Take 60 mg by 60 Cap 0 05/30/2015 Active 30 MG Oral CAPSULE mouth DAILY. ENTERIC COATED PARTICLES acetaminophen (TYLENOL) Take 650 mg by 0 Active 325 MG Oral Tab mouth EVERY FOUR HOURS NEEDED for Pain. primidone (MYSOLINE) 50 Take 50 mg by 0 Active MG Oral Tab mouth EVERY BEDTIME. gabapentin (NEURONTIN) TAKE 1 CAPSULE 450 Cap 1 04/23/2019 Active 300 MG Oral Cap EVERY MORNING, 1 MIDDAY AND 3 AT BEDTIME MAXIMUM DAILY DOSE = 5 CAPSULES Additional information Patient taking differently: Indications: one in am / 1 midday and now 2 pills at HS, Reported on 06/17/2019 1:07 PM Rosuvastatin Calcium (CRESTOR) 20 TAKE ONE TABLET BY 90 Tab 1 04/23/2019 Active MG Oral TabIndications: High MOUTH DAILY triglycerides levothyroxine (SYNTHROID) 137 MCG Take 1 Tab by mouth 30 Tab 3 05/03/2019 Active Oral Tab BEFORE BREAKFAST. Omeprazole 40 MG Oral CAPSULE Take 1 Cap by mouth 180 Cap 1 06/22/2019 Active DELAYED RELEASE TWICE DAILY. hydrochlorothiazide (HCTZ, ORETIC) TAKE ONE TABLET BY 90 Tab 1 08/09/2019 Active 25 MG Oral Tab MOUTH DAILY sucralfate (CARAFATE) 1 GM Oral TAKE ONE TABLET BY 120 Tab 5 08/19/2019 Active TabIndications: Gastroesophageal MOUTH FOUR TIMES reflux disease, esophagitis DAILY BEFORE MEALS presence not specified AND NIGHTLY potassium chloride (K-DUR) 10 MEQ Take 3 Tabs by mouth 90 Tab 1 09/20/2019 Active Oral Tab CR DAILY. Simethicone (GAS-X EXTRA STRENGTH Take by mouth DAILY 0 Active PO) 0700 on Empty Stomach. documented as of this encounter (statuses as of 10/04/2019) Active Problems Problem Noted Date Lumbar radiculopathy, chronic 07/19/2019 Acute pain of right shoulder 05/25/2019 Traumatic complete tear of right rotator cuff 03/19/2019 Tear of right rotator cuff 02/24/2019 Overview: Added automatically from request for surgery [id number] Bipolar affective disorder 01/28/2019 Bursitis of left [...] as of this encounter (statuses as of 10/04/2019) Resolved Problems Problem Noted Date Resolved Date Pain in beck left 07/23/2012 12/09/2013 Ulcerative colitis 01/04/2008 03/13/2009 Overview: Reports that this was actually infectious colitis documented as of this encounter (statuses as of 10/04/2019) Immunizations Name Administration Dates Next Due Influenza (IM) Preservative Free 06/17/2019, 06/19/2018, 08/12/2017, 06/18/2016, 08/17/2015, 08/16/2014, 08/19/2013, 10/27/2012, 08/17/2010, 08/02/2008 Influenza Vaccine Whole 08/09/2009, 08/18/2007, 07/23/2006, 08/12/2005, 08/02/2003 TDAP Vaccine 02/02/2019 documented as of this encounter Social History [...] Sign Reading Time Taken Comments Blood Pressure 112/60 10/04/2019 8:21 AM EST Pulse 66 10/04/2019 8:21 AM EST Temperature 36.7 10/04/2019 8:21 AM EST C (98 F) Respiratory Rate - - Oxygen Saturation 97% 10/04/2019 8:21 AM EST Inhaled Oxygen Concentration - - Weight 92.1 kg (203 lb) 10/04/2019 8:21 AM EST Height 170.2 cm (5' 7") 10/04/2019 8:21 AM EST Body Mass Index 31.79 10/04/2019 8:21 AM EST documented in this encounter Patient Instructions Patient InstructionsShruthi Zimmerman MD - 10/04/2019 8:20 AM EST1. Schedule Medicare wellness in 1 month documented in this encounter Progress Notes Shruthi Zimmerman MD - 10/04/2019 8:20 AM EST Patient: Marbella Fraga Date of Service: 10/04/2019 Subjective: Marbella Fraga is a 64-y.o. female who presents for Chief Complaint Patient presents with Follow Up acute gastroenteritis , all over gassy and thinks ulcer is acting Patient comes follow up diarrhea. Improved Still has some gassiness, epigastric discomfort Blood tests showed low K and very high TSH Patient admits forgetting to take K supplement and Levothyroxine Restarted to take it as prescribed since wa called about the tests results Past Medical History: Diagnosis Date Bipolar affective disorder (HCC) BMI 36.0-36.9,adult Cervical dysplasia cryo- in 80s Colon polyp Adenoma DJD (degenerative joint disease) Fatty liver Fibromyalgia GERD (gastroesophageal reflux disease) Hemorrhoid Hypertension Hypothyroidism Ulcerative colitis history of, resolved Outpatient Medications as of 10/04/2019 Medication Sig Dispense Refill acetaminophen (TYLENOL) 325 MG Oral Tab Take 650 mg by mouth EVERY FOUR HOURS NEEDED for Pain. Aspirin 81 MG Oral Tab Take 81 mg by mouth. clonazePAM (KLONOPIN) 2 MG Oral Tab Take 1 mg by mouth TWICE DAILY. 90 Tab 0 duloxetine (CYMBALTA) 30 MG Oral CAPSULE ENTERIC COATED PARTICLES Take 60 mg by mouth DAILY. 60 Cap 0 gabapentin (NEURONTIN) 300 MG Oral Cap TAKE 1 CAPSULE EVERY MORNING, 1 MIDDAY AND 3 AT BEDTIME MAXIMUM DAILY DOSE = 5 CAPSULES (Patient taking differently: Indications: one in am / 1 midday and now 2 pills at HS) 450 Cap 1 hydrochlorothiazide (HCTZ, ORETIC) 25 MG Oral Tab TAKE ONE TABLET BY MOUTH DAILY 90 Tab 1 Lactobacillus Rhamnosus, GG, (CULTURELLE) Oral Cap Take 1 Cap by mouth DAILY. lamotrigine (LAMICTAL) 100 MG Oral Tab Take 150 mg by mouth DAILY. Indications: taking 150mg levothyroxine (SYNTHROID) 137 MCG Oral Tab Take 1 Tab by mouth BEFORE BREAKFAST. 30 Tab 3 lithium 300 MG Oral Tab Take 1 Tab by mouth TWICE DAILY. 10 Tab 0 Omeprazole 40 MG Oral CAPSULE DELAYED RELEASE Take 1 Cap by mouth TWICE DAILY. 180 Cap 1 potassium chloride (K-DUR) 10 MEQ Oral Tab CR Take 3 Tabs by mouth DAILY. 90 Tab 1 primidone (MYSOLINE) 50 MG Oral Tab Take 50 mg by mouth EVERY BEDTIME. Rosuvastatin Calcium (CRESTOR) 20 MG Oral Tab TAKE ONE TABLET BY MOUTH DAILY 90 Tab 1 sucralfate (CARAFATE) 1 GM Oral Tab TAKE ONE TABLET BY MOUTH FOUR TIMES DAILY BEFORE MEALS AND NIGHTLY 120 Tab 5 No current facility-administered medications on file as of 10/04/2019. Allergies Allergen Reactions Becca "all antihistimines cause hyperactivity" Antihistamines, Diphenhydramine-Type FIBRE TECHNOLOGIST Reaction Buspirone "buspar" Epinephrine Cardiac Reaction Morphine Dermatologic Reaction Rash and hives Review of Systems: All remaining review of systems was negative. Objective: BP 112/60 (BP Location: Left arm, Patient Position: Sitting) Pulse 66 Temp 98 F (36.7 C) Ht 5' 7" (1.702 m) Wt 203 lb (92.1 kg) SpO2 97% BMI 31.79 kg/m2 GENERAL: alert, no distress THROAT: lips, mucosa, and tongue normal: teeth and gums normal NECK: supple, symmetrical, trachea midline and no adenopathy LUNGS: clear to auscultation bilaterally HEART: regular rate and rhythm, S1, S2 normal, no murmur, click, rub or gallop ABDOMEN: soft, tender in epigastric area. Bowel sounds normal. No masses, no organomegaly Component Latest Ref Rng & Units 09/27/2019 09/27/2019 09/27/2019 8:31 AM 8:31 AM 8:31 AM Sodium 134 - 145 mmol/L 138 Potassium 3.5 - 5.1 mmol/L 3.0 (L) Chloride 98 - 107 mmol/L 97 (L) CO2 22 - 30 mmol/L 27 Glucose (Lab) 70 - 99 mg/dl 107 (H) Creatinine 0.7 - 1.2 mg/dl 1.4 (H) BUN 7 - 17 mg/dl 11 Calcium 8.3 - 10.1 mg/dl 9.6 Albumin 3.5 - 5.0 g/dl 4.2 Phosphorus 2.5 - 4.5 MG/DL 3.7 eGFR See Interpretation Below ml/min/1.73ml Sq 38 BUN/Creatinine Ratio 6 - 22 RATIO 8 Anion Gap 3 - 11 mmol/L 14 (H) Magnesium 1.6 - 2.3 MG/DL 2.2 TSH 0.47 - 4.68 uIu/ml 118.00 (H) ICD-9-CM ICD-10-CM 1. Diarrhea, unspecified type Improved 787.91 R19.7 2. Hypokalemia 276.8 E87.6 BASIC METABOLIC PANEL 3. Hypothyroidism, unspecified type Will recheck TSH in 1 month 244.9 E03.9 Patient Instructions 1. Schedule Medicare wellness in 1 month Author: Shruthi Zimmerman MD documented in this encounter Plan of Treatment Date Type Specialty Care Team Description 10/26/2019 Ancillary Procedure Radiology 11/04/2019 Office Visit Family Practice Shruthi Zimmerman MD [address] [place] [address] [phone] Name Type Priority Associated Diagnoses Date/Time BASIC METABOLIC PANEL Lab Routine Hypokalemia 10/04/2019 9:10 AM EST Health Maintenance Due Date Last Done Comments DTaP/Tdap/Td Vaccines ( - 1968 Tdap) MEDICARE ANNUAL WELLNESS 06/19/2019 06/19/2018 VISIT MAMMOGRAM (SCREENING) 09/17/2019 09/17/2018, 09/08/2017, 09/03/2016, Additional history exists DEPRESSION SCREENING 03/17/2020 03/17/2019, 03/17/2019 LIPID DISORDER SCREENING 04/23/2020 04/23/2019, 09/03/2016, 01/16/2016, Additional history exists DIABETES SCREENING 09/27/2020 09/27/2019, 06/17/2019, 04/28/2019, Additional history exists ZOSTER IMMUNIZATION SERIES 10/04/2020 Postponed from (1 of 2) 2007 (Vaccine not available) Colonoscopy 01/01/2021 01/01/2018, 01/01/2018, 2015, Additional history exists PAP SMEAR 06/19/2021 06/19/2018, 06/13/2015, 06/13/2015, Additional history exists INFLUENZA VACCINE Completed 06/17/2019, 06/19/2018, 08/12/2017, Additional history exists HEPATITIS A IMMUNIZATION Aged Out No longer eligible SERIES based on patient's age to complete this topic HPV IMMUNIZATION SERIES Aged Out No longer [...] Problems Progress Blood Pressure Blood Pressure Hypertension 112/60 No Erasmo, < 140/90 (10/04/2019 Shruthi, 8:21 AM EST) Note: Hypertension Care Plan Based on the [...] Educational Resources: National Heart, Lung, & Blood [place] http://nhlbi.nih.gov/hbp/index.html The DASH Diet Eating Plan http://www.nhlbi.nih.gov/health/health-topics/ topics/dash/ Academy of Nutrition & DIetetics http://eatright.org National Smoking Cessation Site http://smokefree.gov Blood Pressure < Blood Pressure 112/60 (10/04/2019 No Shruthi Zimmerman, 140/90 8:21 AM EST) Note: This is an individualized treatment (blood [...] treatment (depression) goal for Marbella Del Rosario Fraga: Displayed above is your goal for [...] counseling Weight loss vs. 18 mo Lifestyle 28.6 (10/04/2019 8:21 AM No Shruthi Zimmerman MD max (lbs) >= 10 EST) Note: This is an individualized lifestyle goal [...] filedocumented in this encounter Visit Diagnoses Diagnosis Hypokalemia Hypopotassemia Diarrhea, unspecified type Hypothyroidism, unspecified type documented in this encounter Insurance Payer Benefit Plan / Subscriber ID Effective Dates Phone Address Type Group MEDICARE MEDICARE PART A xxxxxxxxxxx 2008-Present Medicare & B LIFETIME LIFETIME BENEFIT xxxxxxxxxxxx 2015-[employer] [phone] [id number] (Work) documented as of this encounter
--- OUTSIDE RECORDS SUMMARY | 2019-11-14 08:23 | XMS REPORT | Summary of Care ---
:1955 Author Organization [facility] Address [address] [place] [place] [address] Care Team Providers Name Role Phone Shruthi Zimmerman Primary Care Provider Reason for Visit Reason Comments Hospital Follow Up [facility] discharge 10/27/19. Abdominal Pain Blood Infection Encounter Details Date Type Department Care Team Description 11/04/2019 Office Visit [facility] Erasmo, S/P cholecystectomy ( Primary Dx); Practice MD Shruthi Gastroesophageal reflux disease, esophagitis presence not specified; [address] Hypothyroidism, unspecified type; [place] [address] [place] [address] Hypokalemia [phone] Allergies Active Allergy Reactions Severity Noted Date Comments Becca 10/21/2007 "all antihistimines cause hyperactivity" Antihistamines, CAR SERVICER Reaction 02/29/2008 Diphenhydramine-Type Buspirone 10/21/2007 "buspar" Epinephrine Cardiac Reaction 03/19/2019 Morphine Dermatologic Reaction 06/13/2015 Rash and hives documented as of this encounter (statuses as of 11/04/2019) Medications Medication Sig Dispensed Refills Start Date End Date Status lamotrigine (LAMICTAL) Take 200 mg by 0 Active 100 MG Oral mouth DAILY. TabIndications: taking Indications: 150mg taking 150mg lithium 300 MG Oral Tab Take 1 Tab by 10 Tab 0 05/22/2010 Active mouth TWICE DAILY. Aspirin 81 MG Oral Tab Take 81 mg by 0 Active mouth. Lactobacillus Take 1 Cap by 0 Active Rhamnosus, GG, mouth DAILY. (CULTURELLE) Oral Cap duloxetine (CYMBALTA) Take 60 mg by 60 [...] at HS, Reported on 06/17/2019 1:07 PM Omeprazole 40 MG Oral Take 1 Cap by 180 Cap 1 06/22/2019 Active CAPSULE DELAYED RELEASE mouth TWICE DAILY. hydrochlorothiazide (HCTZ, TAKE ONE 90 Tab 1 08/09/2019 Active ORETIC) 25 MG Oral Tab TABLET BY MOUTH DAILY Simethicone (GAS-X EXTRA Take by mouth 0 Active STRENGTH PO) DAILY 0700 on Empty Stomach. potassium chloride (K-DUR) Take 2 Tabs by 120 Tab 1 10/05/2019 Active 10 MEQ Oral Tab CR mouth TWICE DAILY. levothyroxine (SYNTHROID) Take 1 Tab by 30 Tab 3 10/19/2019 Active 137 MCG Oral Tab mouth BEFORE BREAKFAST. Rosuvastatin Calcium Take 1 Tab by 90 Tab 1 11/01/2019 Active (CRESTOR) 20 MG Oral mouth DAILY. TabIndications: High triglycerides sucralfate (CARAFATE) 1 GM Take 1 Tab by 120 Tab 5 11/04/2019 Active Oral TabIndications: mouth FOUR Gastroesophageal reflux TIMES DAILY. disease, esophagitis presence not specified ampicillin (OMNIPEN, Take 500 mg by 0 Active POLYCILLIN-N) 500 MG Oral mouth FOUR Cap TIMES DAILY. clonazePAM (KLONOPIN) 0.5 Take 0.5 mg by 0 Active MG Oral Tab mouth TWICE DAILY. clonazePAM (KLONOPIN) 2 MG Take 1 mg by 90 Tab 0 05/30/201511/04/ Discontinued (Dose Oral Tab mouth TWICE 2019 Adjustment) DAILY. sucralfate (CARAFATE) 1 GM TAKE ONE 120 Tab 5 08/19/201904/2019 Oral TabIndications: TABLET BY 2019 (Reorder) Gastroesophageal reflux MOUTH FOUR disease, esophagitis TIMES DAILY presence not specified BEFORE MEALS AND NIGHTLY documented as of this encounter (statuses as of 11/04/2019) Active Problems Problem Noted Date Lumbar radiculopathy, chronic 07/19/2019 Acute pain of right shoulder 05/25/2019 Traumatic complete tear of right rotator cuff 03/19/2019 Tear of right rotator cuff 02/24/2019 Overview: Added automatically from request for surgery [id number] Bipolar affective disorder 01/28/2019 Bursitis of left [...] as of this encounter (statuses as of 11/04/2019) Resolved Problems Problem Noted Date Resolved Date Pain in beck left 07/23/2012 12/09/2013 Ulcerative colitis 01/04/2008 03/13/2009 Overview: Reports that this was actually infectious colitis documented as of this encounter (statuses as of 11/04/2019) Immunizations Name Administration Dates Next Due Influenza [...] Sign Reading Time Taken Comments Blood Pressure 118/78 11/04/2019 11:00 AM EST Pulse 67 11/04/2019 11:00 AM EST Temperature 37 11/04/2019 11:00 AM EST C (98.6 F) Respiratory Rate - - Oxygen Saturation 98% 11/04/2019 11:00 AM EST Inhaled Oxygen Concentration - - Weight 92.1 kg (203 lb) 11/04/2019 11:00 AM EST Height 170.2 cm (5' 7") 11/04/2019 11:00 AM EST Body Mass Index 31.79 11/04/2019 11:00 AM EST documented in this encounter Patient Instructions Patient InstructionsShruthi Zimmerman MD - 11/04/2019 11:00 AM EST1. Follow up for medicare wellness in 3-4 weeks and as needed documented in this encounter Progress Notes Shruthi Zimmerman MD - 11/04/2019 11:00 AM EST Patient: Marbella Fraga Date of Service: 11/04/2019 Subjective: Marbella Fraga is a 64-y.o. female who presents for Chief Complaint Patient presents with Hospital Follow Up [facility] discharge 10/27/19. Abdominal Pain Blood Infection TCM Statement. Review of the hospitalization: I am seeing for transition of care following hospitalization. The date of discharge was: 10/27/19 The discharge diagnosis was Sepsis due to acute cholecystitis. S/P cholecystectomy. I reviewed the discharge summary, discharge instructions, and pertinent additional documentation obtained during hospitalization. I reconciled the medications. I also reviewed the Transition of Care documentation done by staff. The tests that were not available at the time of discharge were reviewed. Additional tests which are not yet available include: none Coordination of care. (delete one and this phrase) - I am satisfied that appropriate referrals are in place to deal with the problems identified during hospitalization, and that the patient has adequate community resources and support in place. - Additional testing related to hospitalization was requested today: yes See orders. I confirmed the patient's understanding of the diagnosis and plan of care. Specific education that was provided today The current and discharge medications were reconciled by me, today The source document was hospital discharge summary Presented to [facility] ER on 10/21/19 with complains of abdominal pain. Was told she had gallstones. Advised to follow for surgical consult as outpatient Returned to the ER next day with increasing pain. Undergone cholecystectomy with lysis of adhesions on 10/23/19 Cultures from the drain were positive for Streptococcus agalactiae Treated with IV Zosyn. Also was found to have hypoxia at night Has history of sleep apnea. Not able to tolerate CPAP Discharged on O2 2 L/Min by NC when asleep Today complains of fatigue, pain in the area of the surgery. Fair oral intake. Has regular BM's Has appointment with surgery today. Complains of worse depression symptoms Past Medical History: Diagnosis Date Bipolar affective disorder (HCC) BMI 36.0-36.9,adult Cervical dysplasia cryo- in 80s Colon polyp Adenoma DJD (degenerative joint disease) Fatty liver Fibromyalgia GERD (gastroesophageal reflux disease) Hemorrhoid Hypertension Hypothyroidism Ulcerative colitis history of, resolved Outpatient Medications as of 11/04/2019 Medication Sig Dispense Refill acetaminophen (TYLENOL) 325 MG Oral Tab Take 650 mg by mouth EVERY FOUR HOURS NEEDED for Pain. Aspirin 81 MG Oral Tab Take 81 mg by mouth. duloxetine (CYMBALTA) 30 MG Oral CAPSULE ENTERIC [...] lamotrigine (LAMICTAL) 100 MG Oral Tab Take 200 mg by mouth DAILY. Indications: taking 150mg [...] (K-DUR) 10 MEQ Oral Tab CR Take 2 Tabs by mouth TWICE DAILY. 120 Tab 1 primidone (MYSOLINE) 50 MG Oral Tab Take 50 mg by mouth EVERY BEDTIME. Rosuvastatin Calcium (CRESTOR) 20 MG Oral Tab Take 1 Tab by mouth DAILY. 90 Tab 1 Simethicone (GAS-X EXTRA STRENGTH PO) Take by mouth DAILY 0700 on Empty Stomach. No current facility-administered medications on file as of 11/04/2019. Allergies Allergen Reactions Becca "all antihistimines cause hyperactivity" Antihistamines, Diphenhydramine-Type CAR SERVICER Reaction Buspirone "buspar" Epinephrine Cardiac Reaction Morphine Dermatologic Reaction Rash and hives Review of Systems: All remaining review of systems was negative. Objective: BP 118/78 Pulse 67 Temp 98.6 F (37 C) Ht 5' 7" (1.702 m) Wt 203 lb ( 92.1 kg) SpO2 98% BMI 31.79 kg/m2 GENERAL: alert, fatigued THROAT: lips, mucosa, and tongue normal: teeth and gums normal NECK: supple, symmetrical, trachea midline and no adenopathy LUNGS: clear to auscultation bilaterally HEART: regular rate and rhythm, S1, S2 normal, no murmur, click, rub or gallop ABDOMEN: soft, tender in the RUQ area. Postsurgical wounds are healing well. Bowel sounds normal. No masses, no organomegaly ICD-9-CM ICD-10-CM 1. S/P cholecystectomy V45.79 Z90.49 CBC WITH DIFFERENTIAL 2. Gastroesophageal reflux disease, esophagitis presence not specified 530.81 K21.9 sucralfate (CARAFATE) 1 GM Oral Tab 3. Hypothyroidism, unspecified type 244.9 E03.9 THYROID STIMULATING HORMONE FREE T4 4. Hypokalemia 276.8 E87.6 RENAL FUNCTION PANEL Patient Instructions 1. Follow up for medicare wellness in 3-4 weeks and as needed Patient also advised to schedule appointment with Mental health for Depression treatment adjustments Author: Shruthi Zimmerman MD documented in this encounter Plan of Treatment Date Type Specialty Care Team Description 12/02/2019 Office Visit [facility] Shruthi Zimmerman MD [address] [place], [place] [id number] [phone] Name Type Priority Associated Diagnoses Date/Time RENAL FUNCTION PANEL Lab Routine Hypokalemia 11/04/2019 11:42 AM EST THYROID STIMULATING Lab Routine Hypothyroidism, unspecified 11/04/2019 11: 42 AM HORMONE type EST FREE T4 Lab Routine Hypothyroidism, unspecified 11/04/2019 11:42 AM type EST CBC WITH DIFFERENTIAL Lab Routine S/P cholecystectomy 11/04/2019 11:42 AM EST Health Maintenance Due Date Last Done Comments MEDICARE ANNUAL WELLNESS 06/19/2019 06/19/2018 VISIT MAMMOGRAM (SCREENING) 09/17/2019 09/17/2018, 09/08/2017, 09/03/2016, Additional history exists DEPRESSION SCREENING 03/17/2020 03/17/2019, 03/17/2019 DIABETES SCREENING 10/04/2020 10/04/2019, 09/27/2019, 06/17/2019, Additional history exists ZOSTER IMMUNIZATION SERIES 10/04/2020 Postponed from (1 of 2) 2007 (Vaccine not available) LIPID DISORDER SCREENING 11/01/2020 11/01/2019, 09/03/2016, 01/16/2016, Additional history exists Colonoscopy 01/01/2021 01/01/2018, 01/01/2018, 2015, Additional history exists PAP SMEAR 06/19/2021 06/19/2018, 06/13/2015, 06/13/2015, Additional history exists DTaP/Tdap/Td Vaccines (2 - 02/02/2029 02/02/2019 Tdap) INFLUENZA VACCINE Completed 06/17/2019, 06/19/2018, 08/12/2017, Additional [...] Problems Progress Blood Pressure Blood Pressure Hypertension 118/78 No Erasmo, < 140/90 (11/04/2019 Shruthi, 11:00 AM EST) Note: Hypertension Care Plan Based [...] Educational Resources: National Heart, Lung, & Blood [place] http://nhlbi.nih.gov/hbp/index.html The DASH Diet Eating Plan http://www.nhlbi.nih.gov/health/health-topics/ topics/dash/ Academy of Nutrition & DIetetics http://eatright.org National Smoking Cessation Site http://smokefree.gov Blood Pressure < Blood Pressure 118/78 (11/04/2019 No Shruthi Zimmerman, 140/90 11:00 AM EST) Note: This is an individualized [...] an individualized treatment (depression) goal for Marbella M Fraga: Displayed above is your goal for [...] Weight loss vs. 18 mo Lifestyle 28.6 (11/04/2019 11:00 AM No Shruthi Zimmerman MD max (lbs) [...] individualized lifestyle goal for Marbella Miguel Ángel Flakito: Please maintain a regular sleep schedule. This may help with some symptoms of depression. Take all prescribed medications as Self-management No Shruthi Zimmerman MD directed Note: This is an individualized self-management goal for Marbella Miguel Ángel Flakito: Please take all prescribed medications as [...] filedocumented in this encounter Visit Diagnoses Diagnosis Gastroesophageal reflux disease, esophagitis presence not specified Hypothyroidism, unspecified type Hypokalemia Hypopotassemia S/P cholecystectomy Other acquired absence of organ documented in this encounter Insurance Payer Benefit Plan / Subscriber ID Effective Dates Phone Address Type Group MEDICARE MEDICARE PART A xxxxxxxxxxx 2008-Present Medicare & B LIFETIME LIFETIME BENEFIT xxxxxxxxxxxx 2015-[facility] [employer] [phone] [id number] (Work) documented as of this encounter
--- OUTSIDE RECORDS SUMMARY | 2019-11-14 08:24 | XMS REPORT | Summary of Care ---
:1955 Author Organization [facility] Address [address] [place] [address] Care Team Providers Name Role Phone hSruthi Zimmerman Primary Care Provider Reason for Visit Reason Comments Check Up pt c/o being sick ( gasritis) has had diarha for 5 days nuasae , weak tired over all just exhusted also left ear keeps cloggingand needing to be popped couldnt hear for 2 days d/t it now hearing is muted Encounter Details Date Type Department Care Team Description 09/27/2019 Office Visit [facility] Erasmo, Acute gastroenteritis ( Primary Dx); Practice MD Shruthi Other specified hypothyroidism; [address] Screening mammogram, encounter for; [place] [address] [place] [address] Impacted cerumen of left ear [phone] Allergies Active Allergy Reactions Severity Noted Date Comments Becca 10/21/2007 "all antihistimines cause hyperactivity" Antihistamines, COMPUTER FORENSICS EXAMINER Reaction 02/29/2008 Diphenhydramine-Type Buspirone 10/21/2007 "buspar" Epinephrine Cardiac Reaction 03/19/2019 Morphine Dermatologic Reaction 06/13/2015 Rash and hives documented as of this encounter (statuses as of 09/27/2019) Medications Medication Sig Dispensed Refills Start Date [...] 06/17/2019 1:07 PM Rosuvastatin Calcium TAKE ONE TABLET 90 Tab 1 04/23/2019 Active (CRESTOR) 20 MG Oral BY MOUTH DAILY TabIndications: High triglycerides levothyroxine (SYNTHROID) Take 1 Tab by 30 Tab 3 05/03/2019 Active 137 MCG Oral Tab mouth BEFORE BREAKFAST. Omeprazole 40 MG Oral Take 1 Cap by 180 Cap 1 06/22/2019 Active CAPSULE DELAYED RELEASE mouth TWICE DAILY. hydrochlorothiazide (HCTZ, TAKE ONE TABLET 90 Tab 1 08/09/2019 Active ORETIC) 25 MG Oral Tab BY MOUTH DAILY sucralfate (CARAFATE) 1 GM TAKE ONE TABLET 120 Tab 5 08/19/2019 Active Oral TabIndications: BY MOUTH FOUR Gastroesophageal reflux TIMES DAILY disease, esophagitis BEFORE MEALS presence not specified AND NIGHTLY potassium chloride (K-DUR) Take 3 Tabs by 90 Tab 1 09/20/2019 Active 10 MEQ Oral Tab CR mouth DAILY. ondansetron (ZOFRAN ODT) 8 Take 1 Tab by 60 Tab 0 09/30/2017 09/27/20 Discontinued MG Oral TABLET mouth EVERY 19 DISPERSIBLEIndications: EIGHT HOURS Nausea NEEDED for nausea. hydrocortisone (HYTONE) 2.5 1 Appl by 1 Tube 0 05/22/2018 09/27/20 Discontinued % Apply externally Cream Topical route 19 TWICE DAILY. meclizine (ANTIVERT) 25 MG Take 25 mg by 0 09/27/20 Discontinued Oral Tab mouth THREE 19 TIMES DAILY NEEDED for dizziness/verti go. potassium chloride (K-TAB) Take 3 Tabs by 90 Tab 1 06/23/2019 09/27/20 Discontinued 10 MEQ Oral Tab CR mouth DAILY. 19 documented as of this encounter (statuses as of 09/27/2019) Active Problems Problem Noted Date Lumbar radiculopathy, chronic 07/19/2019 Acute pain of right shoulder 05/25/2019 Traumatic complete tear of right rotator cuff 03/19/2019 Tear of right rotator cuff 02/24/2019 Overview: Added automatically from request for surgery [id number] Bipolar affective disorder 01/28/2019 Bursitis of left [...] as of this encounter (statuses as of 09/27/2019) Resolved Problems Problem Noted Date Resolved Date Pain in beck left 07/23/2012 12/09/2013 Ulcerative colitis 01/04/2008 03/13/2009 Overview: Reports that this was actually infectious colitis documented as of this encounter (statuses as of 09/27/2019) Immunizations Name Administration Dates Next Due Influenza [...] Sign Reading Time Taken Comments Blood Pressure 112/62 09/27/2019 3:27 PM EST Pulse 69 09/27/2019 3:27 PM EST Temperature 37.4 09/27/2019 3:27 PM EST C (99.4 F) Respiratory Rate - - Oxygen Saturation 95% 09/27/2019 3:27 PM EST Inhaled Oxygen Concentration - - Weight 93.6 kg (206 lb 4.8 oz) 09/27/2019 3:27 PM EST Height - - Body Mass Index 32.31 08/23/2019 11:18 AM EST documented in this encounter Patient Instructions Patient InstructionsShruthi Zimmerman MD - 09/27/2019 3:20 PM EST1. Schedule Mammo- 2. Avoid milk products, yogurt is OK. Avoid concentrated sugars. Low residue diet 3. Restart ProbioticsElectronically signed by Shruthi Zimmerman MD at 2018 4:03 PM EST documented in this encounter Progress Notes Shruthi Zimmerman MD - 09/27/2019 3:20 PM EST PATIENT: Marbella Fraga : 1955 DATE OF SERVICE: 09/27/2019 Subjective SUBJECTIVE: Marbella Fraga is a 64-y.o. female who presents for evaluation of diarrhea. Onset of diarrhea was 5 days ago. Diarrhea is occurring approximately several times per day. Patient describes diarrhea as watery and semisolid. Diarrhea has been associated with: abdominal pain Cramping, nasal congestion. L ear feels plugged Patient denies blood in stool, recent antibiotic use, illness in household contacts, recent travel, unintentional weight loss, Dysuria. Previous visits for diarrhea: none. Evaluation to date: none. Past Medical History: Diagnosis Date Bipolar affective [...] GI Sister celiac Psychiatry Brother Heart Unknown [place], father, sister Hypertension Unknown mother Stroke Unknown [...] Tab TAKE ONE TABLET BY MOUTH DAILY Lactobacillus Rhamnosus, GG, (CULTURELLE) Oral Cap Take 1 Cap by mouth DAILY. lamotrigine (LAMICTAL) 100 MG Oral Tab Take 150 mg by mouth DAILY. Indications: taking 150mg levothyroxine (SYNTHROID) 137 MCG Oral Tab Take 1 Tab by mouth BEFORE BREAKFAST. lithium 300 MG Oral Tab Take 1 Tab by mouth TWICE DAILY. Omeprazole 40 MG Oral CAPSULE DELAYED RELEASE Take 1 Cap by mouth TWICE DAILY. potassium chloride (K-DUR) 10 MEQ Oral Tab CR Take 3 Tabs by mouth DAILY. primidone (MYSOLINE) 50 MG [...] Becca "all antihistimines cause hyperactivity" Antihistamines, Diphenhydramine-Type COMPUTER FORENSICS EXAMINER Reaction Buspirone "buspar" Epinephrine Cardiac Reaction Morphine Dermatologic Reaction Rash and hives Social History Socioeconomic History Marital status: Spouse name: Not on file Number of children: Not on file Years of education: Not on file Highest education level: Not on file Occupational History Not on file Social Needs Financial resource strain: Not on file Food insecurity Worry: Not on file Inability: Not on file Transportation needs Medical: Not on file Non-medical: Not on file Tobacco Use Smoking status: Former Smoker Packs/day: 0.00 Years: 29.00 Pack years: 0.00 Last attempt to quit: 01/12/2016 Years since quittin.7 Smokeless tobacco: Never Used Tobacco comment: smokes E-Cig now Substance and Sexual Activity Alcohol use: No Alcohol/week: 0.0 standard drinks Drug use: No Sexual activity: Yes Lifestyle Physical activity Days per week: Not on file Minutes per session: Not on file Stress: Not on file Relationships Social connections Talks on phone: Not on file Gets together: Not on file Attends hoahaoism service: Not on file Active member of club or organization: Not on file Attends meetings of clubs or organizations: Not on file Relationship status: Not on file Intimate partner violence Fear of current or ex partner: Not [...] Not Asked Social History Narrative Lives in [place] with and daughter. On disability. Dogs and guinea pig in home. Smokes ppd. REVIEW OF SYSTEMS: All remaining review of systems was negative. Objective OBJECTIVE: BP 112/62 (BP Location: Left arm, Patient Position: Sitting) | Pulse 69 | Temp 99.4 F (37.4 C) | Wt 206 lb 4.8 oz (93.6 kg) | SpO2 95% | BMI 32.31 kg/m General appearance: alert, fatigued Ears - right ear normal, ceruminosis noted, cerumen removed with ear lavage, TM and external ear canal normal,. Oropharyngeal exam - erythematous. Nasal exam - mucosal congestion. Neck exam - supple, bilateral symmetric anterior adenopathy. Back exam: no flank tenderness. Chest: clear to auscultation, no wheezes, rales or rhonchi, symmetric air entry. CVS exam: normal rate, regular rhythm, normal S1, S2, no murmurs, rubs, clicks or gallops. Abdominal exam: soft, tender in periumbilical area, nondistended, no masses or organomegaly. ICD-9-CM ICD-10-CM 1. Acute gastroenteritis 558.9 K52.9 2. Other specified hypothyroidism 244.8 E03.8 THYROID STIMULATING HORMONE THYROID STIMULATING HORMONE 3. Screening mammogram, encounter for V76.12 Z12.31 MAMMO SCREENING TOMOSYNTHESIS BILATERAL MAMMO SCREENING TOMOSYNTHESIS BILATERAL 4. Impacted cerumen of left ear 380.4 H61.22 REMOVAL OF CERUMEN REQUIRING INSTRUMENTATION Patient Instructions 1. Schedule Mammo- 2. Avoid milk products, yogurt is OK. Avoid concentrated sugars. Low residue diet 3. Restart Probiotics Follow up as scheduled and as needed Author: Shruthi Zimmerman MD 09/27/2019 15:52 documented in this encounter Plan of Treatment Date Type Specialty Care Team Description 10/04/2019 Office Visit Family Practice Shruthi Zimmerman MD [address] [place] [address] [phone] 10/26/2019 Ancillary Procedure Radiology Name Type Priority Associated Diagnoses Order Schedule THYROID STIMULATING Lab Routine Other specified Expected: HORMONE hypothyroidism 09/27/2019 (Approximate), Expires: 09/27/2020 MAMMO SCREENING Imaging Routine Screening mammogram, Expected: TOMOSYNTHESIS BILATERAL encounter for 09/27/2019, Expires: 12/25/2020 MAMMO SCREENING Imaging Routine Screening mammogram, Expected: TOMOSYNTHESIS BILATERAL encounter for 09/27/2019, Expires: 12/25/2020 REMOVAL OF CERUMEN Procedures Routine Impacted cerumen of Ordered: REQUIRING INSTRUMENTATION left ear 09/27/2019 Health Maintenance Due Date Last Done Comments DTaP/Tdap/Td Vaccines (1 - 1968 Tdap) ZOSTER IMMUNIZATION SERIES 2007 (1 of 2) MEDICARE ANNUAL WELLNESS 06/19/2019 06/19/2018 VISIT MAMMOGRAM (SCREENING) 09/17/2019 09/17/2018, 09/08/2017, 09/03/2016, Additional history exists DEPRESSION SCREENING 03/17/2020 03/17/2019, 03/17/2019 LIPID DISORDER SCREENING 04/23/2020 04/23/2019, 09/03/2016, 01/16/2016, Additional history exists DIABETES SCREENING 06/17/2020 06/17/2019, 04/28/2019, 03/17/2019, Additional history exists Colonoscopy 01/01/2021 01/01/2018, 01/01/2018, [...] Problems Progress Blood Pressure Blood Pressure Hypertension 112/62 No Erasmo, < 140/90 (09/27/2019 Shruthi, 3:27 PM EST) Note: Hypertension Care Plan Based on [...] Educational Resources. record my blood pressure results. Gabrielle is safe and secure way for you to do this in your medical record online. limit alcohol consumption. For men two drinks per day and women one drink per day. if currently smoking, will discuss how to quit smoking with my healthcare provider and work towards quitting. Educational Resources: National Heart, Lung, & Blood [place] http://nhlbi.nih.gov/hbp/index.html The DASH Diet Eating Plan http://www.nhlbi.nih.gov/health/health-topics/ topics/dash/ Academy of Nutrition & DIetetics http://eatright.org National Smoking Cessation Site http://smokefree.gov Blood Pressure < Blood Pressure 112/62 (09/27/2019 No Shruthi Zimmerman, 140/90 3:27 PM EST) Note: This is an individualized treatment [...] counseling Weight loss vs. 18 mo Lifestyle 25.3 (09/27/2019 3:27 PM No Shruthi Zimmerman MD max (lbs) >= 10 EST) Note: This is an individualized lifestyle goal for Marbella Miguel Ángel Flakito: Your body mass index (BMI) is more [...] filedocumented in this encounter Visit Diagnoses Diagnosis Other specified hypothyroidism Screening mammogram, encounter for Acute gastroenteritis Other and unspecified noninfectious gastroenteritis and colitis Impacted cerumen of left ear Impacted cerumen documented in this encounter Insurance Payer Benefit Plan / Subscriber ID Effective Dates Phone Address Type Group MEDICARE MEDICARE PART A xxxxxxxxxxx 2008-Present Medicare & B LIFETIME LIFETIME BENEFIT xxxxxxxxxxxx 2015-Presen [place] [phone] [id number] (Work) documented as of this encounter
--- OUTSIDE RECORDS SUMMARY | 2019-11-14 08:24 | XMS REPORT | Continuity of Care Document ---
:1955 External Reference #:[id number] Author Name Eddie Daniel M.D. (transmitted by agent of provider Ivan Squires) Address [address] [place] [address], [place] [address] Care Team Providers Name Role Phone Kirit Dobson MD - Internal Care Team Information Morale Officer [phone] Medicine Problems Active Problems Provider Date Essential tremor Eddie Daniel M.D. Onset: 11/12/2017 Social History Type Date Description Comments Sex Unknown Tobacco Use Start: Unknown End: Former Cigarette Smoker 1 Unknown Pack Daily Smoking Status Reviewed: 09/23/19 Former Cigarette Smoker 1 Pack Daily ETOH Use Denies alcohol use Tobacco Use Start: Unknown Smokes E cigarette Recreational Drug Use Denies Drug Use Exercise Type/Frequency Exercises rarely Allergies, Adverse Reactions, Alerts Active Allergies Reaction Severity Comments Date Epinephrine Allergic asthma 02/05/2018 Keflex 02/05/2018 Medications Active Medications SIG Qnty Indications Ordering Date Provider Mysoline 1 by mouth 90tabs G25.0 Eddie Lozano 02/05/2018 50mg Tablets every night at Salima Daniel bedtime Acetaminophen 2 tablets by Unknown 325mg Tablets mouth every 6 hours as needed for pain/fever Aspirin Adult Low Strength take one Unknown 81mg tablet by Tablets DR mouth daily. Duloxetine HCL 2 by mouth Unknown 30mg Caps DR Part every day Gabapentin 1 po qam and Unknown 300mg Capsules noon, 2 tabs po qhs Hydrochlorothiazide 1 by mouth Unknown 25mg Tablets every day Culturelle Digestive 1 by mouth qd Unknown Health Capsules Lamotrigine 2 tabs po qd Unknown 100mg Tablets Clonazepam 2 by mouth Unknown 2mg Tablets Dispers daily Omeprazole 1 by mouth bid Unknown 40mg Capsules DR Sucralfate 1 tab po two Unknown 1gm Tablets times a day Rosuvastatin Calcium 1 by mouth Unknown 20mg Tablets every day [place] Carbonate 1 by mouth Unknown 300mg Capsules twice a day Levothyroxine Sodium 1 by mouth 90tabs Unknown 137mcg every day Tablets Potassium Chloride ER 3 tabs by 30caps Unknown 10Meq mouth every Capsules ER day Meclizine HCL 1 tablet every Unknown 25mg Tablets 8 hours as needed for vertigo Medications Administered in Office Medication SIG Qnty Indications Ordering Provider Date Celestone 3 mg and 3mg Yeny Acosta, 06/07/2011 Injection M.DTabitha Celestone 3 mg and 3mg Yeny Acosta, 01/07/2011 Injection M.DTabitha Immunizations Description No Information Available Vital Signs Date Vital Result Comment 09/23/2019 11:39am Height 67 inches 5'7" Weight 208.00 lb Heart Rate 65 /min BP Systolic Sitting 112 mmHg BP Diastolic Sitting 78 mmHg Respiratory Rate 16 /min Pain Level 4 leg pain O2 % BldC Oximetry 95 % BMI (Body Mass Index) 32.6 kg/m2 09/01/2019 1:58pm Height 67 inches 5'7" Weight 208.00 lb Heart Rate 71 /min BP Systolic Sitting 129 mmHg BP Diastolic Sitting 74 mmHg Respiratory Rate 16 /min Pain Level 0 O2 % BldC Oximetry 96 % BMI (Body Mass Index) 32.6 kg/m2 Results Description No Information Available Procedures Description No Information Available Medical Devices Description No Information Available Encounters Type Date Location Provider Dx Diagnosis Office Visit 09/01/2019 [facility] Kirit Mays, S92.532D Disp fx of dist 2:00p at [facility] phalanx of l less toe(s), 7thD L60.2 Onychogryphosis Office Visit 08/05/2019 11:00a [facility] S92.532A Disp fx of Orthopedics jay Mays M.D. 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 09/23/2019 G25.0 Essential tremor Eddie Daniel M.D. 09/01/2019 S92.532D Displaced fracture of distal phalanx of Kirit Mays M.D. left lesser toe(s), subsequent encounter for fracture with routine healing 09/01/2019 L60.2 Onychogryphosis Kirit Mays M.D. 08/05/2019 S92.532A Displaced fracture of distal phalanx of Kirit Mays M.D. left lesser toe(s), initial encounter for closed fracture 04/06/2019 H81.12 Benign paroxysmal vertigo, left ear Abhishek Rincon NP Plan of Treatment Future Appointment(s):09/21/2020 10:00 am - Eddie Daniel M.D. at [place]09/23/2019 - Eddie Daniel M.D.H81.12 Benign paroxysmal vertigo, left earG25.0 Essential tremorFollow up:1 YEAR Functional Status Description No Information Available Mental Status Description No Information Available Referrals Refer to Dr Reason for Referral Status Appt Date Eddie Malik, DPM nail issues Scheduled 11/25/2019 [address] [place] [address] [phone] William Xiao, PT, MPS, Vestibular Rehabilitation for [facility] [address] [place] [address] [phone]
[2019-11-14 08:38] VITALS: BP 132/81
--- NOTE | 2019-11-14 08:59 | UC ---
Abdominal Pain Female HPI - HPI Summary HPI Summary: 64 female with the acute onset of abd pain/bloating which started yesterday/has improved pain worse RUQ pain radiates to right shoulder malaise and lassitude also sores on palate states her gallbladder was infected with "flesh eating bacteria" and she was discharged on antibiotic no n/v/d - History of Current Complaint Chief Complaint: UCAbdominalPain Stated Complaint: ABDOMINAL PAIN Time Seen by Provider: 11/14/19 08:34 Hx Obtained From: Patient Hx Last Menstrual Period: n/a Onset/Duration: Sudden Onset, Lasting Hours Severity Initially: Severe Severity Currently: Moderate Pain Intensity: 5 Pain Scale Used: 0-10 Numeric Location: Diffuse Radiates: Yes Radiates to: Other - right shoulder Character: Colicy, Other - bloating Aggravating Factor(s): Nothing Alleviating Factor(s): Nothing Associated Signs and Symptoms: Negative: Diaphoresis, Fever, Cough, Chest Pain, Dizzy, Back Pain, Constipation, Blood in Stool, Urinary Symptoms, Decreased Appetite, Vaginal Bleeding, Vaginal Discharge, Nausea, Vomiting, Diarrhea Allergies/Adverse Reactions: Allergies Allergy/AdvReac Type Severity Reaction Status Date / Time buspirone [From BuSpar] Allergy Unknown Verified 11/14/19 08:31 Reaction Details cephalexin Allergy Unknown Verified 11/14/19 08:31 Reaction Details epinephrine Allergy Shortness Verified 11/14/19 08:31 of Breath antihistamines Allergy See Comment Uncoded 11/14/19 08:31 Home Medications: Home Medications Levothyroxine TAB* [Synthroid TAB*] 150 mcg PO QAM 11/14/19 [History Confirmed 11/14/19] Simethicone [Gas-X] 250 mg PO Q12H PRN 11/14/19 [History Confirmed 11/14/19] PMH/Surg Hx/FS Hx/Imm Hx Endocrine History: Dyslipidemia Cardiovascular History: Hypertension GI/ History: Gastroesophageal Reflux, Gall Bladder Disease Psychological History: Bipolar Disorder - Surgical History Surgical History: Yes Surgery Procedure, Year, and Place: Cholecystectomy, 2020, [facility]; [facility]ORE KNEE REPLACEMENT, TONSILLECTOMY. D&C. L carpal tunnel surgery. cataracts. RIGHT SHOULDER SURGERY - Family History Known Family History: Positive: Cardiac Disease, Hypertension - Social History Alcohol Use: None Substance Use Type: None Smoking Status (MU): Current Every Day Smoker Type: eCigarettes Amount Used/How Often: daily Length of Time of Smoking/Using Tobacco: 1 PPD x 37 Years (Quit ~2017 and started eCigs) Have You Smoked in the Last Year: Yes Household Exposure Type: Cigarettes - Immunization History Most Recent Influenza Vaccination: 2012 Most Recent Tetanus Shot: 02/04/19 Review of Systems All Other Systems Reviewed And Are Negative: Yes Constitutional: Positive: Fatigue Skin: Positive: Negative Eyes: Positive: Negative ENT: Positive: Negative Respiratory: Positive: Negative Cardiovascular: Positive: Negative Gastrointestinal: Positive: Abdominal Pain Genitourinary: Positive: Negative Motor: Positive: Negative Neurovascular: Positive: Negative Musculoskeletal: Positive: Negative Neurological: Positive: Negative Psychological: Positive: Negative Physical Exam Triage Information Reviewed: Yes Appearance: Well-Appearing, No Pain Distress, Well-Nourished Vital Signs: Initial Vital Signs Temp 98.6 F 11/14/19 08:25 Pulse 74 11/14/19 08:25 Resp 16 11/14/19 08:25 BP 132/81 11/14/19 08:25 Pulse Ox 99 11/14/19 08:25 Vital Signs Reviewed: Yes Eyes: Positive: Conjunctiva Clear ENT: Positive: Hearing grossly normal, Other - vesicular rash palate. Negative : Nasal congestion, Nasal drainage, Trismus, Muffled voice, Dental tenderness, Sinus tenderness Neck: Positive: Supple, Nontender, No Lymphadenopathy Respiratory: Positive: Lungs clear, Normal breath sounds, No respiratory distress, No accessory muscle use Cardiovascular: Positive: RRR, No Murmur, Pulses Normal Abdomen Description: Positive: Soft, Distended. Negative: Nontender - mostly tender RUL/diffusely tender Bowel Sounds: Positive: Present, Hyperactive Musculoskeletal: Positive: ROM Intact, No Edema Neurological: Positive: Alert Psychological Exam: Normal Skin Exam: Normal Abd Pain Female Course/Dx - Differential Dx/Diagnosis Provider Diagnosis: Abdominal pain, acute, right upper quadrant Discharge ED - Sign-Out/Discharge Documenting (check all that apply): Patient Departure All imaging exams completed and their final reports reviewed: No Studies - Discharge Plan Condition: Stable Disposition: HOME-RECOMMEND TO ED Referrals: Shruthi Zimmerman MD [Primary Care Provider] - Additional Instructions: please go directly to the [facility] ER nothing by mouth They are expecting you I spoke to Sonal Mays THERMOSTATIC CONTROLS SUPERVISOR - Billing Disposition and Condition Condition: STABLE Disposition: Home-Recommend to ED
== END 2019-11-14 09:06 | disposition home health service (06) ==
LOC: UCCORT 08:17
DX: R10.11 Right upper quadrant pain (principal); M25.511 Pain in right shoulder; R53.83 Other fatigue; I10 Essential (primary) hypertension; F31.9 Bipolar disorder, unspecified; F17.290 Nicotine dependence, other tobacco product, uncomplicated; Z88.1 Allergy status to other antibiotic agents; Z88.8 Allergy status to other drugs, medicaments and biological substances
CPT/HCPCS: 87651; 99212; G0463

== ENCOUNTER 2019-12-31 13:41 | Emergency (ER) | payer MEDICARE, OTHER ==
--- OUTSIDE RECORDS SUMMARY | 2019-12-31 13:47 | XMS REPORT | Summary of Care ---
:1955 Author Organization [facility] Address [address] [place] [address] Care Team Providers Name Role Phone Shruthi Zimmerman Primary Care Provider Reason for Visit Reason Comments Follow Up 3 wk fu right shoulder. Patient states her right shoulder is alittle bit better, but she still thinks theres a grinding. Patient still complains of neck pain with the arm pain. Patient states the injection did nothing. Encounter Details Date Type Department Care Team Description 12/16/2019 Office Visit Nathanael Shaw, Arthralgia of right Orthopedics acromioclavicular joint [address] (Primary Dx) [place] [address] [address] [phone] [place] [address] [phone] Allergies Active Allergy Reactions Severity Noted Date Comments Becca 10/21/2007 "all antihistimines cause hyperactivity" Antihistamines, AGING ROOM HAND Reaction 02/29/2008 Diphenhydramine-Type Buspirone 10/21/2007 "buspar" Epinephrine Cardiac Reaction 03/19/2019 Morphine Dermatologic Reaction 06/13/2015 Rash and hives documented as of this encounter (statuses as of 12/16/2019) Medications Medication Sig Dispensed Refills Start Date [...] MAXIMUM DAILY DOSE = 5 CAPSULES Additional Information Patient taking differently: Indications: one in am / 1 midday and now 2 pills at HS, Reported on 06/17/2019 1:07 PM Omeprazole 40 MG Oral CAPSULE Take 1 Cap by mouth 180 Cap 1 06/22/2019 Active DELAYED RELEASE TWICE DAILY. Simethicone (GAS-X EXTRA STRENGTH Take by mouth DAILY 0 Active PO) 0700 on Empty Stomach. potassium chloride (K-DUR) 10 MEQ Take 2 Tabs by mouth 120 Tab 1 2018 Active Oral Tab CR TWICE DAILY. Rosuvastatin Calcium (CRESTOR) 20 Take 1 Tab by mouth 90 Tab 1 11/01/2019 Active MG Oral TabIndications: High DAILY. triglycerides sucralfate (CARAFATE) 1 GM Oral Take 1 Tab by mouth 120 Tab 5 11/04/2019 Active TabIndications: Gastroesophageal FOUR TIMES DAILY. reflux disease, esophagitis presence not specified clonazePAM (KLONOPIN) 0.5 MG Oral Take 0.5 mg by mouth 0 Active Tab TWICE DAILY. hydrochlorothiazide (HCTZ, ORETIC) TAKE ONE TABLET BY 90 Tab 1 11/05/2019 Active 25 MG Oral Tab MOUTH DAILY levothyroxine (SYNTHROID) 150 MCG Take 1 Tab by mouth 30 Tab 1 11/11/2019 Active Oral Tab BEFORE BREAKFAST. documented as of this encounter (statuses as of 12/16/2019) Active Problems Problem Noted Date Lumbar radiculopathy, chronic 07/19/2019 Acute pain of right shoulder 05/25/2019 Traumatic complete tear of right rotator cuff 03/19/2019 Tear of right rotator cuff 02/24/2019 Overview: Added automatically from request for surgery [id number] Bipolar affective disorder 01/28/2019 Bursitis of left [...] as of this encounter (statuses as of 12/16/2019) Resolved Problems Problem Noted Date Resolved Date Pain in beck left 07/23/2012 12/09/2013 Ulcerative colitis 01/04/2008 03/13/2009 Overview: Reports that this was actually infectious colitis documented as of this encounter (statuses as of 12/16/2019) Immunizations Name Administration Dates Next Due Influenza [...] Assigned at Date Recorded Not on file documented as of this encounter Last Filed Vital Signs Vital Sign Reading Time Taken Comments Blood Pressure 121/71 12/16/2019 3:16 PM EST Pulse 56 12/16/2019 3:16 PM EST Temperature - - Respiratory Rate - - Oxygen Saturation - - Inhaled Oxygen Concentration - - Weight 89.4 kg (197 lb) 12/16/2019 3:16 PM EST Height 170.2 cm (5' 7") 12/16/2019 3:16 PM EST Body Mass Index 30.85 12/16/2019 3:16 PM EST documented in this encounter Progress Notes Nathanael Malagon MD - 12/16/2019 2:45 PM EST Name: Marbella Fraga : 1955 Date of Service: 12/16/2019 . Chief Complaint Patient presents with ? Follow Up 3 wk fu right shoulder. Patient states her right shoulder is alittle bit better, but she still thinks theres a grinding. Patient still complains of neck pain with the arm pain. Patient states the injection did nothing. History of Present Illness: Marbella Fraga is a 64-y.o. female. The above is noted. Patient is in today for follow-up of right shoulder discomfort. On her last visit the patient states that the injection she received did littleto relieve her discomfort. Patient states that she does have intermittent paresthesias radiating to her right forearm. Physical Examination: BP 121/71 | Pulse 56 | Ht 5' 7" (1.702 m) | Wt 197 lb (89.4 kg) | BMI 30.85 kg/m Well-developed well-nourished female in minimal discomfort at rest. Patient's range of motion of right upper extremity is forward elevation to 100 degrees after which she has discomfort, abduction 115degrees after which she has discomfort. Patient is neurovascularly intact. Impression: Status post right shoulder decompression Plan: I would like to refer the patient to Dr. Stanley or Mikey for an evaluation. Patient is in agreement with seeing Dr. Jaden Jensen All questions were answered. There are no Patient Instructions on file for this visit. Author: Nathanael Malagon MD 12/16/2019 15:28 documented in this encounter Plan of Treatment Date Type Specialty Care Team Description 12/23/2019 Office Visit [facility] Shruthi Zimmerman MD [address] [place] [address] [phone] 12/23/2019 Ancillary Procedure Radiology 01/26/2020 Office Visit Orthopedics Zackary Stanley MD [address] [address] [phone] Health Maintenance Due Date Last Done Comments MEDICARE ANNUAL WELLNESS 06/19/2019 06/19/2018 VISIT MAMMOGRAM (SCREENING) 09/17/2019 09/17/2018, 09/08/2017, 09/03/2016, Additional history exists DEPRESSION SCREENING 03/17/2020 03/17/2019, 03/17/2019 ZOSTER IMMUNIZATION SERIES 10/04/2020 Postponed from (1 of 2) 2007 (Vaccine not available) LIPID DISORDER SCREENING 11/01/2020 11/01/2019, 09/03/2016, 01/16/2016, Additional history exists DIABETES SCREENING 12/02/2020 12/02/2019, 11/04/2019, 10/04/2019, Additional history exists Colonoscopy 01/01/2021 01/01/2018, 01/01/2018, [...] Problems Progress Blood Pressure Blood Pressure Hypertension 121/71 No Erasmo, < 140/90 (12/16/2019 Shruthi, 3:16 PM EST) Note: Hypertension Care Plan Based [...] Educational Resources: National Heart, Lung, & Blood Mobile http://nhlbi.nih.gov/hbp/index.html The DASH Diet Eating Plan http://www.nhlbi.nih.gov/health/health-topics/ topics/dash/ Academy of Nutrition & DIetetics http://eatright.org National Smoking Cessation Site http://smokefree.gov Blood Pressure < Blood Pressure 121/71 (12/16/2019 No Shruthi Zimmerman, 140/90 3:16 PM EST) Note: This is an individualized [...] quit:no Discussed smoking cessation plan according to [facility] guidelines:counseled patient on the risks of tobacco [...] counseling Weight loss vs. 18 mo Lifestyle 34.6 (12/16/2019 3:16 PM No Shruthi Zimmerman MD max (lbs) [...] filedocumented in this encounter Visit Diagnoses Diagnosis Arthralgia of right acromioclavicular joint Pain in joint, shoulder region documented in this encounter Insurance Payer Benefit Plan / Subscriber ID Effective Dates Phone Address Type Group MEDICARE MEDICARE PART A [id number] 2008-Present Medicare & B LIFETIME LIFETIME BENEFIT [id number] 2015-[facility] [employer] [phone] (Work) documented as of this encounter
--- OUTSIDE RECORDS SUMMARY | 2019-12-31 13:47 | XMS REPORT | Summary of Care ---
:1955 Author Organization [facility] Address [address] [place] [address] Care Team Providers Name Role Phone Shruthi Zimmerman Primary Care Provider Reason for Visit Reason Comments Medicare Well Visit tawana, in Dr Casarez office, uriologist in [place] , Dr gonzalez, Dr Reese , Dr Riojas , Dr osorio , Dr pandey Encounter Details Date Type Department Care Team Description 12/23/2019 Office Visit [facility], Medicare annual wellness visit, subsequent (Primary Dx); Practice MD Shruthi Dyslipidemia; [address] Thrombocytosis (HCC) [place] [address] [place] [address] [phone] Allergies Active Allergy Reactions Severity Noted Date Comments Becca 10/21/2007 "all antihistimines cause hyperactivity" Antihistamines, 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 hydrochlorothiazide (HCTZ, ORETIC) TAKE ONE TABLET BY 90 Tab 1 11/05/2019 Active 25 MG Oral Tab MOUTH DAILY levothyroxine (SYNTHROID) 150 MCG Take 1 Tab by mouth 30 Tab 1 11/11/2019 Active Oral Tab BEFORE BREAKFAST. documented as of this encounter (statuses as of 12/23/2019) Active Problems Problem Noted Date Lumbar radiculopathy, chronic 07/19/2019 Acute pain of right shoulder 05/25/2019 Traumatic complete tear of right rotator cuff 03/19/2019 Tear of right rotator cuff 02/24/2019 Overview: Added automatically from request for surgery [id number] Bipolar affective disorder 01/28/2019 Bursitis of left [...] as of this encounter (statuses as of 12/23/2019) Resolved Problems Problem Noted Date Resolved Date Pain in beck left 07/23/2012 12/09/2013 Ulcerative colitis 01/04/2008 03/13/2009 Overview: Reports that this was actually infectious colitis documented as of this encounter (statuses as of 12/23/2019) Immunizations Name Administration Dates Next Due Influenza [...] Sign Reading Time Taken Comments Blood Pressure 122/70 12/23/2019 1:34 PM EDT Pulse 59 12/23/2019 1:34 PM EDT Temperature 37.2 12/23/2019 1:34 PM EDT C (99 F) Respiratory Rate - - Oxygen Saturation 97% 12/23/2019 1:34 PM EDT Inhaled Oxygen Concentration - - Weight 88.6 kg (195 lb 6.4 oz) 12/23/2019 1:34 PM EDT Height 163.8 cm (5' 4.5") 12/23/2019 1:34 PM EDT Body Mass Index 33.02 12/23/2019 1:34 PM EDT documented in this encounter Patient Instructions Patient InstructionsShruthi Zimmerman MD - 12/23/2019 1:20 PM EDT1. Schedule fasting blood tests in 1 month 2. Follow up after the tests and as needed documented in this encounter Progress Notes Shruthi Zimmerman MD - 12/23/2019 1:20 PM EDT PATIENT: Marbella Fraga : 1955 DATE OF SERVICE: 12/23/2019 OBJECTIVE: Subjective Marbella Fraga is a 64-y.o. female who presents for a Medicare Wellness Visit. Marbella Fraga States that her current providers and suppliers regularly involved in providing medical care: Dr Osman, uriologist in [place] , Dr Gonzalez (psychiatrist) , Dr Reese (school psychology specialist) , Dr Riojas , Dr Perez , Dr Pandey. Past Medical History: Diagnosis Date ? Bipolar affective disorder (HCC) ? BMI 36.0-36.9,adult ? Cervical dysplasia cryo- in 80s ? Colon polyp Adenoma ? DJD (degenerative joint disease) ? Fatty liver ? Fibromyalgia ? GERD (gastroesophageal reflux disease) ? Hemorrhoid ? Hypertension ? Hypothyroidism ? Ulcerative colitis history of, resolved Family History Problem Relation Age of Onset ? High Cholesterol Mother ? Hypertension Mother ? Arthritis Mother ? GI Mother ? Psychiatry Mother ? Thyroid Mother ? Heart Father ? High Cholesterol Father ? Alcohol/Drug Father ? Arthritis Father ? Psychiatry Father ? Stroke Father ? Breast Cancer Maternal Aunt ? Ovarian Cancer Maternal Aunt ? Psychiatry Sister ? GI Sister celiac ? Psychiatry Brother ? Heart Unknown [place], father, sister ? Hypertension Unknown mother ? Stroke Unknown father ? Asthma Daughter ? Allergies No family history ? Blood Disease No family history ? Cancer No family history ? Diabetes No family history ? Genetic No family history ? Genitourinary () No family history ? Seizures No family history ? Respiratory No family history Current Outpatient Medications Medication Sig ? acetaminophen (TYLENOL) 325 MG Oral Tab Take 650 mg by mouth EVERY FOUR HOURS NEEDED forPain. ? Aspirin 81 MG Oral Tab Take 81 mg by mouth. ? clonazePAM (KLONOPIN) 0.5 MG Oral Tab Take 1 mg by mouth DAILY. ? duloxetine (CYMBALTA) 30 MG Oral CAPSULE ENTERIC COATED PARTICLES Take 60 mg by mouth DAILY. ? gabapentin (NEURONTIN) 300 MG Oral Cap TAKE 1 CAPSULE EVERY MORNING, 1 MIDDAY AND 3 AT BEDTIME MAXIMUM DAILY DOSE = 5 CAPSULES (Patient taking differently: Indications: one in am / 1 midday andnow 2 pills at HS) ? hydrochlorothiazide (HCTZ, ORETIC) 25 MG Oral Tab TAKE ONE TABLET BY MOUTH DAILY ? Lactobacillus Rhamnosus, GG, (CULTURELLE) Oral Cap Take 1 Cap by mouth DAILY. ? lamotrigine (LAMICTAL) 100 MG Oral Tab Take 200 mg by mouth DAILY. Indications: taking 150mg ? levothyroxine (SYNTHROID) 150 MCG Oral Tab Take 1 Tab by mouth BEFORE BREAKFAST. ? lithium 300 MG Oral Tab Take 1 Tab by mouth TWICE DAILY. ? Omeprazole 40 MG Oral CAPSULE DELAYED RELEASE Take 1 Cap by mouth TWICE DAILY. ? potassium chloride (K-DUR) 10 MEQ Oral Tab CR Take 2 Tabs by mouth TWICE DAILY. ? primidone (MYSOLINE) 50 MG Oral Tab Take 50 mg by mouth EVERY BEDTIME. ? Rosuvastatin Calcium (CRESTOR) 20 MG Oral Tab Take 1 Tab by mouth DAILY. ? Simethicone (GAS-X EXTRA STRENGTH PO) Take by mouth DAILY 0700 on Empty Stomach. ? sucralfate (CARAFATE) 1 GM Oral Tab Take 1 Tab by mouth FOUR TIMES DAILY. No current facility-administered medications for this visit. Allergies Allergen Reactions ? Becca "all antihistimines cause hyperactivity" ? 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 Buspirone "buspar" ? Epinephrine Cardiac Reaction ? Morphine Dermatologic Reaction Rash and hives Social History Socioeconomic History ? Marital status: Spouse name: Not on file ? Number of children: Not on file ? Years of education: Not on file ? Highest education level: Not on file Occupational History ? Not on file Social Needs ? Financial resource strain: Not on file ? Food insecurity Worry: Not on file Inability: Not on file ? Transportation needs Medical: Not on file Non-medical: Not on file Tobacco Use ? Smoking status: Former Smoker Packs/day: 0.00 Years: 29.00 Pack years: 0.00 Last attempt to quit: 01/12/2016 Years since quittin.9 ? Smokeless tobacco: Never Used ? Tobacco comment: smokes E-Cig now Substance and Sexual Activity ? Alcohol use: No Alcohol/week: 0.0 standard drinks ? Drug use: No ? Sexual activity: Yes Lifestyle ? Physical activity Days per week: Not on file Minutes per session: Not on file ? Stress: Not on file Relationships ? Social connections Talks on phone: Not on file Gets together: Not on file Attends yarsanism service: Not on file Active member of club or organization: Not on file Attends meetings of clubs or organizations: Not on file Relationship status: Not on file ? Intimate partner violence Fear of current or ex partner: Not on file Emotionally abused: Not on file Physically abused: Not on file Forced sexual activity: Not on file Other Topics Concern ? Back Care Not Asked ? Bike Helmet Not Asked ? Blood Transfusions Not Asked ? Caffeine Concern Not Asked ? Exercise Not Asked ? Hobby Hazards Not Asked ? International Travel Not Asked ? Service Not Asked ? Occupational Exposure Not Asked ? Seat Belt Not Asked ? Self-Exams Not Asked ? Sleep Concern Not Asked ? Special Diet Not Asked ? Stress Concern Not Asked ? Weight Concern Not Asked Social History Narrative Lives in [place] with and daughter. On disability. Dogs and guinea pig in home. Smokes ppd. BP 122/70 (BP Location: Left arm, Patient Position: Sitting) | Pulse 59 | Temp 99 F (37.2 C) | Ht 5' 4.5" (1.638 m) | Wt 195 lb 6.4 oz (88.6 kg ) | SpO2 97% | BMI 33.02 kg/m Sn[facility] Eye Exam Results: 20/25. Health Risk Assessment What is your age? 64-y.o. Are you male or female? female What is your Race? During the past four weeks, how would you rate your health? Good Do you require help to perform your personal needs such as eating, bathing, dressing, or getting around the house? no Can you go shopping for groceries or clothes without someone's help? yes Can you do your housework without help? yes Can you prepare your own meals? yes Do you have trouble taking medications as prescribed? no Can you handle your own money and finances without help? yes During the past four weeks, was someone available to help you if you needed and wanted help (for example, someone to talk to, help with daily chores, etc.)? Yes , as much as I wanted How Confident are you that you can control and manage most of your health problems? Somewhat Confident During the past four weeks, what was the hardest physical activity you could do for at least 2 minutes? Moderate (like brisk walking, golfing, or gardening) Do you exercise for about 20 minutes 3 or more days a week? no Do any of these things cause you stress? Finances, Medical Issues and Living Situation During the past four weeks, how much bodily pain have you had? Mild pain In general, are you satisfied with the quality of your life? yes On a typical day, how many servings of fruits and vegetables do you eat? 0-1 How many servings of high fat foods do you eat per day (example, fried chicken, potato chips, foods made with milk, cream cheese or mayonnaise)? 1-2- Do you receive assistance with meals such as meals on wheels or help from friends, family, or neighbors? no Do you have teeth or denture problems? yes Date of last dental cleaning/check up: 6 months ago How often do you use your seat belt? Always During the past four weeks, how many drinks of beer, wine, or other alcoholic beverages have you had? None at all Date of last eye exam: 1 month ago Name of customer service professional: Dr. Sampson Objective: BP 122/70 (BP Location: Left arm, Patient Position: Sitting) Pulse 59 Temp 99 F (37.2 C) Ht 5' 4.5" (1.638 m) Wt 195 lb 6.4 oz (88.6 kg) SpO2 97% BMI 33.02 kg/m2 GENERAL: alert, fatigued HEAD: normocephalic, without obvious abnormality EYES: conjunctivae/corneas clear. Pupils equal, round, reactive to light. Equal ocular movements intact. EARS: normal tympanic membranes and external ear canals, bilaterally NOSE: Nares normal. Septum midline. Mucosa normal. No drainage or sinus tenderness. THROAT: lips, mucosa, and tongue normal: teeth and gums normal NECK: supple, symmetrical, trachea midline, no adenopathy and thyroid: not enlarged, symmetric, notenderness/mass/nodules LUNGS: clear to auscultation bilaterally BREASTS: normal appearance, no masses or tenderness HEART: regular rate and rhythm, S1, S2 normal, no murmur, click, rub or gallop ABDOMEN: soft, non-tender. Bowel sounds normal. No masses, no organomegaly EXTREMITIES: extremities normal, atraumatic, no cyanosis or edema PULSES: 2+ and symmetric SKIN: Skin color, texture, turgor normal. No rashes or suspicious lesions. LYMPH NODES: cervical, supraclavicular, and axillary nodes normal. NEUROLOGIC: Grossly normal CBC- elevated Platelets, CMP, , TSH - normal Component Latest Ref Rng & Units 12/02/2019 12/02/2019 12/02/2019 12/02/2019 2:41 PM 2:41 PM 2:41 PM 2:41 PM 2:41 PM WBC COUNT 3.98 - 10.04 K/uL 9.44 RBC 3.93 - 5.22 M/UL 4.29 Hemoglobin 11.2 - 15.7 g/dL 12.3 Hematocrit 34.1 - 44.9 % 39.2 MCV 79.4 - 94.8 FL 91.4 MCH 25.6 - 32.2 PG 28.7 MCHC 32.2 - 35.5 g/dL 31.4 (L) Platelet Count 182 - 369 K/uL 530 (H) MPV 9.4 - 12.3 FL 9.8 RDW 11.7 - 14.4 % 13.1 NEUTROPHILS 34.0 - 71.1 % 57.9 Lymphocyte % 19.3 - 51.7 % 30.5 MONOCYTES 4.7 - 12.5 % 6.1 Eosinophils 0.7 - 5.8 % 3.8 Basophil % 0.1 - 1.2 % 1.5 (H) nRBC % 0.0 - 0.2 % 0.0 Neutrophil # 1.56 - 6.13 K/UL 5.46 Lymphocyte # 1.18 - 3.74 K/UL 2.88 Monocyte # 0.24 - 0.86 K/UL 0.58 Eosinophil # 0.04 - 0.36 K/UL 0.36 Basophil # 0.01 - 0.08 K/UL 0.14 (H) Immature Gran % 0.0 - 0.4 % 0.2 Immature Gran # 0.00 - 0.03 K/uL 0.02 NRBC # 0.00 - 0.12 K/uL 0.00 Glucose (Lab) 70 - 99 mg/dl 107 (H) BUN 7 - 17 mg/dl 17 Creatinine 0.7 - 1.2 mg/dl 1.1 Sodium 134 - 145 mmol/L 135 Potassium 3.5 - 5.1 mmol/L 3.9 Chloride 98 - 107 mmol/L 98 CO2 22 - 30 mmol/L 30 Calcium 8.3 - 10.1 mg/dl 9.5 eGFR See Interpretation Below ml/min/1.73ml Sq 50 BUN/Creatinine Ratio 6 - 22 RATIO 15 Anion Gap 3 - 11 mmol/L 7 Protein,Total 6.3 - 8.2 g/dl 6.7 Albumin 3.5 - 5.0 g/dl 4.0 Total Bilirubin 0.0 - 1.1 MG/DL 0.4 Direct Bilirubin 0.0 - 0.3 MG/DL 0.0 AST 15 - 46 U/L 26 ALT 9 - 52 U/L 31 ALKALINE PHOSPHATASE 40 - 150 U/L 135 A/G Ratio 0.8 - 2.0 ratio 1.5 TSH 0.47 - 4.68 uIu/ml 0.66 Free T4 0.8 - 2.2 NG/DL 1.5 Patient advised on tests results ICD-9-CM ICD-10-CM 1. Medicare annual wellness visit, subsequent V70.0 Z00.00 EPSDT VISUAL SCREEN Patient Instructions 1. Schedule fasting blood tests in 1 month 2. Follow up after the tests and as needed Author: Shruthi Zimmerman MD 12/23/2019 13:45 documented in this encounter Plan of Treatment Date Type Specialty Care Team Description 01/26/2020 Office Visit Orthopedics Zackary Stanley MD [address] [address] Name Type Priority Associated Diagnoses Order Schedule COMPREHENSIVE METABOLIC Lab Routine Dyslipidemia Expected: 12/23/2019 PANEL (Approximate), Expires: 12/22/2020 LIPID PROFILE Lab Routine Dyslipidemia Expected: 12/23/2019 (Approximate), Expires: 12/22/2020 CBC WITH DIFFERENTIAL Lab Routine Thrombocytosis (HCC) Expected: 12/23/2019 (Approximate), Expires: 12/22/2020 Health Maintenance Due Date Last Done Comments CT Colonography 1955 FIT-DNA 1955 Sigmoidoscopy 1955 FIT/FOBT 02/25/2009 02/26/2008 MEDICARE ANNUAL WELLNESS 06/19/2019 06/19/2018 VISIT MAMMOGRAM (SCREENING) 09/17/2019 09/17/2018, 09/08/2017, 09/03/2016, Additional history exists DEPRESSION SCREENING 03/17/2020 03/17/2019, 03/17/2019 ZOSTER IMMUNIZATION SERIES 10/04/2020 Postponed from (1 of 2) 2007 (Vaccine not available) LIPID DISORDER SCREENING 11/01/2020 11/01/2019, 09/03/2016, 01/16/2016, Additional history exists DIABETES SCREENING 12/02/2020 12/02/2019, 11/04/2019, 10/04/2019, Additional history exists Colonoscopy 01/01/2021 01/01/2018, 01/01/2018, 2015, Additional history exists Colonoscopy 01/01/2021 01/01/2018, 01/01/2018, 09/10/2011 Colorectal Cancer Screening 01/01/2021 PAP SMEAR 06/19/2021 06/19/2018, 06/13/2015, 06/13/2015, Additional [...] Problems Progress Blood Pressure Blood Pressure Hypertension 122/70 No Erasmo, < 140/90 (12/23/2019 Shruthi, 1:34 PM EDT) Note: Hypertension Care Plan Based [...] Educational Resources: National Heart, Lung, & Blood [place] http://nhlbi.nih.gov/hbp/index.html The DASH Diet Eating Plan http://www.nhlbi.nih.gov/health/health-topics/ topics/dash/ Academy of Nutrition & DIetetics http://eatright.org National Smoking Cessation Site http://smokefree.gov Blood Pressure < Blood Pressure 122/70 (12/23/2019 No Shruthi Zimmerman, 140/90 1:34 PM EDT) Note: This is an individualized [...] counseling Weight loss vs. 18 mo Lifestyle 36.6 (12/23/2019 2:17 PM No Shruthi Zimmerman MD max (lbs) [...] ongoing basis. documented as of this encounter Procedures Procedure Name Priority Date/Time Associated Diagnosis Comments EPSDT VISUAL SCREEN Routine 12/23/2019 1:38 PM Medicare annual Results for this EDT wellness visit, procedure are in subsequent the results section. documented in this encounter Results EPSDT VISUAL SCREEN (12/23/2019 1:38 PM EDT) Vision Corrected? y [facility] PO[facility] Visual Acuity (Right) n [facility] Visual Acuity (Left) n [facility] PO[facility] Visual Acuity (Both) 20/25/ [facility] Color Vision n [facility] PO[facility] (Norml/Abnormal/NA) Specimen Performing Organization Address [facility] Phone Number [facility] [address] [address] [address] documented in this encounter Visit Diagnoses Diagnosis Medicare annual wellness visit, subsequent Routine general medical examination at a health care facility Dyslipidemia Other and unspecified hyperlipidemia Thrombocytosis (HCC) Essential thrombocythemia documented in this encounter Insurance Payer Benefit Plan / Subscriber ID Effective Dates Phone Address Type Group MEDICARE MEDICARE PART A [id number] 2008-Present Medicare & B LIFETIME LIFETIME BENEFIT [id number] 2015-[employer] [phone] (Work) documented as of this encounter
--- OUTSIDE RECORDS SUMMARY | 2019-12-31 13:48 | XMS REPORT | Summary of Care ---
:1955 Author Organization [facility] Address [address] [place] [address] Care Team Providers Name Role Phone Shruthi Zimmerman Primary Care Provider Reason for Visit Reason Comments Follow Up Right shoulder pain. Patient has had pain since her RCR in April 2019. Patient did see Paramore and said there's nothing he can do. Encounter Details Date Type Department Care Team Description 11/25/2019 Office Visit [facility] Nathanael Malagon MD Arm pain, anterior, [address] right (Primary Dx) [place] [address] [address] [phone] [place] [address] [phone] Allergies Active Allergy Reactions Severity Noted Date Comments Becca 10/21/2007 "all antihistimines cause hyperactivity" Antihistamines, AIRCRAFT DISPATCHER Reaction 02/29/2008 Diphenhydramine-Type Buspirone 10/21/2007 "buspar" Epinephrine Cardiac Reaction 03/19/2019 Morphine Dermatologic Reaction 06/13/2015 Rash and hives documented as of this encounter (statuses as of 11/28/2019) Medications Medication Sig Dispensed Refills Start Date [...] DAILY. reflux disease, esophagitis presence not specified ampicillin (OMNIPEN, POLYCILLIN-N) Take 500 mg by mouth 0 Active 500 MG Oral Cap FOUR TIMES DAILY. clonazePAM (KLONOPIN) 0.5 MG Oral Take 0.5 mg by mouth 0 Active Tab TWICE DAILY. hydrochlorothiazide (HCTZ, ORETIC) TAKE ONE TABLET BY 90 Tab 1 11/05/2019 Active 25 MG Oral Tab MOUTH DAILY levothyroxine (SYNTHROID) 150 MCG Take 1 Tab by mouth 30 Tab 1 11/11/2019 Active Oral Tab BEFORE BREAKFAST. Hospital, Clinic, or Other Ordered Dose Route Frequency Start Date End Date Status Facility Administered Medication methylPREDNISolone acetate 80 mg IX NOW 11/25/2019 11/25/2019 Ended (DEPO-MEDROL) injection 80 MG/MLIndications: Arm pain, anterior, right documented as of this encounter (statuses as of 11/28/2019) Active Problems Problem Noted Date Lumbar radiculopathy, chronic 07/19/2019 Acute pain of right shoulder 05/25/2019 Traumatic complete tear of right rotator cuff 03/19/2019 Tear of right rotator cuff 02/24/2019 Overview: Added automatically from request for surgery [id number] Bipolar affective disorder 01/28/2019 Bursitis of left [...] as of this encounter (statuses as of 11/28/2019) Resolved Problems Problem Noted Date Resolved Date Pain in beck left 07/23/2012 12/09/2013 Ulcerative colitis 01/04/2008 03/13/2009 Overview: Reports that this was actually infectious colitis documented as of this encounter (statuses as of 11/28/2019) Immunizations Name Administration Dates Next Due Influenza [...] Sign Reading Time Taken Comments Blood Pressure 133/80 11/25/2019 3:35 PM EST Pulse 64 11/25/2019 3:35 PM EST Temperature - - Respiratory Rate - - Oxygen Saturation - - Inhaled Oxygen Concentration - - Weight 87.1 kg (192 lb) 11/25/2019 3:35 PM EST Height 170.2 cm (5' 7") 11/25/2019 3:35 PM EST Body Mass Index 30.07 11/25/2019 3:35 PM EST documented in this encounter Progress Notes Nathanael Malagon MD - 11/25/2019 3:45 PM EST Name: Marbella Fraga : 1955 Date of Service: 11/25/2019 Chief Complaint Patient presents with ? Follow Up Right shoulder pain. Patient has had pain since her RCR in April 2019. Patient did see Paramore andsaid there's nothing he can do. History of Present Illness: Marbella Fraga is a 64-y.o. female. The above is noted. Patient is in today complaining of right shoulder discomfort patient states that she has had pain since her rotator cuff repair/decompression was performed in April 2019. She also complains of pain that radiates down her right upper extremity. She has been seen by pain management/Dr. Ceballos who is no longer with the institution and is in today for follow-up. She was previously seen by Latrice Baldwin on 08/17/2019 and referred to neurosurgery. Patient states she has not gone to see a neurosurgeon. Physical Examination: BP 133/80 | Pulse 64 | Ht 5' 7" (1.702 m) | Wt 192 lb (87.1 kg) | BMI 30.07 kg/m Well-developed well-nourished female in minimal discomfort at rest. She is accompanied by her . The patient does have tenderness on palpation of her right anterior inferior acromion and right lateral acromion. The patient has forward elevation to 90 degrees after which she has discomfort abduction to 100 degrees after which she has discomfort. Patient has positive impingement sign 1 and positive impingement sign 2 Impression: Impingement right shoulder Plan: The patient was offered an injection of depomedrol. There was not a contraindication to injection ofMarcaine and 80mg depomedrol. The right shoulder was prepped with betadine and alcohol. Then with a 22 gauge needle the rightshoulderwas injected. she tolerated the injection well. Afterwards , a sterile band aid was used to cover the puncture site. Follow-up in 3 weeks; all questions were answered. There are no Patient Instructions on file for this visit. Author: Nathanael Malagon MD 11/25/2019 16:02 documented in this encounter Plan of Treatment Date Type Specialty Care Team Description 12/02/2019 Office Visit Family Practice Shruthi Zimmerman MD [address] [place] [address] [phone] 12/16/2019 Office Visit Orthopedics Nathanael Malagon MD [address] [facility] [place] [address] [phone] Name Type Priority Associated Diagnoses Order Schedule INJECTION, JOINT Procedures Routine Arm pain, anterior, Ordered: 11/25/2019 SHOUDLER HIP KNEE OR right [facility] Health Maintenance Due Date Last Done Comments MEDICARE ANNUAL WELLNESS 06/19/2019 06/19/2018 VISIT MAMMOGRAM (SCREENING) 09/17/2019 09/17/2018, 09/08/2017, 09/03/2016, Additional history exists DEPRESSION SCREENING 03/17/2020 03/17/2019, 03/17/2019 ZOSTER IMMUNIZATION SERIES 10/04/2020 Postponed from (1 of 2) 2007 (Vaccine not available) LIPID DISORDER SCREENING 11/01/2020 11/01/2019, 09/03/2016, 01/16/2016, Additional history exists DIABETES SCREENING 11/04/2020 11/04/2019, 10/04/2019, 09/27/2019, Additional history exists Colonoscopy 01/01/2021 01/01/2018, 01/01/2018, [...] Problems Progress Blood Pressure Blood Pressure Hypertension 133/80 No Erasmo, < 140/90 (11/25/2019 Shruthi, 3:35 PM EST) Note: Hypertension Care Plan Based [...] Educational Resources: National Heart, Lung, & Blood [place] http://nhlbi.nih.gov/hbp/index.html The DASH Diet Eating Plan http://www.nhlbi.nih.gov/health/health-topics/ topics/dash/ Academy of Nutrition & DIetetics http://eatright.org National Smoking Cessation Site http://smokefree.gov Blood Pressure < Blood Pressure 133/80 (11/25/2019 No Shruthi Zimmerman, 140/90 3:35 PM EST) Note: This is an individualized [...] counseling Weight loss vs. 18 mo Lifestyle 39.6 (11/25/2019 3:35 PM No Shruthi Zimmerman MD max (lbs) [...] filedocumented in this encounter Visit Diagnoses Diagnosis Arm pain, anterior, right documented in this encounter Administered Medications Medication Order MAR Action Action Date Dose Rate Site methylPREDNISolone acetate Given 11/25/2019 4:33 80 mg Shoulder - Right (DEPO-MEDROL) injection 80 PM EST MG/ML 80 mg, Intra-articular, NOW, 1 dose, Doreen 11/25/19 at 1640 documented in this encounter Insurance Payer Benefit Plan / Subscriber ID Effective Dates Phone Address Type Group MEDICARE MEDICARE PART A [id number] 2008-Present Medicare & B LIFETIME LIFETIME BENEFIT [id number] 2015-Pres [employer] [phone] (Work) documented as of this encounter
--- OUTSIDE RECORDS SUMMARY | 2019-12-31 13:48 | XMS REPORT | Summary of Care ---
:1955 Author Organization [facility] Address [address] [place] [address] Care Team Providers Name Role Phone Shruthi Zimmerman Primary Care Provider Reason for Visit Reason Comments Transitional Care Management obstuctive jaundice Encounter Details Date Type Department Care Team Description 12/02/2019 Office Visit [facility] Erasmo Jaundice (Primary Dx); Practice MD Shruthi Hypothyroidism, unspecified type; [address] Hypokalemia [place], [place] [id number] [place] [address] [phone] Allergies Active Allergy Reactions Severity Noted Date Comments Becca 10/21/2007 "all antihistimines cause hyperactivity" Antihistamines, CURATOR OF PHOTOGRAPHY AND PRINTS Reaction 02/29/2008 Diphenhydramine-Type Buspirone 10/21/2007 "buspar" Epinephrine Cardiac Reaction 03/19/2019 Morphine Dermatologic Reaction 06/13/2015 Rash and hives documented as of this encounter (statuses as of 12/02/2019) Medications Medication Sig Dispensed Refills Start Date [...] Active CAPSULE DELAYED RELEASE mouth TWICE DAILY. Simethicone (GAS-X EXTRA Take by mouth 0 Active STRENGTH PO) DAILY 0700 on Empty Stomach. potassium chloride (K-DUR) Take 2 Tabs by 120 Tab 1 10/05/2019 Active 10 MEQ Oral Tab CR mouth TWICE DAILY. Rosuvastatin Calcium Take 1 Tab by 90 Tab 1 11/01/2019 Active (CRESTOR) 20 MG Oral mouth DAILY. TabIndications: High triglycerides sucralfate (CARAFATE) 1 GM Take 1 Tab by 120 Tab 5 11/04/2019 Active Oral TabIndications: mouth FOUR Gastroesophageal reflux TIMES DAILY. disease, esophagitis presence not specified clonazePAM (KLONOPIN) 0.5 MG Take 0.5 mg by 0 Active Oral Tab mouth TWICE DAILY. hydrochlorothiazide (HCTZ, TAKE ONE TABLET 90 Tab 1 11/05/2019 Active ORETIC) 25 MG Oral Tab BY MOUTH DAILY levothyroxine (SYNTHROID) Take 1 Tab by 30 Tab 1 11/11/2019 Active 150 MCG Oral Tab mouth BEFORE BREAKFAST. ampicillin (OMNIPEN, Take 500 mg by 0 12/02/19 Discontinued POLYCILLIN-N) 500 MG Oral mouth FOUR 20 Cap TIMES DAILY. documented as of this encounter (statuses as of 12/02/2019) Active Problems Problem Noted Date Lumbar radiculopathy, chronic 07/19/2019 Acute pain of right shoulder 05/25/2019 Traumatic complete tear of right rotator cuff 03/19/2019 Tear of right rotator cuff 02/24/2019 Overview: Added automatically from request for surgery [id number] Bipolar affective disorder 01/28/2019 Bursitis of left [...] as of this encounter (statuses as of 12/02/2019) Resolved Problems Problem Noted Date Resolved Date Pain in beck left 07/23/2012 12/09/2013 Ulcerative colitis 01/04/2008 03/13/2009 Overview: Reports that this was actually infectious colitis documented as of this encounter (statuses as of 12/02/2019) Immunizations Name Administration Dates Next Due Influenza [...] Sign Reading Time Taken Comments Blood Pressure 112/64 12/02/2019 2:05 PM EST Pulse 71 12/02/2019 2:05 PM EST Temperature 36.7 12/02/2019 2:05 PM EST C (98 F) Respiratory Rate - - Oxygen Saturation 98% 12/02/2019 2:05 PM EST Inhaled Oxygen Concentration - - Weight 88.2 kg (194 lb 8 oz) 12/02/2019 2:05 PM EST Height 170.2 cm (5' 7") 12/02/2019 2:05 PM EST Body Mass Index 30.46 12/02/2019 2:05 PM EST documented in this encounter Patient Instructions Patient InstructionsShruthi Zimmerman MD - 12/02/2019 2:00 PM EST1. Schedule Medicare wellness documented in this encounter Progress Notes Shruthi Zimmerman MD - 12/02/2019 2:00 PM EST Patient: Marbella Fraga Date of Service: 12/02/2019 Subjective: Marbella Fraga is a 64-y.o. female who presents for Chief Complaint Patient presents with ? Transitional Care Management obstuctive jaundice TCM Statement. Review of the hospitalization: I am seeing for transition of care following hospitalization. The date of discharge was: 11/20/19 The discharge diagnosis was Abdominal pain secondary to biliary obstruction. I reviewed the discharge summary, discharge instructions, [...] of the diagnosis and plan of care. The current and discharge medications were reconciled by me, today The source document was hospital discharge summary Patient undergone cholecystectomy 3 weeks before the current admission. Presented to the ER on the day before admission with complains of abdominal pain and bloating after eating fried chicken Patient was discharged home. Came back on 11/17/19 with complains of ongoing pain and juandice She undergone ERCP with papillotomy/sphincterotomy and balloon extraction of the multiple stones As a result - resolved jaundice, improved pain Still has some mild pain in the surgical area Complains of feeling tired fatigued. Past Medical History: Diagnosis Date ? Bipolar affective disorder (HCC) ? BMI 36.0-36.9,adult ? Cervical dysplasia cryo- in 80s ? Colon polyp Adenoma ? DJD (degenerative joint disease) ? Fatty liver ? Fibromyalgia ? GERD (gastroesophageal reflux disease) ? Hemorrhoid ? Hypertension ? Hypothyroidism ? Ulcerative colitis history of, resolved Outpatient Medications as of 12/02/2019 Medication Sig Dispense Refill ? acetaminophen (TYLENOL) 325 MG Oral Tab Take 650 mg by mouth EVERY FOUR HOURS NEEDED forPain. ? Aspirin 81 MG Oral Tab Take 81 mg by mouth. ? clonazePAM (KLONOPIN) 0.5 MG Oral Tab Take 0.5 mg by mouth TWICE DAILY. ? duloxetine (CYMBALTA) 30 MG Oral CAPSULE ENTERIC COATED PARTICLES Take 60 mg by mouth DAILY.60 Cap 0 ? gabapentin (NEURONTIN) 300 MG Oral Cap TAKE 1 CAPSULE EVERY MORNING, 1 MIDDAY AND 3 AT BEDTIME MAXIMUM DAILY DOSE = 5 CAPSULES (Patient taking differently: Indications: one in am / 1 midday andnow 2 pills at HS) 450 Cap 1 ? hydrochlorothiazide (HCTZ, ORETIC) 25 MG Oral Tab TAKE ONE TABLET BY MOUTH DAILY 90 Tab 1 ? Lactobacillus Rhamnosus, GG, (CULTURELLE) Oral Cap Take 1 Cap by mouth DAILY. ? lamotrigine (LAMICTAL) 100 MG Oral Tab Take 200 mg by mouth DAILY. Indications: taking 150mg ? levothyroxine (SYNTHROID) 150 MCG Oral Tab Take 1 Tab by mouth BEFORE BREAKFAST. 30 Tab 1 ? lithium 300 MG Oral Tab Take 1 Tab by mouth TWICE DAILY. 10 Tab 0 ? Omeprazole 40 MG Oral CAPSULE DELAYED RELEASE Take 1 Cap by mouth TWICE DAILY. 180 Cap 1 ? potassium chloride (K-DUR) 10 MEQ Oral Tab CR Take 2 Tabs by mouth TWICE DAILY. 120 Tab 1 ? primidone (MYSOLINE) 50 MG Oral Tab Take 50 mg by mouth EVERY BEDTIME. ? Rosuvastatin Calcium (CRESTOR) 20 MG Oral Tab Take 1 Tab by mouth DAILY. 90 Tab 1 ? Simethicone (GAS-X EXTRA STRENGTH PO) Take by mouth DAILY 0700 on Empty Stomach. ? sucralfate (CARAFATE) 1 GM Oral Tab Take 1 Tab by mouth FOUR TIMES DAILY. 120 Tab 5 No current facility-administered medications on file as of 12/02/2019. Allergies Allergen Reactions ? Becca "all antihistimines cause hyperactivity" ? Antihistamines, Diphenhydramine-Type CURATOR OF PHOTOGRAPHY AND PRINTS Reaction ? Buspirone "buspar" ? Epinephrine Cardiac Reaction ? Morphine Dermatologic Reaction Rash and hives Review of Systems: All remaining review of systems was negative. Objective: BP 112/64 (BP Location: Left arm, Patient Position: Sitting) Pulse 71 Temp 98 F (36.7 C) Ht 5' 7" (1.702 m) Wt 194 lb 8 oz (88.2 kg) SpO2 98% BMI 30.46 kg/m2 GENERAL: alert, fatigued THROAT: lips, mucosa, and tongue normal: teeth and gums normal NECK: supple, symmetrical, trachea midline and no adenopathy LUNGS: clear to auscultation bilaterally HEART: regular rate and rhythm, S1, S2 normal, no murmur, click, rub or gallop ABDOMEN: soft, minimally tender in RUQ area. Bowel sounds normal. No masses, no organomegaly SKIN: No jaundice ICD-9-CM ICD-10-CM 1. Jaundice 782.4 R17 LIVER FUNCTION PROFILE Resolved CBC WITH DIFFERENTIAL 2. Hypothyroidism, unspecified type 244.9 E03.9 THYROID STIMULATING HORMONE FREE T4 3. Hypokalemia 276.8 E87.6 BASIC METABOLIC PANEL Patient Instructions 1. Schedule Medicare wellness Author: Shruthi Zimmerman MD documented in this encounter Plan of Treatment Date Type Specialty Care Team Description 12/16/2019 Office Visit Orthopedics Nathanael Malagon MD [address] [facility] [place] [address] [phone] 12/23/2019 Office Visit Family Practice Shruthi Zimmerman MD [address] [place] [address] [phone] 12/23/2019 Ancillary Procedure Radiology Name Type Priority Associated Diagnoses Date/Time LIVER FUNCTION PROFILE Lab Routine Jaundice 12/02/2019 2:41 PM EST BASIC METABOLIC PANEL Lab Routine Hypokalemia 12/02/2019 2:41 PM EST THYROID STIMULATING Lab Routine Hypothyroidism, 12/02/2019 2:41 PM HORMONE unspecified type EST FREE T4 Lab Routine Hypothyroidism, 12/02/2019 2:41 PM unspecified type EST CBC WITH DIFFERENTIAL Lab Routine Jaundice 12/02/2019 2:41 PM EST Health Maintenance Due Date Last Done [...] Problems Progress Blood Pressure Blood Pressure Hypertension 112/64 No Erasmo, < 140/90 (12/02/2019 Shruthi, 2:05 PM EST) Note: Hypertension Care Plan Based [...] Educational Resources: National Heart, Lung, & Blood [place] http://nhlbi.nih.gov/hbp/index.html The DASH Diet Eating Plan http://www.nhlbi.nih.gov/health/health-topics/ topics/dash/ Academy of Nutrition & DIetetics http://eatright.org National Smoking Cessation Site http://smokefree.gov Blood Pressure < Blood Pressure 112/64 (12/02/2019 No Shruthi Zimmerman, 140/90 2:05 PM EST) Note: This is an individualized [...] counseling Weight loss vs. 18 mo Lifestyle 37.1 (12/02/2019 2:05 PM No Shruthi Zimmerman MD max (lbs) >= 10 EST) Note: This is an individualized lifestyle goal for Marbella Del Rosario [place]: Your body mass index (BMI) is [...] filedocumented in this encounter Visit Diagnoses Diagnosis Hypothyroidism, unspecified type Hypokalemia Hypopotassemia Jaundice Jaundice, unspecified, not of documented in this encounter Insurance Payer Benefit Plan / Subscriber ID Effective Dates Phone Address Type Group MEDICARE MEDICARE PART A [id number] 2008-Present Medicare & B LIFETIME LIFETIME BENEFIT [id number] 2015-[id number] [phone] (Work) documented as of this encounter
--- OUTSIDE RECORDS SUMMARY | 2019-12-31 13:48 | XMS REPORT | Continuity of Care Document ---
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 Problems Active Problems Provider Date Mixed hyperlipidemia Gisselle White, [facility] Onset: 12/29/2013 Concussion injury of body structure Onset: Diverticulitis of intestine Onset: Dizziness Onset: Fall Onset: Fall due to slipping on ice or snow Onset: Fall in home Onset: Steatosis of liver Onset: Gastrointestinal hemorrhage Onset: Hypokalemia Onset: Intracranial hemorrhage Onset: Contusion of lower back Onset: Nausea Onset: Syncope Onset: Social History Type Date Description Comments Sex Unknown Tobacco Use Start: Unknown End: Quit but uses the E cig Unknown ETOH Use Denies alcohol use Tobacco Use Start: Unknown End: E-cigarette Unknown Recreational Drug Use Denies Drug Use Tobacco Use Start: Unknown End: Patient is a former Unknown smoker Smoking Status Reviewed: 12/07/19 Patient is a former smoker Exercise Type/Frequency Exercises rarely Allergies, Adverse Reactions, Alerts Active Allergies Reaction Severity Comments Date Epinephrine sob, feeling of impending doom 12/29/2013 Medications Active Medications SIG Qnty Indications Ordering Date Provider Sucralfate 4 Times/Day Unknown 1gm Tablets Rosuvastatin Calcium AT Bedtime Unknown 20mg Tablets [place] Carbonate 2 Times A Day Unknown 300mg Capsules Levothyroxine Sodium Once Daily Unknown 150mcg Tablets Potassium Chloride Simi ER 4 by mouth every Unknown 10Meq day Tablets ER Primidone 1 by mouth every Unknown 50mg Tablets day Aspir-Low daily Unknown 81mg Tablets DR Clonazepam 1/2 in am , 1/2 Unknown 1mg Tablets in pm Cymbalta 2 po qd Unknown 30mg Caps DR Part Lamotrigine 2 po qd Unknown 100mg Tablets Omeprazole 1 po in am , 1po 90caps Unknown 40mg Capsules DR in pm Hydrochlorothiazide 1 po qd 90tabs Unknown 12.5mg Tablets Gabapentin 1 in am , 1 in 42caps Unknown 300mg Capsules afternoon and 2 at night History Medications Ampicillin Every 6 Hours 32caps Unknown 10/27/2019 - 500mg Capsules 11/17/2019 Polyethylene Glycol Once Daily as needed 30units Unknown 10/27/2019 - 3350 for constipation 11/04/2019 3350NF Powder Acetaminophen-Codeine Every 6 Hours as needed 14tabs Unknown 10/26/2019 - #3 for Severe Pain 11/04/2019 300-30mg Tablets Dicyclomine HCL 4 Times A Day 14tabs Unknown 10/22/2019 - 20mg 11/04/2019 Tablets Famotidine Every 6 Hours 14tabs Unknown 10/22/2019 - 20mg Tablets 11/04/2019 Medications Administered in Office Medication SIG Qnty Indications Ordering Provider Date Methylprednisolone Gisselle Estes, 02/14/2014 (Depomedrol) 80mg injection RPAC Injection Immunizations Description No Information Available Vital Signs Date Vital Result Comment 12/14/2019 3:13pm BP Systolic 117 mmHg BP Diastolic 75 mmHg Body Temperature 98.8 F Heart Rate 56 /min Height 65.5 inches 5'5.50" Weight 187.00 lb BMI (Body Mass Index) 30.6 kg/m2 BSA (Body Surface Area) 1.93 m2 [place] body weight in kilograms 58 kg O2 % BldC Oximetry 97 % 12/09/2019 3:09pm BP Systolic Sitting Right Arm 127 mmHg BP Diastolic Sitting Right Arm 77 mmHg Heart Rate 69 /min Height 64.5 inches 5'4.50" Weight 197.00 lb BMI (Body Mass Index) 33.3 kg/m2 BSA (Body Surface Area) 1.95 m2 [place] body weight in kilograms 56 kg O2 % BldC Oximetry 98 % ra Results Test Acquired Facility Test Result H/L Range Note Date Sodium 11/14/2019 N2N/CCD Import Sodium Level 137 136-145 [facility] BUN/Creat SerPl 11/14/2019 N2N/CCD Import BUN/Creatinine 12.5 Ratio GFR/Bsa 11/14/2019 N2N/CCD Import Estimated GFR 59 >60 pred.black SerPl () MDRD-ArVRat GFR/Bsa pred.non 11/14/2019 N2N/CCD Import Estimated GFR 48 >60 black SerPl (Non- MDRD-ArVRat [place] Creat SerPl-mCnc 11/14/2019 N2N/CCD Import Creatinine 1.2 0.6-1.3 BUN [facility]-nc 11/14/2019 N2N/CCD Import Blood Urea 15 7-18 Nitrogen Glucose 11/14/2019 N2N/CCD Import Glucose Screen 100 74-106 [facility] nRBC # Bld Auto 11/14/2019 N2N/CCD Import Nucleated RBC 0.00 Absolute Count (auto) Imm Granulocytes 11/14/2019 N2N/CCD Import Immature 0.04 # Bld Auto Granulocyte # (Auto) Basophils # Bld 11/14/2019 N2N/CCD Import Basophils # (Auto) 0.11 High 0.0-0.1 Auto Eosinophil # Bld 11/14/2019 N2N/CCD Import Eosinophils # 0.38 0.0-0.5 Auto (Auto) Monocytes # Bld 11/14/2019 N2N/CCD Import Monocytes # (Auto) 0.67 0.3- 0.9 Auto Lymphocytes # 11/14/2019 N2N/CCD Import Lymphocytes # 2.53 1.0-4.0 Bld Auto (Auto) Neutrophils # 11/14/2019 N2N/CCD Import Neutrophils # 5.26 1.8-7.0 Bld Auto (Auto) nRBC/100 WBC Bld 11/14/2019 N2N/CCD Import Nucleated Red 0.0 < 10/ 100 Auto-Rto Blood Cells % WBC (auto) Potassium 11/14/2019 N2N/CCD Import Potassium Level 3.1 Low 3.5-5.1 SerPl-sCnc Chloride 11/14/2019 N2N/CCD Import Chloride Level 104 98-107 SerPl-sCnc Co2 SerPl-sCnc 11/14/2019 N2N/CCD Import Carbon Dioxide 26 21-32 Level Anion Gap 11/14/2019 N2N/CCD Import Anion Gap 7 Low 8-16 SerPl-sCnc Calcium 11/14/2019 N2N/CCD Import Calcium Level 9.2 8.5-10.1 SerPl-mCnc Prot SerPl-mCnc 11/14/2019 N2N/CCD Import Total Protein 7.0 6.4-8.2 Albumin 11/14/2019 N2N/CCD Import Albumin 3.4 3.4-5.0 SerPl-mCnc Globulin Ser 11/14/2019 N2N/CCD Import Globulin 3.6 1.9-4.3 Calc-mCnc Albumin/Glob 11/14/2019 N2N/CCD Import Albumin/Globulin 0.9 SerPl Ratio Bilirub 11/14/2019 N2N/CCD Import Total Bilirubin 0.4 0.2-1.0 SerPl-mCnc Ast SerPl-cCnc 11/14/2019 N2N/CCD Import Aspartate Amino 14 Low 15-37 Transf (Ast/Sgot) Alt SerPl-cCnc 11/14/2019 N2N/CCD Import Alanine 21 12-78 Aminotransferase (Alt/SGPT) Alp SerPl-cCnc 11/14/2019 N2N/CCD Import Alkaline 98 45-117 Phosphatase Lipase 11/14/2019 N2N/CCD Import Lipase 231 56-289 SerPl-cCnc Troponin I 11/14/2019 N2N/CCD Import Troponin I < 0.015 SerPl-mCnc Bacteria UrnS Ql 11/14/2019 N2N/CCD Import Urine Bacteria Few None Seen Micro Epi Cells UrnS 11/14/2019 N2N/CCD Import Urine Epithelial Few None Seen Ql Micro Cells WBC #/area UrnS 11/14/2019 N2N/CCD Import Urine WBC 6-10 0-7 HPF RBC #/area UrnS 11/14/2019 N2N/CCD Import Urine RBC 0-2 0-2 HPF Leukocyte 11/14/2019 N2N/CCD Import Urine Leukocyte Trace High Negative esterase Ur Ql Esterase Strip.auto Nitrite Ur Ql 11/14/2019 N2N/CCD Import Urine Nitrite Negative Negative Strip.auto Urobilinogen Ur 11/14/2019 N2N/CCD Import Urine Urobilinogen 0.2 0.2- 1.0 Strip-aCnc Prot Ur 11/14/2019 N2N/CCD Import Urine Protein Negative Negative Strip.auto-mCnc pH Ur Strip.auto 11/14/2019 N2N/CCD Import Urine pH 5.5 Low 6.5-7.5 Hgb Ur Ql 11/14/2019 N2N/CCD Import Urine Blood Small High Negative Strip.auto Sp Gr Ur 11/14/2019 N2N/CCD Import Urine Specific <= 1.005 Low 1.010- 1.03 Strip.auto [place] 0 Ketones Ur 11/14/2019 N2N/CCD Import Urine Ketones Negative Negative Strip.auto-mCnc Bilirub Ur Ql 11/14/2019 N2N/CCD Import Urine Bilirubin Negative Negative Strip.auto Glucose Ur 11/14/2019 N2N/CCD Import Urine Glucose (Ua) Negative Negative Strip.auto-mCnc Appearance Ur 11/14/2019 N2N/CCD Import Urine Clarity Clear Clear Color Ur 11/14/2019 N2N/CCD Import Urine Color Yellow Yellow Miscellaneous 11/14/2019 N2N/CCD Import N/A Test(s) studies added Imm 11/14/2019 N2N/CCD Import Immature 0.4 0.0-5.0 Granulocytes/pau Granulocyte % k NFr Bld Auto (Auto) Basophils/leuk 11/14/2019 N2N/CCD Import Basophils (%) 1.2 High 0.0-1.1 NFr Bld Auto (Auto) Eosinophil/leuk 11/14/2019 N2N/CCD Import Eosinophils (%) 4.2 0.0-6.6 NFr Bld Auto (Auto) Monocytes/leuk 11/14/2019 N2N/CCD Import Monocytes (%) 7.5 4.3-13.2 NFr Bld Auto (Auto) Lymphocytes/leuk 11/14/2019 N2N/CCD Import Lymphocytes (%) 28.1 20.0- 42.0 NFr Bld Auto (Auto) Neutrophils/leuk 11/14/2019 N2N/CCD Import Neutrophils (%) 58.6 40.4- 72.8 NFr Bld Auto (Auto) PMV Bld Auto 11/14/2019 N2N/CCD Import Mean Platelet 9.6 8.9-12.4 Volume RDW RBC Auto-Rto 11/14/2019 N2N/CCD Import RDW Coefficient of 13.4 11.7- 14.4 Variation WBC # XXX Auto 11/14/2019 N2N/CCD Import White Blood Count 9.0 3.1-10.7 RBC # Bld Auto 11/14/2019 N2N/CCD Import Red Blood Count 4.34 3.90-5.40 Hgb Bld-mCnc 11/14/2019 N2N/CCD Import Hemoglobin 12.5 11.6-15.8 Hct VFr Bld Auto 11/14/2019 N2N/CCD Import Hematocrit 38.6 36.0-46.1 RDW RBC Auto 11/14/2019 N2N/CCD Import Red Cell 43.8 36-47 Distribution Width Platelet # Bld 11/14/2019 N2N/CCD Import Platelet Count 394 High 155-360 Auto MCHC RBC 11/14/2019 N2N/CCD Import Mean Corpuscular 32.4 30.8-34.3 Auto-mCnc Hemoglobin Concent MCV RBC Auto 11/14/2019 N2N/CCD Import Mean Corpuscular 88.9 80.9-99.0 Volume MCH RBC Qn Auto 11/14/2019 N2N/CCD Import Mean Corpuscular 28.8 25.9- 32.7 Hemoglobin nRBC # Bld Auto 10/27/2019 N2N/CCD Import Nucleated RBC 0.00 Absolute Count (auto) Glucose 10/27/2019 N2N/CCD Import Glucose Screen 80 74-106 SerPl-mCnc BUN SerPl-mCnc 10/27/2019 N2N/CCD Import Blood Urea 11 7-18 Nitrogen Creat SerPl-mCnc 10/27/2019 N2N/CCD Import Creatinine 1.1 0.6-1.3 GFR/Bsa pred.non 10/27/2019 N2N/CCD Import Estimated GFR 53 >60 black SerPl (Non- MDRD-ArVRat [place] GFR/Bsa 10/27/2019 N2N/CCD Import Estimated GFR >60 >60 pred.black SerPl () MDRD-ArVRat BUN/Creat SerPl 10/27/2019 N2N/CCD Import BUN/Creatinine 10.0 Ratio Sodium 10/27/2019 N2N/CCD Import Sodium Level 142 136-145 SerPl-sCnc Potassium 10/27/2019 N2N/CCD Import Potassium Level 3.6 3.5-5.1 SerPl-sCnc Chloride 10/27/2019 N2N/CCD Import Chloride Level 109 High 98-107 SerPl-sCnc Co2 SerPl-sCnc 10/27/2019 N2N/CCD Import Carbon Dioxide 25 21-32 Level Anion Gap 10/27/2019 N2N/CCD Import Anion Gap 8 8-16 SerPl-sCnc Calcium 10/27/2019 N2N/CCD Import Calcium Level 8.9 8.5-10.1 SerPl-mCnc CRP SerPl-mCnc 10/27/2019 N2N/CCD Import C-Reactive 87.6 High <3.0 Protein, Quantitative CBC W/Automated 10/27/2019 [facility] White Blood Count 13.6 K/uL High 3.1- 10.7 1 Diff [address] [place], [place] [id number] [phone] Red Blood Count 4.08 M/uL Normal 3.90-5.40 Hemoglobin 11.8 gm/dL Normal 11.6-15.8 Hematocrit 38.1 % Normal 36.0-46.1 Mean Cell Volume 93.4 fl Normal 80.9-99.0 Mean Corpuscular HGB 28.9 pg Normal 25.9-32.7 Mean Corpuscular HGB Conc 31.0 g/dL Normal 30.8-34.3 Platelet Count 366 K/uL High 155-360 Red Cell Distri Width SD 46.7 fl Normal 36-47 Red Cell Distri Width %CV 13.7 % Normal 11.7-14.4 Mean Platelet Volume 10.2 fl Normal 8.9-12.4 Neut% 66.2 % Normal 40.4-72.8 Lymph % 20.4 % Normal 20.0-42.0 [place] % 8.0 % Normal 4.3-13.2 Eo% 3.5 % Normal 0.0-6.6 Bas% 0.8 % Normal 0.0-1.1 Immature Grans 1.1 % Normal 0.0-5.0 NRBC % 0.0 /100WBC < 10/ 100 WBC Neut# 8.96 K/uL High 1.8-7.0 Lymph # 2.77 K/uL Normal 1.0-4.0 [place] # 1.09 K/uL High 0.3-0.9 Eos # 0.48 K/uL Normal 0.0-0.5 Baso # 0.11 K/uL High 0.0-0.1 Immature Grans Absolute 0.15 K/uL NRBC # 0.00 K/uL MCV RBC Auto 10/27/2019 N2N/CCD Import Mean Corpuscular 93.4 80.9-99.0 Volume MCH RBC Qn Auto 10/27/2019 N2N/CCD Import Mean Corpuscular 28.9 25.9- 32.7 Hemoglobin MCHC RBC 10/27/2019 N2N/CCD Import Mean Corpuscular 31.0 30.8-34.3 Auto-mCnc Hemoglobin Concent RDW RBC Auto 10/27/2019 N2N/CCD Import Red Cell 46.7 36-47 Distribution Width RDW RBC Auto-Rto 10/27/2019 N2N/CCD Import RDW Coefficient 13.7 11.7- 14.4 of Variation Neutrophils/leuk 10/27/2019 N2N/CCD Import Neutrophils (%) 66.2 40.4- 72.8 NFr Bld Auto (Auto) Lymphocytes/leuk 10/27/2019 N2N/CCD Import Lymphocytes (%) 20.4 20.0- 42.0 NFr Bld Auto (Auto) Monocytes/leuk 10/27/2019 N2N/CCD Import Monocytes (%) 8.0 4.3-13.2 NFr Bld Auto (Auto) Eosinophil/leuk 10/27/2019 N2N/CCD Import Eosinophils (%) 3.5 0.0-6.6 NFr Bld Auto (Auto) Imm Granulocytes 10/27/2019 N2N/CCD Import Immature 0.15 # Bld Auto Granulocyte # (Auto) Basophils # Bld 10/27/2019 N2N/CCD Import Basophils # 0.11 High 0.0-0.1 Auto (Auto) Eosinophil # Bld 10/27/2019 N2N/CCD Import Eosinophils # 0.48 0.0-0.5 Auto (Auto) Monocytes # Bld 10/27/2019 N2N/CCD Import Monocytes # 1.09 High 0.3-0.9 Auto (Auto) Basophils/leuk 10/27/2019 N2N/CCD Import Basophils (%) 0.8 0.0-1.1 NFr Bld Auto (Auto) Imm 10/27/2019 N2N/CCD Import Immature 1.1 0.0-5.0 Granulocytes/pau Granulocyte % k NFr Bld Auto (Auto) nRBC/100 WBC Bld 10/27/2019 N2N/CCD Import Nucleated Red 0.0 < 10/ 100 WBC Auto-Rto Blood Cells % (auto) Lymphocytes # 10/27/2019 N2N/CCD Import Lymphocytes # 2.77 1.0-4.0 Bld Auto (Auto) Neutrophils # 10/27/2019 N2N/CCD Import Neutrophils # 8.96 High 1.8-7.0 Bld Auto (Auto) Laboratory test 10/26/2019 [facility] Phosphorous 3.0 Normal 2.5-4.[address] mg/[place] [address] [phone] Un[place]inc 10/26/2019 N2N/CCD Import Miscellaneous 364 Test Comment Miscellaneous Test Comment 186.7 [place] 10/26/2019 N2N/CCD Import Oxygen Saturation 85 Low 93-98 (Pulse Oximetry) Nocturnal Oximetry 10/26/2019 [facility] Low Oximetry 85 % Low 93-98 [address] [place], [place] [id number] [phone] Fio2 21 Normal 21-100 Heart Rate 67 BPM Duration Of Study 364 MINUTES Total Time Below 88% 186.7 MINUTES Alp SerPl-cCnc 10/26/2019 N2N/CCD Import Alkaline Phosphatase 161 45- 117 Alt SerPl-cCnc 10/26/2019 N2N/CCD Import Alanine 33 12-78 Aminotransferase (Alt/SGPT) Ast SerPl-cCnc 10/26/2019 N2N/CCD Import Aspartate Amino Transf 27 15- 37 (Ast/Sgot) Bilirub 10/26/2019 N2N/CCD Import Total Bilirubin 0.4 0.2-1.0 SerPl-mCnc Phosphate 10/26/2019 N2N/CCD Import Phosphorus Level 3.0 2.5-4.0 SerPl-mCnc Continuous 10/26/2019 [facility] Oximetry 93 % Normal 93-[address] [place] [address] [phone] Fio2 21 Normal 21-100 Heart Rate 72 BPM Patient Status AMBULATING SaO2 % BldA 10/26/2019 N2N/CCD Import Oxygen Saturation 93 93-98 PulseOx (Pulse Oximetry) Heart rate 10/26/2019 N2N/CCD Import Blood Gas Patient 72 PulseOx Heart Rate [place] 10/26/2019 N2N/CCD Import Blood Gas Patient Ambulating Status Albumin/Glob 10/26/2019 N2N/CCD Import Albumin/Globulin 0.6 SerPl Ratio Globulin Ser 10/26/2019 N2N/CCD Import Globulin 4.1 1.9-4.3 Calc-mCnc Albumin 10/26/2019 N2N/CCD Import Albumin 2.5 Low 3.4-5.0 SerPl-mCnc Continuous 10/26/2019 [facility] Oximetry 92 % Low 93-[address] [place], [place] [id number] [phone] Fio2 21 Normal 21-100 Heart Rate 62 BPM Patient Status RESTING CBC W/Automated 10/26/2019 [facility] White Blood 13.7 K/uL High 3.1-10.[address] Count [place], [place] [id number] [phone] Red Blood Count 4.00 M/uL Normal 3.90-5.40 Hemoglobin 11.6 gm/dL Normal 11.6-15.8 Hematocrit 37.4 % Normal 36.0-46.1 Mean Cell Volume 93.5 fl Normal 80.9-99.0 Mean Corpuscular HGB 29.0 pg Normal 25.9-32.7 Mean Corpuscular HGB Conc 31.0 g/dL Normal 30.8-34.3 Platelet Count 338 K/uL Normal 155-360 Red Cell Distri Width SD 47.9 fl High 36-47 Red Cell Distri Width %CV 13.8 % Normal 11.7-14.4 Mean Platelet Volume 10.3 fl Normal 8.9-12.4 Neut% 71.0 % Normal 40.4-72.8 Lymph % 15.6 % Low 20.0-42.0 [place] % 7.1 % Normal 4.3-13.2 Eo% 5.1 % Normal 0.0-6.6 Bas% 0.6 % Normal 0.0-1.1 Immature Grans 0.6 % Normal 0.0-5.0 NRBC % 0.0 /100WBC < 10/ 100 WBC Neut# 9.71 K/uL High 1.8-7.0 Lymph # 2.13 K/uL Normal 1.0-4.0 [place] # 0.97 K/uL High 0.3-0.9 Eos # 0.69 K/uL High 0.0-0.5 Baso # 0.08 K/uL Normal 0.0-0.1 Immature Grans Absolute 0.08 K/uL NRBC # 0.00 K/uL Prot SerPl-mCnc 10/26/2019 N2N/CCD Import Total Protein 6.6 6.4-8.2 CBC 10/25/2019 [facility] White Blood 17.2 K/uL High 3.1-10.[address] [place] [address] [phone] Red Blood Count 3.84 M/uL Low 3.90-5.40 Hemoglobin 11.2 gm/dL Low 11.6-15.8 Hematocrit 35.4 % Low 36.0-46.1 Mean Cell Volume 92.2 fl Normal 80.9-99.0 Mean Corpuscular HGB 29.2 pg Normal 25.9-32.7 Mean Corpuscular HGB Conc 31.6 g/dL Normal 30.8-34.3 Platelet Count 279 K/uL Normal 155-360 Red Cell Distri Width SD 46.6 fl Normal 36-47 Red Cell Distri Width %CV 13.7 % Normal 11.7-14.4 Mean Platelet Volume 10.5 fl Normal 8.9-12.4 NRBC % 0.0 /100WBC < 10/ 100 WBC NT-proBNP 10/25/2019 N2N/CCD Import Pro-B-Type 1051.0 SerPl-mCnc Natriuretic Peptide Continuous 10/25/2019 [facility] Oximetry 93 % Normal 93-98 Oximetry [address] [place] [address] [phone] Fio2 21 Normal 21-100 Heart Rate 64 BPM Patient Status RESTING Respiratory Rate 14 Aot Request 10/25/2019 [facility] Aot Request Already done [address] [place] [address] [phone] Tests to be added: bnp Miscellaneous studies 10/25/2019 N2N/CCD Import N/A Already done Aot Request 10/25/2019 [facility] Aot Request Test(s) added 3 [address] [place] [address] [phone] Tests to be added: crp magnesium ph <SEE NOTE> 4 Magnesium 10/25/2019 N2N/CCD Import Magnesium Level 2.2 1.6-2.6 SerPl-mCnc Neuts Band/leuk 10/24/2019 N2N/CCD Import Band Neutrophils % 2 0-8 NFr Bld Manual Monocytes/leuk 10/24/2019 N2N/CCD Import Monocytes % 2 0-10 NFr Bld Manual Neuts Seg/leuk 10/24/2019 N2N/CCD Import Neutrophils % 88 High 33-73 NFr Bld Manual Platelet Bld Ql 10/24/2019 N2N/CCD Import Platelet Estimate Normal Smear RBC morph Bld 10/24/2019 N2N/CCD Import Normal RBC Normal Morphology Variant 10/24/2019 N2N/CCD Import Atypical 2 0-7 Lymphs/leuk NFr Lymphocytes % Bld Manual Total Cells 10/24/2019 N2N/CCD Import Differential Total 100 Counted Bld Cells Counted Lymphocytes/leuk 10/24/2019 N2N/CCD Import Lymphocytes % 6 Low 20-42 NFr Bld Manual Lab Results 10/23/2019 N2N/CCD Import Urine RBC 6-10 0-2 Nitrite Ur Ql 10/23/2019 N2N/CCD Import Urine Nitrite Negative Negative Strip.auto Inr PPP 10/23/2019 N2N/CCD Import Inr International 1.3 High 0.9-1.1 Normalized Ratio Bacteria Bld 10/23/2019 N2N/CCD Import Anaerobic Blood No Growth Anaerobe Cult Culture Epi Cells UrnS 10/23/2019 N2N/CCD Import Urine Epithelial Many None Seen Ql Micro Cells CBC 10/23/2019 [facility] White Blood Count 18.3 K/uL High 3.1-10.7 [address] [place] [address] [phone] Red Blood Count 4.18 M/uL Normal 3.90-5.40 Hemoglobin 12.2 gm/dL Normal 11.6-15.8 Hematocrit 37.6 % Normal 36.0-46.1 Mean Cell Volume 90.0 fl Normal 80.9-99.0 Mean Corpuscular HGB 29.2 pg Normal 25.9-32.7 Mean Corpuscular HGB Conc 32.4 g/dL Normal 30.8-34.3 Platelet Count 294 K/uL Normal 155-360 Red Cell Distri Width SD 44.0 fl Normal 36-47 Red Cell Distri Width %CV 13.3 % Normal 11.7-14.4 Mean Platelet Volume 10.5 fl Normal 8.9-12.4 NRBC % 0.0 /100WBC < 10/ 100 WBC Laboratory comment 10/23/2019 N2N/CCD Import Urine Culture Culture To Report Reflexed Follow Comprehensive 10/23/2019 [facility] Glucose 138 mg/dL High 74-106 Metabolic Panel [address] [place] [address] [phone] BUN 13 mg/dL Normal 7-18 Creatinine 1.4 mg/dL High 0.6-1.3 Glom Filtration Rate, Estimate 40 mL/min >60 If 49 mL/min >60 5 BUN/Creat 9.2 ratio Sodium 135 mmol/L Low 136-145 Potassium 3.1 mmol/L Low 3.5-5.1 Chloride 104 mmol/L Normal 98-107 Carbon Dioxide 25 mmol/L Normal 21-32 Anion Gap 6 mEq/L Low 8-16 Calcium 8.2 mg/dL Low 8.5-10.1 Total Protein 6.4 g/dL Normal 6.4-8.2 Albumin 3.0 g/dL Low 3.4-5.0 Globulin 3.4 g/dL Normal 1.9-4.3 Alb/Glob 0.9 ratio Bilirubin,Total 0.7 mg/dL Normal 0.2-1.0 Sgot/Ast 14 U/L Low 15-37 6 SGPT/Alt 22 U/L Normal 12-78 Alkaline Phosphatase 84 U/L Normal 45-117 Blood Culture 10/23/2019 [facility] Blood Culture NO GROWTH: FINAL [address] Aerobic <SEE NOTE> [place] [address] [phone] Blood Culture Anaerobic NO GROWTH: FINAL <SEE NOTE> 8 Laboratory 10/23/2019 [facility] Bilirubin,Direct 0.2 mg/dL Normal 0.0-0.2 test finding [address] [place] [address] [phone] Bilirub 10/23/2019 N2N/CCD Import Direct Bilirubin 0.2 0.0-0.2 Direct SerPl-mCnc Anaerobic 10/23/2019 [facility] Gram Stain; Test not 9 Culture W/ GR [address] Anaerobic [place] [address] <SEE [phone] NOTE> Anaerobic Culture NO GROWTH Color Ur Auto 10/23/2019 N2N/CCD Import Urine Color Light-Yellow Yellow Appearance Ur 10/23/2019 N2N/CCD Import Urine Clarity Clear Clear Blood Culture 10/23/2019 [facility] Blood Culture NO GROWTH: FINAL [address] Aerobic <SEE NOTE> [place] [address] [phone] Blood Culture Anaerobic NO GROWTH: FINAL <SEE NOTE> 11 Glucose Ur Ql 10/23/2019 N2N/CCD Import Urine Glucose Negative Negative Strip.auto (Ua) Fluid Culture W/ 10/23/2019 [facility] Gram Stain MANY GRAM [address]ain [address] [place] <[place] [address] NOTE> [phone] Gram Stain MODERATE WHITE B <SEE NOTE> 13 Fluid Culture STREP. AGALACTIA <SEE NOTE> Abnormal 14 Quantity MANY Recommended Therapy: PENICILLIN OR AM <SEE NOTE> 15 Ketones Ur Ql 10/23/2019 N2N/CCD Import Urine Ketones Negative Negative Strip.auto Urobilinogen Ur 10/23/2019 N2N/CCD Import Urine < 2.0 < 2.0 Ql Strip.auto Urobilinogen Prothrombin time 10/23/2019 N2N/CCD Import Prothrombin 15.8 High 12.0- 14.4 Time Leukocyte 10/23/2019 N2N/CCD Import Urine Large High Negative esterase Ur Ql Leukocyte Strip.auto Esterase Bacteria Bld 10/23/2019 N2N/CCD Import Aerobic Blood No Growth Aerobe Cult Culture WBC #/area UrnS 10/23/2019 N2N/CCD Import Urine WBC 31-50 0-5 HPF aPTT PPP 10/23/2019 N2N/CCD Import Activated 33.4 23.4-35.0 Partial Thromboplast Time Bacteria Ur Ql 10/23/2019 N2N/CCD Import Urine Bacteria Few None Seen Auto Bacteria Ur Cult 10/23/2019 N2N/CCD Import Urine Culture No Growth: Final Report Bilirub Ur Ql 10/23/2019 N2N/CCD Import Urine Negative Negative Strip.auto Bilirubin Sp Gr Ur 10/23/2019 N2N/CCD Import Urine Specific 1.009 Low 1.010-1.03 Refractometry [place] 0 [id number] 10/23/2019 [facility] Penicillin G <=0.12 Susceptible [address] [place] [address] [phone] Tetracycline >=16 Resistant Ampicillin <=0.25 Susceptible Clindamycin 4 Resistant Moxifloxacin <=0.25 Susceptible Levofloxacin 0.5 Susceptible Vancomycin <=0.5 Susceptible Hgb Ur Ql 10/23/2019 N2N/CCD Import Urine Blood Moderate High Negative Strip.auto pH Ur Strip.auto 10/23/2019 N2N/CCD Import Urine pH 6.5 6.5-7.5 Bacteria XXX 10/23/2019 N2N/CCD Import Sterile Body Fluid Strep. BFld Cult Culture Agalactiae (Beta GRP B) Prot Ur Ql 10/23/2019 N2N/CCD Import Urine Protein Negative Negative Strip.auto Lipase 10/22/2019 N2N/CCD Import Lipase 113 56-289 SerPl-cCnc Troponin I 10/22/2019 N2N/CCD Import Troponin I < 0.015 SerPl-mCnc [place] 10/22/2019 N2N/CCD Import [place] Level 0.66 0.60-1.20 SerPl-sCnc Color Ur Auto 10/22/2019 N2N/CCD Import Urine Color Colorless Yellow Appearance Ur 10/22/2019 N2N/CCD Import Urine Clarity Clear Clear Glucose Ur Ql 10/22/2019 N2N/CCD Import Urine Glucose (Ua) Negative Negative Strip.auto Bilirub Ur Ql 10/22/2019 N2N/CCD Import Urine Bilirubin Negative Negative Strip.auto Ketones Ur Ql 10/22/2019 N2N/CCD Import Urine Ketones Negative Negative Strip.auto Sp Gr Ur 10/22/2019 N2N/CCD Import Urine Specific 1.009 Low 1.010-1.03 Refractometry [place] 0 Hgb Ur Ql 10/22/2019 N2N/CCD Import Urine Blood Trace Negative Strip.auto pH Ur Strip.auto 10/22/2019 N2N/CCD Import Urine pH 7.0 6.5-7.5 Prot Ur Ql 10/22/2019 N2N/CCD Import Urine Protein Negative Negative Strip.auto Urobilinogen Ur 10/22/2019 N2N/CCD Import Urine Urobilinogen < 2.0 < 2.0 Ql Strip.auto Nitrite Ur Ql 10/22/2019 N2N/CCD Import Urine Nitrite Negative Negative Strip.auto Leukocyte 10/22/2019 N2N/CCD Import Urine Leukocyte Small High Negative esterase Ur Ql Esterase Strip.auto Lab Results 10/22/2019 N2N/CCD Import Urine RBC 3-5 0-2 WBC #/area UrnS 10/22/2019 N2N/CCD Import Urine WBC 3-5 0-5 HPF Squamous Ur Ql 10/22/2019 N2N/CCD Import Urine Epithelial Moderate None Seen Auto Cells MCH RBC Qn Auto 10/21/2019 N2N/CCD Import Mean Corpuscular 29.2 25.9- 32.7 Hemoglobin MCHC RBC 10/21/2019 N2N/CCD Import Mean Corpuscular 32.5 30.8-34.3 Auto-mCnc Hemoglobin Concent Platelet # Bld 10/21/2019 N2N/CCD Import Platelet Count 399 High 155-360 Auto RDW RBC Auto 10/21/2019 N2N/CCD Import Red Cell 42.9 36-47 Distribution Width RDW RBC Auto-Rto 10/21/2019 N2N/CCD Import RDW Coefficient of 13.1 11.7- 14.4 Variation PMV Bld Auto 10/21/2019 N2N/CCD Import Mean Platelet 9.6 8.9-12.4 Volume Neutrophils/leuk 10/21/2019 N2N/CCD Import Neutrophils (%) 55.0 40.4- 72.8 NFr Bld Auto (Auto) Lymphocytes/leuk 10/21/2019 N2N/CCD Import Lymphocytes (%) 31.0 20.0- 42.0 NFr Bld Auto (Auto) Monocytes/leuk 10/21/2019 N2N/CCD Import Monocytes (%) 8.4 4.3-13.2 NFr Bld Auto (Auto) Eosinophil/leuk 10/21/2019 N2N/CCD Import Eosinophils (%) 4.0 0.0-6.6 NFr Bld Auto (Auto) Basophils/leuk 10/21/2019 N2N/CCD Import Basophils (%) 1.2 High 0.0-1.1 NFr Bld Auto (Auto) Imm 10/21/2019 N2N/CCD Import Immature 0.4 0.0-5.0 Granulocytes/pau Granulocyte % k NFr Bld Auto (Auto) nRBC/100 WBC Bld 10/21/2019 N2N/CCD Import Nucleated Red Blood 0.0 < 10 / 100 Auto-Rto Cells % (auto) WBC Neutrophils # 10/21/2019 N2N/CCD Import Neutrophils # 6.40 1.8-7.0 Bld Auto (Auto) Lymphocytes # 10/21/2019 N2N/CCD Import Lymphocytes # 3.62 1.0-4.0 Bld Auto (Auto) Monocytes # Bld 10/21/2019 N2N/CCD Import Monocytes # (Auto) 0.98 High 0.3-0.9 Auto Eosinophil # Bld 10/21/2019 N2N/CCD Import Eosinophils # 0.47 0.0-0.5 Auto (Auto) Basophils # Bld 10/21/2019 N2N/CCD Import Basophils # (Auto) 0.14 High 0.0-0.1 Auto Imm Granulocytes 10/21/2019 N2N/CCD Import Immature 0.05 # Bld Auto Granulocyte # (Auto) nRBC # Bld Auto 10/21/2019 N2N/CCD Import Nucleated RBC 0.00 Absolute Count (auto) Glucose 10/21/2019 N2N/CCD Import Glucose Screen 121 High 74-106 SerPl-mCnc BUN SerPl-mCnc 10/21/2019 N2N/CCD Import Blood Urea Nitrogen 18 7-18 Creat SerPl-mCnc 10/21/2019 N2N/CCD Import Creatinine 1.4 High 0.6-1.3 GFR/Bsa pred.non 10/21/2019 N2N/CCD Import Estimated GFR 40 >60 black SerPl (Non- [facility] [place] GFR/Bsa 10/21/2019 N2N/CCD Import Estimated GFR 49 >60 pred.black SerPl () MDRD-ArVRat BUN/Creat SerPl 10/21/2019 N2N/CCD Import BUN/Creatinine 12.8 Ratio Sodium 10/21/2019 N2N/CCD Import Sodium Level 138 136-145 SerPl-sCnc Potassium 10/21/2019 N2N/CCD Import Potassium Level 3.5 3.5-5.1 SerPl-sCnc Chloride 10/21/2019 N2N/CCD Import Chloride Level 106 98-107 SerPl-sCnc Co2 SerPl-sCnc 10/21/2019 N2N/CCD Import Carbon Dioxide 29 21-32 Level Anion Gap 10/21/2019 N2N/CCD Import Anion Gap 3 Low 8-16 SerPl-sCnc Calcium 10/21/2019 N2N/CCD Import Calcium Level 8.9 8.5-10.1 SerPl-nc Prot SerPl-mCnc 10/21/2019 N2N/CCD Import Total Protein 7.2 6.4-8.2 Albumin 10/21/2019 N2N/CCD Import Albumin 3.8 3.4-5.0 SerP-[facility] Globulin Ser 10/21/2019 N2N/CCD Import Globulin 3.4 1.9-4.3 Calc-nc Albumin/Glob 10/21/2019 N2N/CCD Import Albumin/Globulin 1.1 SerPl Ratio Bilirub 10/21/2019 N2N/CCD Import Total Bilirubin 0.2 0.2-1.0 SerP-[facility] Ast SerPl-cCnc 10/21/2019 N2N/CCD Import Aspartate Amino 9 Low 15-37 Transf (Ast/Sgot) Alt [facility] 10/21/2019 N2N/CCD Import Alanine 22 12-78 Aminotransferase (Alt/SGPT) Alp SerPl-cCnc 10/21/2019 N2N/CCD Import Alkaline 94 45-117 Phosphatase Lipase 10/21/2019 N2N/CCD Import Lipase 233 56-289 SerPl-[facility] Troponin I 10/21/2019 N2N/CCD Import Troponin I < 0.015 [facility]-nc WBC # XXX Auto 10/21/2019 N2N/CCD Import White Blood Count 11.7 High 3.1- 10.7 RBC # Bld Auto 10/21/2019 N2N/CCD Import Red Blood Count 4.52 3.90-5.40 Hgb Bld-nc 10/21/2019 N2N/CCD Import Hemoglobin 13.2 11.6-15.8 Hct VFr Bld Auto 10/21/2019 N2N/CCD Import Hematocrit 40.6 36.0-46.1 MCV RBC Auto 10/21/2019 N2N/CCD Import Mean Corpuscular 89.8 80.9-99.0 Volume Phosphate 10/12/2019 N2N/CCD Import [facility] 3[facility]6 [facility] N2N/CCD Import Magnesium Level 2.7 High 1.6-2.6 SerPl-mCnc 1 CHOLECYSTITIS 2 Tests: bnp Instructions: 3 Tests: crp magnesium phosphorous Instructions: 4 crp magnesium phosphorous 5 Note: Persistent reduction for 3 months or more in an eGFR <60 mL/min/1.73 m2 defines CKD. Patients with eGFR values >/=60 mL/min/1.73 m2 may also have CKD if evidence of persistent proteinuria is present. The original MDRD equation for estimated GFR is not valid for patients less than 18 years of age. Additional information may be found at www.kdoqi.org. 6 Values below the stated reference ranges of AST and ALT can be seen in normal populations. Clinical correlation is suggested. 7 NO GROWTH: FINAL REPORT 8 NO GROWTH: FINAL REPORT 9 Test not performed 10 NO GROWTH: FINAL REPORT 11 NO GROWTH: FINAL REPORT 12 MANY GRAM POSITIVE COCCI 13 MODERATE WHITE BLOOD CELLS 14 STREP. AGALACTIAE (BETA GRP B) 15 PENICILLIN OR AMPICILLIN. 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, bilateral legs L84 Corns and callosities L60.3 Nail dystrophy M20.5x1 Other deformities of toe(s) (acquired), right foot M20.5x2 Other deformities of toe(s) (acquired), left foot M20.41 Other hammer toe(s) (acquired), right foot Office Visit 07/16/2019 11:00a Cardiology Office Marium Foley R55 Syncope and B., PA collapse E78.5 Hyperlipidemia, unspecified R42 Dizziness and giddiness I10 Essential (primary) hypertension Assessments Date Code Description Provider 12/14/2019 S92.522D Displaced fracture of middle Eddie Malik, DPM phalanx of left lesser toe(s), subsequent encounter for fracture with routine healing 12/14/2019 S92.522A Displaced fracture of middle Eddie Malik DPMiguel Ángel phalanx of left lesser toe(s), initial encounter for closed fracture 12/09/2019 K81.0 Acute cholecystitis Gisselle White, [facility] 11/26/2019 S92.522A Displaced fracture of middle Eddie Malik DPMiguel Ángel phalanx of left lesser toe(s), initial encounter for closed fracture 11/25/2019 M79.675 Pain in left toe(s) Eddie Malik DPMiguel Ángel 11/25/2019 I70.203 Unspecified atherosclerosis of Eddie Malik DPMiguel Ángel tolowa dee-ni' arteries of extremities, bilateral legs 11/25/2019 L84 Corns and callosities Eddie Malik DPMiguel Ángel 11/25/2019 L60.3 Nail dystrophy Eddie Malik DPMiguel Ángel 11/25/2019 M20.5x1 Other deformities of toe(s) King Eddie DPM (acquired), right foot 11/25/2019 M20.5x2 Other deformities of toe(s) Eddie Malik DPM (acquired), left foot 11/25/2019 M20.41 Other hammer toe(s) (acquired), Eddie Malik DPM right foot 11/20/2019 R10.10 Upper abdominal pain, unspecified Salanger, Kaitlin, [employer] 11/20/2019 R93.5 Abnormal findings on diagnostic Salanger, Kaitlin, [employer] imaging of other abdominal regions, including retroperitoneum 11/20/2019 Z98.890 Other specified postprocedural Salanger, Kaitlin, [employer] states 11/20/2019 K83.9 Disease of biliary tract, Salanger, Kaitlin, [employer] TECH[employer]IC[employer] unspecified 11/19/2019 R10.10 Upper abdominal pain, unspecified Salanger, Kaitlin, [employer] TECHNIC[employer] 11/19/2019 R93.5 Abnormal findings on diagnostic Salanger, Kaitlin, [employer] TECHNIC[employer] imaging of other abdominal regions, including retroperitoneum 11/19/2019 Z98.890 Other specified postprocedural Salanger, Kaitlin, CHIE[employer] TECHNICIAN [employer] states 11/19/2019 K83.9 Disease of biliary tract, Salanger, Kaitlin, [employer] TE[employer]IC[employer] unspecified 11/18/2019 R10.10 Upper abdominal pain, unspecified Maria Chinchilla M.D. 11/18/2019 R93.5 Abnormal findings on diagnostic Maria Chinchilla M.D. imaging of other abdominal regions, including retroperitoneum 11/18/2019 R11.0 Nausea Maria Chinchilla M.D. 11/18/2019 Z98.890 Other specified postprocedural Maria Chinchilla M.D. states 11/17/2019 R10.10 Upper abdominal pain, unspecified Hiram Jessica M.D. 11/17/2019 R10.9 Unspecified abdominal pain Mahesh Bauer M.D. 11/17/2019 R93.5 Abnormal findings on diagnostic Hiram Jessica M.D. imaging of other abdominal regions, including retroperitoneum 11/17/2019 Z90.49 Acquired absence of other specified Mahesh Bauer, parts of digestive tract Salima 11/17/2019 R11.0 Nausea Hiram Jessica M.D. 11/17/2019 Z98.890 Other specified postprocedural Hiram Jessica M.D. states 11/04/2019 K81.0 Acute cholecystitis Gisselle White, [facility] 10/27/2019 R10.11 Right upper quadrant pain Maria Chinchilla M.D. 10/27/2019 K80.00 Calculus of gallbladder with acute Maria Chinchilla M.D. cholecystitis without obstruction 10/27/2019 A41.9 Sepsis, unspecified organism Maria Chinchilla M.D. 10/27/2019 N39.0 Urinary tract infection, site not Maria Chinchilla M.D. specified 10/26/2019 R10.11 Right upper quadrant pain Maria Chinchilla M.D. 10/26/2019 K80.00 Calculus of gallbladder with acute Maria Chinchilla M.D. cholecystitis without obstruction 10/26/2019 A41.9 Sepsis, unspecified organism Maria Chinchilla M.D. 10/26/2019 N39.0 Urinary tract infection, site not Maria Chinchilla M.D. specified 10/25/2019 R10.11 Right upper quadrant pain Maria Chinchilla M.D. 10/25/2019 K80.00 Calculus of gallbladder with acute Maria Chinchilla M.Derrick. cholecystitis without obstruction 10/25/2019 A41.9 Sepsis, unspecified organism Maria Chinchilla M.D. 10/25/2019 N39.0 Urinary tract infection, site not Maria Chinchilla M.Derrick. specified 10/24/2019 R10.11 Right upper quadrant pain Opal Grimm, M.D. 10/24/2019 K80.00 Calculus of gallbladder with acute Sky Grimmnasra M.D. cholecystitis without obstruction 10/24/2019 A41.9 Sepsis, unspecified organism Opal Grimm, M.D. 10/24/2019 N39.0 Urinary tract infection, site not Opal Grimm, M.D. specified 10/23/2019 K80.00 Calculus of gallbladder with acute Mahesh Bauer, cholecystitis without obstruction M.D. 10/23/2019 R10.11 Right upper quadrant pain Opal Grimm, M.D. 10/23/2019 K56.50 Intestinal adhesions [bands], Mahesh Bauer, unspecified as to partial versus M.D. complete obstruction 10/23/2019 K80.00 Calculus of gallbladder with acute Opal Grimm, M.D. cholecystitis without obstruction 10/23/2019 R50.9 Fever, unspecified GrimmOpal pickard, M.D. 10/23/2019 D72.829 Elevated white blood cell count, Opal Grimm, M.D. unspecified 10/22/2019 K80.00 Calculus of gallbladder with acute Genaro Bauerer H., cholecystitis without obstruction M.D. 10/22/2019 K56.50 Intestinal adhesions [bands], Arturo Baueropher HTabitha, unspecified as to partial versus M.D. complete obstruction 07/16/2019 R55 Syncope and collapse Marium Foley PA 07/16/2019 E78.5 Hyperlipidemia, unspecified Marium Foley PA 07/16/2019 R42 Dizziness and giddiness Marium Foley PA 07/16/2019 I10 Essential (primary) hypertension Marium Foley PA Plan of Treatment Future Appointment(s):02/01/2020 1:40 pm - Eddie Malik DPM at Podiatry [facility]6012/14/2019 - Eddie Malik DPMS92.522D Displaced fracture of middle phalanx of left lesser toe(s), subsequent encounter for fracture with routine healingComments:The patient can continue to use her new sneakers. No further treatment required.Follow up:Follow-up when necessary toe [id number] Displaced fracture of middle phalanx of left lesser toe(s), initial encounter for closed fractureComments:The patient can continue to use her new sneakers. No further treatment required.Follow up:Follow-up when necessary toe fracture Functional Status Functional Condition Comment Date Status Independent with all ADL's Active Mental Status Description No Information Available Referrals Description No Information Available
--- OUTSIDE RECORDS SUMMARY | 2019-12-31 13:48 | XMS REPORT | Continuity of Care Document ---
:1955 External Reference #:[id number] Author Name Mahesh Bauer M.D. Address [address] [place] [id number] Care Team Providers Name Role Phone Shruthi Zimmerman MD - Family Care Team Information Analytical Sciences Director Medicine Kirit Mays M.D. - Orthopaedic Care Team Information Analytical Sciences Director Surgery Problems Active Problems Provider Date Mixed hyperlipidemia [...] the E cig Unknown Smoking Status Reviewed: 11/01/19 Quit but uses the E cig ETOH Use Denies alcohol use Recreational Drug Use Denies Drug Use Allergies, Adverse Reactions, Alerts Active Allergies Reaction Severity Comments Date Epinephrine sob, feeling of impending doom 12/29/2013 Medications Active Medications SIG Qnty Indications Ordering Date Provider Sucralfate 4 Times/Day Unknown 1gm Tablets Rosuvastatin Calcium AT Bedtime Unknown 20mg Tablets [place] Carbonate 2 Times A Day Unknown 300mg Capsules Levothyroxine Sodium Once Daily Unknown 150mcg Tablets Potassium Chloride Simi ER 3 by mouth every Unknown 10Meq day Tablets ER Primidone 1 by mouth every Unknown 50mg Tablets day Aspir-Low daily Unknown 81mg Tablets DR Clonazepam 1 in am , 1 in Unknown 1mg Tablets pm Cymbalta 2 po qd Unknown 30mg [...] Available Vital Signs Date Vital Result Comment 11/17/2019 9:01am BP Systolic Sitting Left Arm 132 mmHg BP Diastolic Sitting Left Arm 80 mmHg Body Temperature 98.6 F Heart Rate 65 /min Weight 196.00 lb Per PT O2 % BldC Oximetry 95 % ra 11/14/2019 9:24am Weight 203.00 lb Results Test Acquired Facility Test Result H/L Range Note Date Imm 11/14/2019 N2N/CCD Import Immature 0.4 0.0-5.0 Granulocytes/pau Granulocyte % k NFr Bld Auto (Auto) nRBC/100 WBC Bld 11/14/2019 N2N/CCD Import Nucleated Red 0.0 < 10/ 100 Auto-Rto Blood Cells % WBC (auto) Neutrophils # 11/14/2019 N2N/CCD Import Neutrophils # 5.26 1.8-7.0 Bld Auto (Auto) Lymphocytes # 11/14/2019 N2N/CCD Import Lymphocytes # 2.53 1.0-4.0 Bld Auto (Auto) Monocytes # Bld 11/14/2019 N2N/CCD Import Monocytes # (Auto) 0.67 0.3- 0.9 Auto Eosinophil # Bld 11/14/2019 N2N/CCD Import Eosinophils # 0.38 0.0-0.5 Auto (Auto) Basophils # Bld 11/14/2019 N2N/CCD Import Basophils # (Auto) 0.11 High 0.0-0.1 Auto Imm Granulocytes 11/14/2019 N2N/CCD Import Immature 0.04 # Bld Auto Granulocyte # (Auto) nRBC # Bld Auto 11/14/2019 N2N/CCD Import Nucleated RBC 0.00 Absolute Count (auto) Glucose 11/14/2019 N2N/CCD Import Glucose Screen 100 74-106 SerPl-mCnc BUN SerPl-mCnc 11/14/2019 N2N/CCD Import Blood Urea 15 7-18 Nitrogen Creat SerPl-mCnc 11/14/2019 N2N/CCD Import Creatinine 1.2 0.6-1.3 GFR/Bsa pred.non 11/14/2019 N2N/CCD Import Estimated GFR 48 >60 black SerPl (Non- MDRD-ArVRat Thai GFR/Bsa 11/14/2019 N2N/CCD Import Estimated GFR 59 >60 pred.black SerPl () MDRD-ArVRat BUN/Creat SerPl 11/14/2019 N2N/CCD Import BUN/Creatinine 12.5 Ratio Sodium 11/14/2019 N2N/CCD Import Sodium Level 137 136-145 SerPl-sCnc Potassium 11/14/2019 N2N/CCD Import Potassium Level 3.1 [...] N2N/CCD Import Troponin I < 0.015 SerPl-mCnc Miscellaneous 11/14/2019 N2N/CCD Import N/A Test(s) studies added Color Ur 11/14/2019 N2N/CCD Import Urine Color Yellow Yellow Appearance Ur 11/14/2019 N2N/CCD Import Urine Clarity Clear Clear Glucose Ur 11/14/2019 N2N/CCD Import Urine Glucose (Ua) Negative Negative Strip.auto-mCnc Bilirub Ur Ql 11/14/2019 N2N/CCD Import Urine Bilirubin Negative Negative Strip.auto Ketones Ur 11/14/2019 N2N/CCD Import Urine Ketones Negative Negative Strip.auto-mCnc Sp Gr Ur 11/14/2019 N2N/CCD Import Urine Specific <= 1.005 Low 1.010- 1.03 Strip.auto [place] 0 Hgb Ur Ql 11/14/2019 N2N/CCD Import Urine Blood Small High Negative Strip.auto pH Ur Strip.auto 11/14/2019 N2N/CCD Import Urine pH 5.5 Low 6.5-7.5 Prot Ur 11/14/2019 N2N/CCD Import Urine Protein Negative Negative Strip.auto-mCnc Urobilinogen Ur 11/14/2019 N2N/CCD Import Urine Urobilinogen 0.2 0.2- 1.0 Strip-aCnc Nitrite Ur Ql 11/14/2019 N2N/CCD Import Urine Nitrite Negative Negative Strip.auto Leukocyte 11/14/2019 N2N/CCD Import Urine Leukocyte Trace High Negative esterase Ur Ql Esterase Strip.auto RBC #/area UrnS 11/14/2019 N2N/CCD Import Urine RBC 0-2 0-2 HPF WBC #/area UrnS 11/14/2019 N2N/CCD Import Urine WBC 6-10 0-7 HPF Epi Cells UrnS 11/14/2019 N2N/CCD Import Urine Epithelial Few None Seen Ql Micro Cells Basophils/leuk 11/14/2019 N2N/CCD Import Basophils (%) 1.2 [...] RDW Coefficient of 13.4 11.7- 14.4 Variation RDW RBC Auto 11/14/2019 N2N/CCD Import Red Cell 43.8 36-47 Distribution Width Bacteria UrnS Ql 11/14/2019 N2N/CCD Import Urine Bacteria Few None Seen Micro WBC # XXX Auto 11/14/2019 N2N/CCD Import White Blood Count 9.0 3.1-10.7 RBC # Bld Auto 11/14/2019 N2N/CCD Import Red Blood Count 4.34 3.90-5.40 Hgb Bld-mCnc 11/14/2019 N2N/CCD Import Hemoglobin 12.5 11.6-15.8 Platelet # Bld 11/14/2019 N2N/CCD Import Platelet Count 394 High 155-360 Auto MCHC RBC 11/14/2019 N2N/CCD Import Mean Corpuscular 32.4 30.8-34.3 Auto-mCnc Hemoglobin Concent Hct VFr Bld Auto 11/14/2019 N2N/CCD Import Hematocrit 38.6 36.0-46.1 MCH RBC Qn Auto 11/14/2019 N2N/CCD Import Mean Corpuscular 28.8 25.9- 32.7 Hemoglobin MCV RBC Auto 11/14/2019 N2N/CCD Import Mean Corpuscular 88.9 80.9-99.0 Volume Basophils # Bld 10/27/2019 N2N/CCD Import Basophils # (Auto) 0.11 High 0.0-0.1 Auto Imm Granulocytes 10/27/2019 N2N/CCD Import Immature 0.15 # Bld Auto Granulocyte # (Auto) nRBC # Bld Auto 10/27/2019 N2N/CCD Import Nucleated RBC 0.00 Absolute Count (auto) Glucose 10/27/2019 N2N/CCD Import Glucose Screen 80 74-106 SerPl-mCnc BUN SerPl-mCnc 10/27/2019 N2N/CCD Import Blood Urea 11 7-18 Nitrogen Creat SerPl-mCnc 10/27/2019 N2N/CCD Import Creatinine 1.1 0.6-1.3 GFR/Bsa pred.non 10/27/2019 N2N/CCD Import Estimated GFR 53 >60 black SerPl (Non- MDRD-ArVRat Thai GFR/Bsa 10/27/2019 N2N/CCD Import Estimated GFR >60 [...] K/uL High 3.1- 10.7 1 Diff [address] [place] [address] [phone] Red Blood Count 4.08 M/uL Normal 3.90-5.40 [...] 40.4-72.8 Lymph % 20.4 % Normal 20.0-42.0 [place] % 8.0 % Normal 4.3-13.2 Eo% 3.5 % Normal 0.0-6.6 Bas% 0.8 % Normal 0.0-1.1 Immature Grans 1.1 % Normal 0.0-5.0 NRBC % 0.0 /100WBC < 10/ 100 WBC Neut# 8.96 K/uL High 1.8-7.0 Lymph # 2.77 K/uL Normal 1.0-4.0 [place] # 1.09 K/uL High 0.3-0.9 Eos # [...] RBC Auto-Rto 10/27/2019 N2N/CCD Import RDW Coefficient of 13.7 11.7- 14.4 Variation Neutrophils/leuk 10/27/2019 N2N/CCD Import Neutrophils (%) 66.2 40.4- 72.8 NFr Bld Auto (Auto) Lymphocytes/leuk 10/27/2019 N2N/CCD Import Lymphocytes (%) 20.4 20.0- 42.0 NFr Bld Auto (Auto) Eosinophil # Bld 10/27/2019 N2N/CCD Import Eosinophils # 0.48 0.0-0.5 Auto (Auto) Monocytes # Bld 10/27/2019 N2N/CCD Import Monocytes # (Auto) 1.09 High 0.3-0.9 Auto Lymphocytes # Bld 10/27/2019 N2N/CCD Import Lymphocytes # 2.77 1.0-4.0 Auto (Auto) Neutrophils # Bld 10/27/2019 N2N/CCD Import Neutrophils # 8.96 High 1.8- 7.0 Auto (Auto) Monocytes/leuk 10/27/2019 N2N/CCD Import Monocytes (%) 8.0 4.3-13.2 NFr Bld Auto (Auto) Eosinophil/leuk 10/27/2019 N2N/CCD Import Eosinophils (%) 3.5 0.0-6.6 NFr Bld Auto (Auto) nRBC/100 WBC Bld 10/27/2019 N2N/CCD Import Nucleated Red 0.0 < 10/ 100 WBC Auto-Rto Blood Cells % (auto) Basophils/leuk 10/27/2019 N2N/CCD Import Basophils (%) 0.8 0.0-1.1 NFr Bld Auto (Auto) Imm 10/27/2019 N2N/CCD Import Immature 1.1 0.0-5.0 Granulocytes/leuk Granulocyte % NFr Bld Auto (Auto) Unloinc 10/26/2019 N2N/CCD Import Miscellaneous Test 364 Comment Miscellaneous Test Comment 186.7 [place]loinc 10/26/2019 N2N/CCD Import Oxygen Saturation 85 Low 93-98 (Pulse Oximetry) Nocturnal Oximetry 10/26/2019 [facility] Low Oximetry 85 % Low 93-98 [address] [place], [place] [id number] [phone] Fio2 21 Normal 21-100 Heart Rate 67 BPM Duration Of Study 364 MINUTES Total Time Below 88% 186.7 MINUTES Alp SerPl-cCnc 10/26/2019 N2N/CCD Import Alkaline Phosphatase 161 45- 117 Alt SerPl-cCnc 10/26/2019 N2N/CCD Import Alanine 33 12-78 Aminotransferase (Alt/SGPT) Ast SerPl-cCnc 10/26/2019 N2N/CCD Import Aspartate Amino 27 15-37 Transf (Ast/Sgot) Bilirub 10/26/2019 N2N/CCD Import Total Bilirubin 0.4 0.2-1.0 SerPl-mCnc Albumin/Glob 10/26/2019 N2N/CCD Import Albumin/Globulin 0.6 SerPl Ratio Globulin Ser 10/26/2019 N2N/CCD Import Globulin 4.1 1.9-4.3 Calc-mCnc Phosphate 10/26/2019 N2N/CCD Import Phosphorus Level 3.0 2.5-4.0 SerPl-mCnc Laboratory test 10/26/2019 [facility] Phosphorous 3.0 Normal 2.5-4.[address] mg/dL [place], [place] [id number] [phone] Continuous 10/26/2019 [facility] Oximetry 93 % Normal 93-98 Oximetry [address] [place], [place] [id number] [phone] Fio2 21 Normal 21-100 Heart Rate 72 BPM Patient Status AMBULATING Continuous Oximetry 10/26/2019 [facility] Oximetry 92 % Low 93-98 [address] [place], [place] [address] [phone] Fio2 21 Normal 21-100 Heart Rate 62 BPM [facility] Status [facility] 10/26/2019 N2N/CCD Import Blood Gas Patient Ambulating Status SaO2 % BldA 10/26/2019 N2N/CCD Import Oxygen Saturation 93 93-98 PulseOx (Pulse Oximetry) Albumin 10/26/2019 N2N/CCD Import Albumin 2.5 Low 3.4-5.0 SerPl-mCnc Prot SerPl-mCnc 10/26/2019 N2N/CCD Import Total Protein 6.6 6.4-8.2 Heart rate 10/26/2019 N2N/CCD Import Blood Gas Patient 72 PulseOx Heart Rate CBC W/Automated 10/26/2019 [facility] White Blood Count 13.7 K/uL High 3.1-10. Diff [address] [place] [id number] [phone] Red Blood Count 4.00 M/uL Normal 3.90-5.40 [...] 40.4-72.8 Lymph % 15.6 % Low 20.0-42.0 [place] % 7.1 % Normal 4.3-13.2 Eo% 5.1 % Normal 0.0-6.6 Bas% 0.6 % Normal 0.0-1.1 Immature Grans 0.6 % Normal 0.0-5.0 NRBC % 0.0 /100WBC < 10/ 100 WBC Neut# 9.71 K/uL High 1.8-7.0 Lymph # 2.13 K/uL Normal 1.0-4.0 [place] # 0.97 K/uL High 0.3-0.9 Eos # 0.69 K/uL High 0.0-0.5 Baso # 0.08 K/uL Normal 0.0-0.1 Immature Grans Absolute 0.08 K/uL NRBC # 0.00 K/uL CBC 10/25/2019 [facility] White Blood Count 17.2 K/uL High 3.1-10.7 [address] [place] [address] [phone] Red Blood Count 3.84 M/uL Low 3.90-5.40 [...] % 0.0 /100WBC < 10/ 100 WBC Miscellaneous studies 10/25/2019 N2N/CCD Import N/A Already done Aot Request 10/25/2019 [facility] Aot Request Already done 2 [address] [place] [address] [phone] Tests to be added: bnp Aot Request 10/25/2019 [facility] Aot Request Test(s) added 3 [address] [place] [address] [phone] Tests to be added: crp magnesium ph <SEE NOTE> 4 Continuous Oximetry 10/25/2019 [facility] Oximetry 93 % Normal 93-98 [address] [place] [address] [phone] Fio2 21 Normal 21-100 Heart Rate 64 BPM Patient Status RESTING Respiratory Rate 14 Magnesium 10/25/2019 N2N/CCD Import Magnesium Level 2.2 1.6-2.6 SerPl-mCnc NT-proBNP 10/25/2019 N2N/CCD Import Pro-B-Type 1051.0 SerPl-mCnc Natriuretic Peptide Neuts Seg/leuk 10/24/2019 N2N/CCD Import Neutrophils % 88 High 33-73 NFr Bld Manual Total Cells 10/24/2019 N2N/CCD Import Differential 100 Counted Bld Total Cells Counted Lymphocytes/leuk 10/24/2019 N2N/CCD Import Lymphocytes % 6 Low 20-42 NFr Bld Manual Platelet Bld Ql 10/24/2019 N2N/CCD Import Platelet Normal Smear Estimate Monocytes/leuk 10/24/2019 N2N/CCD Import Monocytes % 2 0-10 NFr Bld Manual RBC morph Bld 10/24/2019 N2N/CCD Import Normal RBC Normal Morphology Variant 10/24/2019 N2N/CCD Import Atypical 2 0-7 Lymphs/leuk NFr Lymphocytes % Bld Manual Neuts Band/leuk 10/24/2019 N2N/CCD Import Band Neutrophils 2 0-8 NFr Bld Manual % Bacteria XXX BFld 10/23/2019 N2N/CCD Import Sterile Body Strep. Cult Fluid Culture Agalactiae (Beta GRP B) Prothrombin time 10/23/2019 N2N/CCD Import Prothrombin Time 15.8 High 12.0-14.4 aPTT PPP 10/23/2019 N2N/CCD Import Activated 33.4 23.4-35.0 Partial Thromboplast Time Inr PPP 10/23/2019 N2N/CCD Import Inr 1.3 High 0.9-1.1 International Normalized Ratio Comprehensive 10/23/2019 [facility] Glucose 138 mg/dL High 74-106 Metabolic Panel [address] [place], [place] [id number] [phone] BUN 13 mg/dL Normal 7-18 Creatinine 1.4 [...] 12-78 Alkaline Phosphatase 84 U/L Normal 45-117 Laboratory 10/23/2019 [facility] Bilirubin,Direct 0.2 Normal 0.0-0.2 test finding [address] mg/dL [place], [place] [id number] [phone] Bilirub 10/23/2019 N2N/CCD Import Direct Bilirubin 0.2 0.0-0.2 Direct SerPl-mCnc CBC 10/23/2019 [facility] White Blood Count 18.3 High 3.1-10.[address] K/uL [place], [place] [id number] [phone] Red Blood Count 4.18 M/uL Normal 3.90-5.40 [...] % 0.0 /100WBC < 10/ 100 WBC Appearance Ur 10/23/2019 N2N/CCD Import Urine Clarity Clear Clear Color Ur Auto 10/23/2019 N2N/CCD Import Urine Color Light-Yellow Yellow Glucose Ur Ql 10/23/2019 N2N/CCD Import Urine Glucose Negative Negative Strip.auto (Ua) Bilirub Ur Ql 10/23/2019 N2N/CCD Import Urine Bilirubin Negative Negative Strip.auto Ketones Ur Ql 10/23/2019 N2N/CCD Import Urine Ketones Negative Negative Strip.auto Sp Gr Ur 10/23/2019 N2N/CCD Import Urine Specific 1.009 Low 1.010-1.030 Refractometry [place] Hgb Ur Ql 10/23/2019 N2N/CCD Import Urine Blood Moderate High Negative Strip.auto pH Ur Strip.auto 10/23/2019 N2N/CCD Import Urine pH 6.5 6.5-7.5 Urobilinogen Ur 10/23/2019 N2N/CCD Import Urine < 2.0 < 2.0 Ql Strip.auto Urobilinogen Prot Ur Ql 10/23/2019 N2N/CCD Import Urine Protein Negative Negative Strip.auto Bacteria Bld 10/23/2019 N2N/CCD Import Aerobic Blood No Growth Aerobe Cult Culture Leukocyte 10/23/2019 N2N/CCD Import Urine Leukocyte Large High Negative esterase Ur Ql Esterase Strip.auto Nitrite Ur Ql 10/23/2019 N2N/CCD Import Urine Nitrite Negative Negative Strip.auto Bacteria Bld 10/23/2019 N2N/CCD Import Anaerobic Blood No Growth Anaerobe Cult Culture Lab Results 10/23/2019 N2N/CCD Import Urine RBC 6-10 0-2 WBC #/area UrnS 10/23/2019 N2N/CCD Import Urine WBC 31-50 0-5 HPF Epi Cells UrnS Ql 10/23/2019 N2N/CCD Import Urine Epithelial Many None Seen Micro Cells Blood Culture 10/23/2019 [facility] Blood Culture NO GROWTH: [address] Aerobic FINAL <[place] [address] NOTE> [phone] Blood Culture Anaerobic NO GROWTH: FINAL <SEE NOTE> 8 Bacteria Ur Ql 10/23/2019 N2N/CCD Import Urine Bacteria Few None Seen Auto Laboratory 10/23/2019 N2N/CCD Import Urine Culture Culture To comment Report Reflexed Follow Blood Culture 10/23/2019 [facility] Blood Culture NO GROWTH: [address] Aerobic FINAL <[place] [address] NOTE> [phone] Blood Culture Anaerobic NO GROWTH: FINAL <SEE NOTE> 10 Bacteria Ur Cult 10/23/2019 N2N/CCD Import Urine Culture No Growth: Final Report Anaerobic Culture 10/23/2019 [facility] Gram Stain; Test not 11 W/ GR Stain [address] Anaerobic Specimen perform <[place] [address] NOTE> [phone] Anaerobic Culture NO GROWTH Fluid Culture W/ 10/23/2019 [facility] Gram Stain MANY GRAM POSITI [address] <SEE NOTE> [place] [address] [phone] Gram Stain MODERATE WHITE B <SEE NOTE> 13 Fluid Culture STREP. AGALACTIA <SEE NOTE> Abnormal 14 Quantity MANY Recommended Therapy: PENICILLIN OR AM <SEE NOTE> 15 Ast-GP67 10/23/2019 [facility] Penicillin G <=0.12 Susceptible [address] [place] [address] [phone] Tetracycline >=16 Resistant Ampicillin <=0.25 Susceptible Clindamycin 4 Resistant Moxifloxacin <=0.25 Susceptible Levofloxacin 0.5 Susceptible Vancomycin <=0.5 Susceptible Bilirub Ur Ql 10/22/2019 N2N/CCD Import Urine Bilirubin Negative Negative Strip.auto Ketones Ur Ql 10/22/2019 N2N/CCD Import Urine Ketones Negative Negative Strip.auto Sp Gr Ur 10/22/2019 N2N/CCD Import Urine Specific 1.009 Low 1.010-1.030 Refractometry [place] Hgb Ur Ql 10/22/2019 N2N/CCD Import Urine [...] Urine Epithelial Moderate None Seen Auto Cells Lipase 10/22/2019 N2N/CCD Import Lipase 113 56-289 SerPl-cCnc Troponin I 10/22/2019 N2N/CCD Import Troponin I < 0.015 SerPl-mCnc [place] 10/22/2019 N2N/CCD Import [place] Level 0.66 0.60-1.20 SerPl-sCnc Color Ur Auto 10/22/2019 N2N/CCD Import Urine Color Colorless Yellow Appearance Ur 10/22/2019 N2N/CCD Import Urine Clarity Clear Clear Glucose Ur Ql 10/22/2019 N2N/CCD Import Urine Glucose (Ua) Negative Negative Strip.auto WBC # XXX Auto 10/21/2019 N2N/CCD Import White Blood Count 11.7 High 3.1- 10.7 RBC # Bld Auto 10/21/2019 N2N/CCD Import Red Blood Count 4.52 3.90-5.40 Hgb Bld-mCnc 10/21/2019 N2N/CCD Import Hemoglobin 13.2 11.6-15.8 Hct VFr Bld Auto 10/21/2019 N2N/CCD Import Hematocrit 40.6 36.0-46.1 MCV RBC Auto 10/21/2019 N2N/CCD Import Mean Corpuscular 89.8 80.9-99.0 Volume MCH RBC Qn Auto 10/21/2019 N2N/CCD Import [...] GFR 40 >60 black SerPl (Non- MDRD-ArVRat [place] GFR/Bsa 10/21/2019 N2N/CCD Import Estimated GFR 49 [...] 10/21/2019 N2N/CCD Import Calcium Level 8.9 8.5-10.1 SerPl-mCnc Prot SerPl-mCnc 10/21/2019 N2N/CCD Import Total Protein 7.2 6.4-8.2 Albumin 10/21/2019 N2N/CCD Import Albumin 3.8 3.4-5.0 SerPl-mCnc Globulin Ser 10/21/2019 N2N/CCD Import Globulin 3.4 1.9-4.3 Calc-mCnc Albumin/Glob 10/21/2019 N2N/CCD Import Albumin/Globulin 1.1 SerPl Ratio Bilirub 10/21/2019 N2N/CCD Import Total Bilirubin 0.2 0.2-1.0 SerPl-mCnc Ast SerPl-cCnc 10/21/2019 N2N/CCD Import Aspartate Amino 9 Low 15-37 Transf (Ast/Sgot) Alt SerPl-cCnc 10/21/2019 N2N/CCD Import Alanine 22 12-78 Aminotransferase (Alt/SGPT) Alp SerPl-cCnc 10/21/2019 N2N/CCD Import Alkaline 94 45-117 Phosphatase Lipase 10/21/2019 N2N/CCD Import Lipase 233 56-289 SerPl-cCnc Troponin I 10/21/2019 N2N/CCD Import Troponin I < 0.015 SerPl-mCnc Phosphate 10/12/2019 N2N/CCD Import Phosphorus Level 3.6 2.5-4.0 SerPl-mCnc Magnesium 09/07/2019 N2N/CCD Import Magnesium Level 2.7 [...] REPORT 8 NO GROWTH: FINAL REPORT 9 NO GROWTH: FINAL REPORT 10 NO GROWTH: FINAL REPORT 11 Test not performed 12 MANY GRAM POSITIVE COCCI 13 MODERATE WHITE BLOOD CELLS 14 STREP. AGALACTIAE (BETA GRP B) 15 PENICILLIN OR AMPICILLIN. Procedures Date Code Description Status 10/23/2019 66914 Laparoscopy; cholecystectomy Completed Medical Devices Description No Information Available Encounters Type Date Location Provider Dx Diagnosis Office Visit 07/16/2019 Cardiology Office Marium Foley R55 Syncope and 11:00a B., PA collapse E78.5 Hyperlipidemia, unspecified R42 Dizziness and giddiness I10 Essential (primary) hypertension Assessments Date Code Description Provider 11/17/2019 R10.9 Unspecified abdominal pain Mahesh Bauer M.D. 11/04/2019 K81.0 Acute cholecystitis Gisselle White, [employer] [...] acute Maria Chinchilla M.D. cholecystitis without obstruction 10/25/2019 A41.9 Sepsis, unspecified organism Maria Chinchilla M.D. 10/25/2019 N39.0 Urinary tract infection, site not Maria Chinchilla M.D. specified 10/24/2019 R10.11 Right upper quadrant pain Sky GrimmSarkis hammondsDTabitha 10/24/2019 K80.00 Calculus of gallbladder with acute GrimmOpal M.DTabitha cholecystitis without obstruction 10/24/2019 A41.9 Sepsis, unspecified organism Sky GrimmSarkis hammondsDTabitha 10/24/2019 N39.0 Urinary tract infection, site not GrimmOpal pickard M.D. specified 10/23/2019 K80.00 Calculus of gallbladder with acute Mahesh Bauer M.D. cholecystitis without obstruction 10/23/2019 R10.11 Right upper quadrant pain GrimmOpal M.DTabitha 10/23/2019 K56.50 Intestinal adhesions [bands], Mahesh Bauer M.D. unspecified as to partial versus complete obstruction 10/23/2019 K80.00 Calculus of gallbladder with acute Opla Grimm M.D. cholecystitis without obstruction 10/23/2019 R50.9 Fever, unspecified Opal Grimm M.DTabitha 10/23/2019 D72.829 Elevated white blood cell count, Sirisha Salima Joseph unspecified 10/22/2019 K80.00 Calculus of gallbladder with acute Mahesh Bauer M.D. cholecystitis without obstruction 10/22/2019 K56.50 Intestinal adhesions [bands], Mahesh Bauer M.D. unspecified as to partial versus complete obstruction 07/16/2019 R55 Syncope and collapse Marium Foley PA 07/16/2019 E78.5 Hyperlipidemia, unspecified Marium Foley PA 07/16/2019 R42 Dizziness and giddiness Marium Foley PA 07/16/2019 I10 Essential (primary) hypertension Alaina, Marlyss B., PA Plan of Treatment No Information Available Functional Status Functional Condition Comment Date Status Independent with all ADL's Active Mental Status Description No Information Available Referrals Description No Information Available
[2019-12-31 14:17] VITALS: BP 136/59
--- NOTE | 2019-12-31 15:05 | UC ---
Complaint Female HPI - HPI Summary HPI Summary: Pt presents with c/o sudden onset of urgency, frequency and dysuria that began to day. - History Of Current Complaint Chief Complaint: UCGU Stated Complaint: URINARY Time Seen by Provider: 12/31/19 14:45 Hx Obtained From: Patient Hx Last Menstrual Period: n/a ?: No Onset/Duration: Sudden Onset Timing: Intermittent, Lasting Seconds Severity Initially: Moderate Severity Currently: Moderate Pain Intensity: 7 Character: Sharp, Burning Aggravating Factor(s): Urination Alleviating Factor(s): Nothing Associated Signs And Symptoms: Positive: Negative - Risk Factors Ectopic Risk Factor: Negative Ovarian Torsion Risk Factor: Negative - Allergies/Home Medications Allergies/Adverse Reactions: Allergies Allergy/AdvReac Type Severity Reaction Status Date / Time buspirone [From BuSpar] Allergy Unknown Verified 12/31/19 14:11 Reaction Details cephalexin Allergy Unknown Verified 12/31/19 14:11 Reaction Details epinephrine Allergy Shortness Verified 12/31/19 14:11 of Breath antihistamines Allergy See Comment Uncoded 12/31/19 14:11 Home Medications: Home Medications DULoxetine DR CAP* [Cymbalta CAP*] 60 mg PO BEDTIME 04/21/13 [History Confirmed 12/31/19] Hydrochlorothiazide TAB* [Hydrodiuril TAB*] 25 mg PO DAILY 04/21/13 [History Confirmed 12/31/19] [place] Carbonate TAB* 300 mg PO BID 04/21/13 [History Confirmed 12/31/19] Ondansetron TAB* [Zofran 4 MG Tab*] 4 mg PO Q8H PRN 10/01/17 [History Confirmed 12/31/19] clonazePAM TAB(*) [Klonopin TAB(*)] 1 mg PO BID 01/11/18 [History Confirmed ] Acetaminophen TAB* [Tylenol TAB*] 650 mg PO Q4H PRN 03/23/19 [History Confirmed 12/31/19] Aspirin EC TAB* [Ecotrin EC Low Dose 81 MG*] 81 mg PO DAILY 03/23/19 [History Confirmed 12/31/19] Gabapentin CAP(*) [Neurontin 300 CAP(*)] 60 mg PO BEDTIME 03/23/19 [History Confirmed 12/31/19] Gabapentin CAP(*) [Neurontin 300 CAP(*)] 300 mg PO BID 03/23/19 [History Confirmed 12/31/19] Hydrocortisone 2.5% CREAM(NF) 1 applic TOPICAL BID PRN 03/23/19 [History Confirmed 12/31/19] Meclizine TAB* [Antivert 12.5 TAB*] 25 mg PO TID PRN 03/23/19 [History Confirmed 12/31/19] Omeprazole (Nf) [Prilosec (NF)] 40 mg PO BID 03/23/19 [History Confirmed ] Potassium Chlor TAB* [Potassium Chlor TAB 20 MEQ*] 20 meq PO BID 03/23/19 [ History Confirmed 12/31/19] Primidone 50 mg TAB (*) [Mysoline 250 mg TAB (*)] 50 mg PO BEDTIME 03/23/19 [ History Confirmed 12/31/19] Rosuvastatin (NF) [Crestor (NF)] 20 mg PO QPM 03/23/19 [History Confirmed ] Sucralfate TAB* [Carafate*] 1 gm PO ACHS 03/23/19 [History Confirmed 12/31/19] lamoTRIgine TAB(*) [Lamictal TAB(*)] 200 mg PO DAILY 03/23/19 [History Confirmed 12/31/19] Levothyroxine TAB* [Synthroid 150 MCG TAB*] 150 mcg PO QAM 11/14/19 [History Confirmed 12/31/19] Simethicone [Gas-X] 250 mg PO Q12H PRN 11/14/19 [History Confirmed 12/31/19] Nitrofurantoin Monohyd/M-Cryst [Macrobid 100 mg Capsule] 100 mg PO Q12H #10 cap 12/31/19 [Rx] Phenazopyridine TAB* [Pyridium 100 mg TAB*] 100 mg PO Q8H #6 tab 12/31/19 [Rx] PMH/Surg Hx/FS Hx/Imm Hx Previously Healthy: Yes Cardiovascular History: Cardiac Disease Psychological History: Anxiety, Depression, Bipolar Disorder - Surgical History Surgical History: Yes Surgery Procedure, Year, and Place: Cholecystectomy, 2020, [place]; [facility] KNEE REPLACEMENT, TONSILLECTOMY. D&C. L carpal tunnel surgery. cataracts. RIGHT SHOULDER SURGERY - Family History Known Family History: Positive: Cardiac Disease, Hypertension - Social History Occupation: Works From/At Home Lives: With Family Alcohol Use: None Substance Use Type: None Smoking Status (MU): Current Every Day Smoker Type: eCigarettes Amount Used/How Often: daily Length of Time of Smoking/Using Tobacco: 1 PPD x 37 Years (Quit ~2017 and started eCigs) Have You Smoked in the Last Year: Yes Household Exposure Type: Cigarettes - Immunization History Most Recent Influenza Vaccination: 2012 Most Recent Tetanus Shot: 02/04/19 Vaccination Up to Date: Yes Review of Systems All Other Systems Reviewed And Are Negative: Yes Constitutional: Positive: Negative Skin: Positive: Negative Eyes: Positive: Negative ENT: Positive: Negative Respiratory: Positive: Negative Cardiovascular: Positive: Negative Gastrointestinal: Positive: Negative Genitourinary: Positive: Dysuria, Frequency, Urgency Motor: Positive: Negative Neurovascular: Positive: Negative Musculoskeletal: Positive: Negative Neurological/Mental Status: Positive: Negative Psychological: Positive: Negative Is Patient Immunocompromised?: No Physical Exam - Summary Physical Exam Summary: Limited PE done due to COVID Triage Information Reviewed: Yes Appearance: Ill-Appearing - Pt states taht she is tired Vital Signs: Initial Vital Signs Temp 98.6 F 12/31/19 14:08 Pulse 66 12/31/19 14:08 Resp 22 12/31/19 14:08 BP 136/59 12/31/19 14:08 Pulse Ox 97 12/31/19 14:08 Vital Signs Reviewed: Yes Eye Exam: Normal ENT: Positive: Hearing grossly normal Respiratory: Positive: No respiratory distress Musculoskeletal Exam: Normal Neurological Exam: Normal Psychological Exam: Normal Skin Exam: Normal Complaint Female Dx - Differential Dx/Diagnosis Differential Diagnosis/HQI/PQRI: Urinary Tract Infection Provider Diagnosis: UTI (urinary tract infection) Discharge ED - Sign-Out/Discharge Documenting (check all that apply): Patient Departure All imaging exams completed and their final reports reviewed: No Studies - Discharge Plan Condition: Stable Disposition: HOME Prescriptions: Nitrofurantoin Monohyd/M-Cryst [Macrobid 100 mg Capsule] 100 mg PO Q12H #10 cap Phenazopyridine TAB* [Pyridium 100 mg TAB*] 100 mg PO Q8H #6 tab Patient Education Materials: Urinary Tract Infection in Women (ED) Referrals: Shruthi Zimmerman MD [Primary Care Provider] - If Needed - Billing Disposition and Condition Condition: STABLE Disposition: Home
== END 2019-12-31 15:11 | disposition home or self-care (01) ==
LOC: UCCORT 13:41
DX: N39.0 Urinary tract infection, site not specified (principal); Z88.1 Allergy status to other antibiotic agents; Z88.8 Allergy status to other drugs, medicaments and biological substances; Z96.653 Presence of artificial knee joint, bilateral; F17.290 Nicotine dependence, other tobacco product, uncomplicated
CPT/HCPCS: 81003; 87077; 87086; 87186; 99212; G0463

== ENCOUNTER 2022-03-14 13:51 | Observation (INO) ==
[2022-03-14 15:10] LABS: ABS Basophils 0.1 10^3/ul (0-0.2); ABS Eosinophils 0.3 10^3/ul (0-0.6); ABS Lymphocytes 2.8 10^3/ul (1.0-4.8); ABS Monocytes 0.6 10^3/ul (0-0.8); ABS Neutrophils 6.1 10^3/ul (1.5-7.7); Eosinophil % 3.4 %; Hematocrit 38 % (35-47); Hemoglobin 13.1 g/dL (12.0-16.0); Lymphocyte % 28.2 %; Mean Corpuscular HGB Conc 34 g/dL (31-36); Mean Corpuscular Hemoglobin 31 pg (27-31); Mean Corpuscular Volume 91 fL (80-97); Mean Platelet Volume 9.1 fL (7.4-10.4); Platelet Count 385 10^3/uL (150-450); Red Blood Count 4.21 10^6 /uL (3.70-4.87); Red Cell Distribution Width 13 % (10-15); White Blood Count 9.9 10^3/uL (3.5-10.8)
[2022-03-14 16:21] LABS: ALT 14 U/L (7-52); Albumin 4.3 g/dL (3.2-5.2); Albumin/Globulin Ratio 1.8 (1-3); Alkaline Phosphatase 56 U/L (35-149); Blood Urea Nitrogen 21 mg/dL (6-24); C Reactive Protein < 1.00 mg/L (<8.01); CO2 Carbon Dioxide 27 mmol/L (22-32); Calcium 9.8 mg/dL (8.6-10.3); Chloride 105 mmol/L (101-111); Globulin 2.4 g/dL (2-4); Glucose 89 mg/dL (70-100); Sodium 138 mmol/L (135-145); Total Protein 6.7 g/dL (6.4-8.9); eGFR CKD-EPI 62.9 (>60)
[2022-03-14 16:25] LABS: Anion Gap 6 mmol/L (2-11)
[2022-03-14] MEDS ORDERED: NS 0.9% 1000 ml BAG 1,000 ML IV SCH (18:00)
[2022-03-14] MEDS ORDERED: Lactated Ringers 1000 ml BAG 1,000 ML IV SCH (19:00)
[2022-03-14] MEDS ORDERED: fentaNYL 100 mcg/2 ml 50 MCG/ML VIAL ONE (19:29)
[2022-03-14] MEDS ORDERED: Midazolam 5 mg/5 ml VIAL 1 mg/ml 5 ml VIAL (5 mg) ONE (19:29)
[2022-03-14] MEDS ORDERED: Dexamethasone IV 4 MG/ML VIAL 1 ml VIAL ONE (19:29)
[2022-03-14] MEDS ORDERED: Propofol 10 MG/ML 20 ML BTL ONE (19:29)
[2022-03-14] MEDS ORDERED: Lidocaine 2% (CARDIAC or IV) 20 MG/ML 5 ML SYRINGE (100 MG) ONE (19:31)
[2022-03-14 19:44] LABS: Potassium Redraw 4.2 mmol/L (3.5-5.0)
[2022-03-14] MEDS ORDERED: Zosyn per Pharmacy NOTE FOLLOW UP SCH (20:00)
[2022-03-14] MEDS ORDERED: Vancomycin 1,000 MG in NS 0.9% 250 ml 250 ML IVPB ONE (20:47)
[2022-03-14] MEDS ORDERED: Bupivacaine 0.25% w/EPI 10 ML SDV ONE (20:50)
[2022-03-14] MEDS ORDERED: Vancomycin per Pharmacy 1 EA NOTE FOLLOW UP SCH (21:00)
[2022-03-14] MEDS ORDERED: Piperacillin/Tazobac ADVAN 3.375 GM in NS 0.9% 100 ml BAG 100 ML IV ONE (21:00)
[2022-03-14] MEDS ORDERED: Clindamycin 900 MG/D5W BAG 900 MG/50 ML BAG IVPB ONE (21:01)
[2022-03-14] MEDS ORDERED: Phenylephrine IV 10 MG/ML 1 ml VIAL ONE (21:17)
[2022-03-14] MEDS ORDERED: EPHEDrine (Pressors) 50 MG/ML VIAL ONE (21:19)
[2022-03-14] MEDS ORDERED: Bupivacaine 0.25% SDV PF 10 ML VIAL INJ ONE (21:23)
[2022-03-14] MEDS ORDERED: Vancomycin 1,500 MG in NS 0.9% 250 ml 250 ML IVPB ONE (21:30)
[2022-03-14] MEDS ORDERED: Naloxone 0.4 mg VIAL 0.4 mg/ml 1 ml VIAL IV PRN (22:02)
[2022-03-14] MEDS ORDERED: fentaNYL 100 mcg/2 ml 50 MCG/ML VIAL IV PRN (22:02)
[2022-03-14] MEDS ORDERED: Prochlorperazine 5 mg/ml 2 ml VIAL (10 mg) IV PRN (22:02)
[2022-03-15] MEDS ORDERED: Multivitamins/Minerals TAB PO SCH
[2022-03-15] MEDS ORDERED: DULoxetine DR 60 mg CAP PO SCH (00:30)
[2022-03-15] MEDS ORDERED: ZOSYN 3.375 GM Q8H per EXTENDED INFUSION IV SCH (06:00)
[2022-03-15 06:12] LABS: ABS Lymphocytes 1.2 10^3/ul (1.0-4.8); ABS Monocytes 0.2 10^3/ul (0-0.8); ABS Neutrophils 4.9 10^3/ul (1.5-7.7); Eosinophil % 0.1 %; Hematocrit 36 % (35-47); Hemoglobin 12.2 g/dL (12.0-16.0); Lymphocyte % 18.6 %; Mean Corpuscular HGB Conc 34 g/dL (31-36); Mean Corpuscular Hemoglobin 31 pg (27-31); Mean Corpuscular Volume 92 fL (80-97); Mean Platelet Volume 8.5 fL (7.4-10.4); Platelet Count 269 10^3/uL (150-450); Red Blood Count 3.97 10^6 /uL (3.70-4.87); Red Cell Distribution Width 13 % (10-15); White Blood Count 6.4 10^3/uL (3.5-10.8)
[2022-03-15 06:42] LABS: Calcium 9.3 mg/dL (8.6-10.3); Magnesium 2.2 mg/dL (1.9-2.7); Potassium 4.4 mmol/L (3.5-5.0); eGFR CKD-EPI 51.1 (>60)
[2022-03-15] MEDS ORDERED: Aspirin EC 81 mg TAB.EC (enteric coated) PO SCH (09:00)
[2022-03-15] MEDS ORDERED: Vancomycin 1000 MG in NS 0.9% 250 ML IVPB SCH (12:00)
[2022-03-15 12:14] VITALS: BP 134/78
[2022-03-16] MEDS ORDERED: Vancomycin Trough Check NOTE FOLLOW UP ONE (11:30)
== END 2022-03-15 15:20 | disposition home or self-care (01) ==
LOC: EDHOLD 13:51 → ED 13:51 → SUATTDRO 17:48 → AA 18:55 → SSU 23:22
PROVIDERS: ADMIT Internal Medicine; ATTEND Internal Medicine